=== PATIENT | female | born 1945 | race Caucasian/White ===

== ENCOUNTER 2016-09-19 13:31 | Observation (INO) | payer MEDICARE ==
[2016-09-19] MEDS ORDERED: NS 0.9% 1000 ML* 1,000 ML IV ONE (14:02)
[2016-09-19 14:35] LABS: Hematocrit 43 % (35-47); Hemoglobin 13.6 g/dl (12.0-16.0); Mean Corpuscular HGB Conc 32 g/dl (31-36); Mean Corpuscular Hemoglobin 27 pg (27-31); Mean Corpuscular Volume 84 fL (80-97); Mean Platelet Volume 8 um3 (7.4-10.4); Red Blood Count 5.05 10^6/ul (4.0-5.4); Red Cell Distribution Width 15 % (10.5-15); White Blood Count 14.7 10^3/ul (3.5-10.8)
[2016-09-19 14:48] LABS: BUN/Creatinine Ratio 20.3 (8-20); C Reactive Protein 36.28 mg/L (< 5.00); Calcium 9.3 mg/dL (8.6-10.3); EGFR African American 99.5 (>60); EGFR Non-African American 77.4 (>60); Magnesium 2.2 mg/dL (1.9-2.7); Potassium 3.6 mmol/L (3.5-5.0); Total Bilirubin 0.4 mg/dL (0.2-1.0)
[2016-09-19 14:49] LABS: Troponin I 0.01 ng/mL (<0.04)
--- NOTE | 2016-09-19 14:53 | RAD ---
INDICATION: Near syncope and unsteady COMPARISON: Similar examination dated October 06, 2012 TECHNIQUE: Contiguous axial sections of the brain were obtained from the skull base to the vertex without contrast. FINDINGS: The ventricles, cisterns and sulci exhibit symmetrical and age-appropriate involutional changes similar in appearance to the previous CT of the brain. There are periventricular and subcortical white matter hypoattenuation, including a 4 mm focus at the right frontal lobe (image 11 of 32), most consistent with chronic microvascular disease. Otherwise the lopez-white matter differentiation is adequately maintained and there is no sulcal effacement. No significant focal abnormality or mass effect is present. There is no evidence for intracranial hemorrhage. There is coarse atherosclerotic calcification of the left vertebral artery and the bilateral petrous carotid arteries. No significant focal osseous abnormality is present. The visualized portion of the paranasal sinuses and mastoid air cells appear clear. IMPRESSION: Chronic findings as described above without acute intracranial abnormality.
--- NOTE | 2016-09-19 14:54 | RAD ---
INDICATION: Near syncope COMPARISON: Most recent comparison chest x-ray is dated July 29, 2013 TECHNIQUE: Single AP portable view of the chest was obtained. FINDINGS: Image quality is compromised due to the relative inferiority of a portable chest x-ray. The heart and mediastinum exhibit normal size and contour. The lungs are grossly clear. There is no evidence of a large pleural effusion. Visualized bones are normal for the patient's age. IMPRESSION: No radiographic evidence for acute cardiopulmonary abnormality on this portable chest x-ray.
[2016-09-19 15:31] LABS: TSH (Thyroid Stimulating Horm) 1.14 mcIU/mL (0.34-5.60)
[2016-09-19 16:14] LABS: Urine Bacteria Absent (Absent); Urine Bilirubin Negative (Negative); Urine Glucose 3+(>=500 mg/dL) (Negative); Urine Nitrite Negative (Negative)
--- NOTE | 2016-09-19 17:08 | ED ---
Mary Loredo Edward, scribed for Jean-Pierre Harper MD on 09/19/16 at 1357 . Syncope/Near Syncope - HPI Summary HPI Summary: 71 y/o female presents to ED c/o near-syncopal episode this morning a little after 11:00. Patient was standing outside of [facility] when the feeling that she was about to faint came upon suddenly. Patient still feels lightheaded and slightly dizzy now - characterized as a "fuzzy feeling" in the head. No LOC. Associated sx: tachycardia and unsteady gait. Denies CP, SOTELO, extremity and facial weakness, bloody or black stool, diarrhea and trouble urinating or defecating. Patient states her symptoms are not aggravated or alleviated by anything. PMHx [place] in 1999, IDDM, and Asthma. Patient takes aspirin and plavix. SHx , tonsillectomy. - History Of Current Complaint Chief Complaint: EDDizziness Time Seen by Provider: 09/19/16 13:48 Hx Obtained From: Patient Onset/Duration: Sudden Onset - This morning at [facility], Still Present - "Fuzzy feeling" in head Context: Other - No LOC Activity At Onset: Other - Standing Associated Head Trauma: No Aggravating Factor(s): Nothing Alleviating Factor(s): Nothing Associated Signs And Symptoms: Dizzy - Light dizziness - "fuzzy head feeling", Lightheadedness - Risk Factors Cardiac Risk Factors: Diabetes, Prior [place] - 1999 - Allergies/Home Medications Allergies/Adverse Reactions: Allergies Allergy/AdvReac Type Severity Reaction Status Date / Time Sulfa Antibiotics Allergy Unknown Unknown Verified 09/19/16 13:59 Reaction Details PMH/Surg Hx/FS Hx/Imm Hx Previously Healthy: No Endocrine/Hematology History: Reports: Hx Anticoagulant Therapy, Hx Diabetes Cardiovascular History: Reports: Hx Angina, Hx Coronary Artery Disease, Hx Hypercholesterolemia - HLD, Hx Hypertension, Hx Myocardial Infarction Denies: Hx Congestive Heart Failure, Hx Valvular Heart Disease Respiratory History: Reports: Hx Asthma Denies: Hx Chronic Obstructive Pulmonary Disease (COPD) GI History: Reports: Hx Gastroesophageal Reflux Disease, Hx Hiatal Hernia Comment Only: Other GI Disorders - GERD History: Denies: Hx Renal Disease Sensory History: Reports: Hx Contacts or Glasses, Hx Hearing Problem Opthamlomology History: Reports: Hx Contacts or Glasses - Surgical History Surgery Procedure, Year, and Place: CARDIAC CATH WITH STENTS X3 IN 2001. C- SECTION. TONSILLECTOMY. LEFT BREAST BIOPSY/BENIGN. Hx Anesthesia Reactions: No Infectious Disease History: Denies: Traveled Outside the [place] in Last 30 Days - Family History Known Family History: Positive: Cardiac Disease - Father of [place], Other - Breast cancer (mother) Negative: Diabetes - Social History Occupation: Retired Lives: Alone Alcohol Use: None Substance Use Type: Reports: None Review of Systems Constitutional: Negative Eyes: Negative ENT: Negative Cardiovascular: Negative Negative: Chest Pain Respiratory: Negative Gastrointestinal: Negative Positive: Other - No trouble defecating, no bloody or black stool. Negative: Diarrhea Genitourinary: Negative Negative: dysuria Musculoskeletal: Negative - No extremity weakness, no facial weakness Skin: Negative Neurological: Other - Lightheadedness, light dizziness, near-syncope Negative: Headache Psychological: Normal All Other Systems Reviewed And Are Negative: Yes Physical Exam Triage Information Reviewed: Yes Vital Signs On Initial Exam: Initial Vitals Temp Pulse Resp BP Pulse Ox 98.4 F 103 16 150/65 100 09/19/16 13:40 09/19/16 13:40 09/19/16 13:40 09/19/16 13:40 09/19/16 13:40 Vital Signs Reviewed: Yes Appearance: Positive: Well-Appearing, No Pain Distress Skin: Positive: Warm, Skin Color Reflects Adequate Perfusion, Dry Head/Face: Positive: Normal Head/Face Inspection Eyes: Positive: EOMI, VAN ENT: Positive: Normal ENT inspection Neck: Positive: Supple, Nontender Respiratory/Lung Sounds: Positive: Clear to Auscultation, Breath Sounds Present Cardiovascular: Positive: Tachycardia - Slight Abdomen Description: Positive: Nontender, Soft Bowel Sounds: Positive: Present Musculoskeletal: Positive: Normal, Strength/ROM Intact Neurological: Positive: Normal, Sensory/Motor Intact, Alert, Oriented to Person Place, Time Psychiatric: Positive: Normal, Affect/Mood Appropriate - [place] Coma Scale Best Eye Response: 4 - Spontaneous Best Motor Response: 6 - Obeys Commands Best Verbal Response: 5 - Oriented Diagnostics - Vital Signs Vital Signs Temp Pulse Resp BP Pulse Ox 09/19/16 13:40 98.4 F 103 16 150/65 100 - Laboratory Lab Results: Lab Results 09/19/16 09/19/16 09/19/16 Range/Units 14:15 14:15 14:15 WBC 14.7 H (3.5-10.8) 10^3/ul RBC 5.05 (4.0-5.4) 10^6/ul Hgb 13.6 (12.0-16.0) g/dl Hct 43 (35-47) % MCV 84 (80-97) fL MCH 27 (27-31) pg MCHC 32 (31-36) g/dl RDW 15 (10.5-15) % Plt Count 309 (150-450) 10^3/ul MPV 8 (7.4-10.4) um3 Neut % (Auto) 88.7 H (38-83) % Lymph % (Auto) 5.1 L (25-47) % [place] % (Auto) 5.4 (1-9) % Eos % (Auto) 0.3 (0-6) % Baso % (Auto) 0.5 (0-2) % Absolute Neuts (auto) 13.0 H (1.5-7.7) 10^3/ul Absolute Lymphs (auto) 0.8 L (1.0-4.8) 10^3/ul Absolute Monos (auto) 0.8 (0-0.8) 10^3/ul Absolute Eos (auto) 0 (0-0.6) 10^3/ul Absolute Basos (auto) 0.1 (0-0.2) 10^3/ul Absolute Nucleated RBC 0 10^3/ul Nucleated RBC % 0 INR (Anticoag Therapy) 0.89 (0.89-1.11) APTT 29.4 (26.0-36.3) seconds D-Dimer, Quantitative < 200 (Less Than 230) ng/mL Sodium 135 (133-145) mmol/L Potassium 3.6 (3.5-5.0) mmol/L Chloride 103 (101-111) mmol/L Carbon Dioxide 24 (22-32) mmol/L Anion Gap 8 (2-11) mmol/L BUN 15 (6-24) mg/dL Creatinine 0.74 (0.51-0.95) mg/dL Est GFR ( Amer) 99.5 (>60) Est GFR (Non-Af Amer) 77.4 (>60) BUN/Creatinine Ratio 20.3 H (8-20) Glucose 278 H (70-100) mg/dL Lactic Acid (0.5-2.0) mmol/L Calcium 9.3 (8.6-10.3) mg/dL Magnesium 2.2 (1.9-2.7) mg/dL Total Bilirubin 0.40 (0.2-1.0) mg/dL AST 17 (13-39) U/L ALT 14 (7-52) U/L Alkaline Phosphatase 63 (34-104) U/L Total Creatine Kinase 148 (10-223) U/L CK-MB (CK-2) 4.1 (0.6-6.3) ng/mL Troponin I 0.01 (<0.04) ng/mL C-Reactive Protein 36.28 H (< 5.00) mg/L B-Natriuretic Peptide ( - 100) pg/mL Total Protein 7.0 (6.4-8.9) g/dL Albumin 4.0 (3.2-5.2) g/dL Globulin 3.0 (2-4) g/dL Albumin/Globulin Ratio 1.3 (1-3) Lipase 12 (11.0-82.0) U/L TSH 1.14 (0.34-5.60) mcIU/mL Urine Color Urine Appearance Urine pH (5-9) Ur Specific [place] (1.010-1.030) Urine Protein (Negative) Urine Ketones (Negative) Urine Blood (Negative) Urine Nitrate (Negative) Urine Bilirubin (Negative) Urine Urobilinogen (Negative) Ur Leukocyte Esterase (Negative) Urine WBC (Auto) (Absent) Urine RBC (Auto) (Absent) Ur Squamous Epith Cells (Absent) Urine Bacteria (Absent) Urine Glucose (Negative) 09/19/16 09/19/16 09/19/16 Range/Units 14:15 14:15 16:02 WBC (3.5-10.8) 10^3/ul RBC (4.0-5.4) 10^6/ul Hgb (12.0-16.0) g/dl Hct (35-47) % MCV (80-97) fL MCH (27-31) pg MCHC (31-36) g/dl RDW (10.5-15) % Plt Count (150-450) 10^3/ul MPV (7.4-10.4) um3 Neut % (Auto) (38-83) % Lymph % (Auto) (25-47) % [place] % (Auto) (1-9) % Eos % (Auto) (0-6) % Baso % (Auto) (0-2) % Absolute Neuts (auto) (1.5-7.7) 10^3/ul Absolute Lymphs (auto) (1.0-4.8) 10^3/ul Absolute Monos (auto) (0-0.8) 10^3/ul Absolute Eos (auto) (0-0.6) 10^3/ul Absolute Basos (auto) (0-0.2) 10^3/ul Absolute Nucleated RBC 10^3/ul Nucleated RBC % INR (Anticoag Therapy) (0.89-1.11) APTT (26.0-36.3) seconds D-Dimer, Quantitative (Less Than 230) ng/mL Sodium (133-145) mmol/L Potassium (3.5-5.0) mmol/L Chloride (101-111) mmol/L Carbon Dioxide (22-32) mmol/L Anion Gap (2-11) mmol/L BUN (6-24) mg/dL Creatinine (0.51-0.95) mg/dL Est GFR ( Amer) (>60) Est GFR (Non-Af Amer) (>60) BUN/Creatinine Ratio (8-20) Glucose (70-100) mg/dL Lactic Acid 1.4 (0.5-2.0) mmol/L Calcium (8.6-10.3) mg/dL Magnesium (1.9-2.7) mg/dL Total Bilirubin (0.2-1.0) mg/dL AST (13-39) U/L ALT (7-52) U/L Alkaline Phosphatase (34-104) U/L Total Creatine Kinase (10-223) U/L CK-MB (CK-2) (0.6-6.3) ng/mL Troponin I (<0.04) ng/mL C-Reactive Protein (< 5.00) mg/L B-Natriuretic Peptide 130 H ( - 100) pg/mL Total Protein (6.4-8.9) g/dL Albumin (3.2-5.2) g/dL Globulin (2-4) g/dL Albumin/Globulin Ratio (1-3) Lipase (11.0-82.0) U/L TSH (0.34-5.60) mcIU/mL Urine Color Straw Urine Appearance Clear Urine pH 7.0 (5-9) Ur Specific [place] 1.007 L (1.010-1.030) Urine Protein Negative (Negative) Urine Ketones Trace H (Negative) Urine Blood Negative (Negative) Urine Nitrate Negative (Negative) Urine Bilirubin Negative (Negative) Urine Urobilinogen Negative (Negative) Ur Leukocyte Esterase 2+ H (Negative) Urine WBC (Auto) 1+(6-10/hpf) H (Absent) Urine RBC (Auto) Absent (Absent) Ur Squamous Epith Cells Present H (Absent) Urine Bacteria Absent (Absent) Urine Glucose 3+(>=500 mg/dl) H (Negative) Result Diagrams: 09/19/16 14:15 09/19/16 14:15 Lab Statement: Any lab studies that have been ordered have been reviewed, and results considered in the medical decision making process. - Radiology Chest XRAY Xray Interpretation: No Acute Changes - No radiographic evidence for acute cardiopulmonary abnormality on this portable chest x-ray. Radiology Interpretation Completed By: Radiologist - CT Brain CT CT Interpretation: Positive (See Comments) - Chronic findings as described above without acute intracranial abnormality. CT Interpretation Completed By: Radiologist - EKG 1 EKG Rhythm: Sinus Tachycardia - @ 103 bpm EKG Interpretation: 14:11 - Prolonged QT interval, QTC of 502. Q-waves in III and aVF. EKG Comparison: No Significant Change - From 07/29/23 EKG Course/Dx Course Of Treatment: NO CRITICAL CARE TIME. WHEN PATIENT AMBULATED IN ED SHE STILL FELT UNSTEADY. SHE LIVES ALONE. SHE REPORTS A PRIOR PAIN LESS LA AND HAS CONCERNS THIS EPISODE COULD BE CARDIAC. DISCUSSED WITH HOSPITALIST; ADMIT STABLE. - Diagnoses Provider Diagnoses: Near syncope, Weakness - Physician Notifications Discussed Care of Patient With: Enio Kemp Time Discussed With Above Provider: 16:08 Instructed by Provider To: Admit As Inpatient - Dr. Kemp agreed to admit Discharge - Discharge Plan Condition: Stable Disposition: ADMITTED TO [facility] The documentation as recorded by the Mary santso Edward accurately reflects the service I personally performed and the decisions made by me, Jean-Pierre Harper MD.
[2016-09-19] MEDS ORDERED: hydrALAZINE IV* 20 MG/ML VIAL IV SLOW PU PRN (17:27)
[2016-09-19] MEDS ORDERED: Acetaminophen TAB* 325 MG PO PRN (17:43)
[2016-09-19] MEDS ORDERED: cefTRIAXone VIAL(*) 1,000 MG in NS 0.9% 50 ML* 50 ML IVPB SCH (18:00)
[2016-09-19] MEDS ORDERED: Enoxaparin(*) 40 MG/0.4 ML SYR SUBCUT SCH (18:00)
[2016-09-19] MEDS: Mometasone/Formoter 200/5 MDI INH SCH (20:11)
[2016-09-19] MEDS: Metoprolol Succinate XL TAB* 50 MG PO SCH (21:19)
[2016-09-19] MEDS ORDERED: Aspirin Low Dose CHEW TAB* 81 MG PO SCH (22:18)
[2016-09-19] MEDS ORDERED: Clopidogrel TAB* 75 MG PO SCH ×2 (22:18→23:20)
[2016-09-19] MEDS ORDERED: Montelukast Sodium TAB* 10 MG PO SCH ×2 (22:19→23:20)
--- NOTE | 2016-09-19 23:39 | HP ---
CC: Dr. Kaur; Dr. Jacome; Dr. Perry * MEDICINE HISTORY AND PHYSICAL: DATE OF ADMISSION: 09/19/16 PROVIDER: Debra Carroll NP ATTENDING PHYSICIAN: Dr. Trudi Baxter (as dictated by Debra Carroll NP). PRIMARY CARE PROVIDER: Dr. Kaur. PRIMARY SURGICAL FORCEPS FABRICATOR: Dr. Jacome. PRIMARY FOOD SERVICE ASSOCIATE: Dr. Perry. CHIEF COMPLAINT: Dizziness, near syncope. HISTORY OF PRESENT ILLNESS: Ms. Elder is a 71-year-old female, who presented to the ED this afternoon after experiencing a near syncopal episode this morning , shortly after 11 o'clock. The patient states that she went to [employer] this morning and sat through the service, was able to get through the service without any difficulty. After [employer]ah[employer], she was walking around and was standing outside talking to someone when she suddenly felt like she was getting warm and dizzy. She actually reached out and tried to grab the arm of the person she was talking to and the patient was then guided to a sitting position by other members of the [employer] and given water. She was taken home, but she still reported feeling dizzy and "fuzzy." She also reported that she felt more unsteady than usual. She did arrive in the ER and did receive IV fluids and states that she felt a little bit better after the IV fluids. She denies any actual loss of consciousness and she denies any dizziness at this time. She does report a remote history of a syncopal event for about 40 years ago that was secondary to heat stroke. The patient denies any chest pain, headache, focal weakness, difficulty with speech, nausea, vomiting or diarrhea, bleeding or bloody stools, dysuria or urinary frequency. She only endorses feeling of a racing heart beat and lightheadedness at the time of the event. She has not taken anything else for her symptoms and she does not endorse any aggravating or alleviating factors. The patient lives at home by herself. Her son is accompanying her. He states that her ambulation is at baseline and at baseline she is "a little shaky." In the ED, the patient had orthostatic vital signs done, which were negative. The was concern for her unsteady gait and the patient also has notable hypertension. She states that she usually has a blood pressure of 120 to 130 systolically. Currently, she is in the 180s and 190s. PAST MEDICAL HISTORY: 1. Type 1 diabetes. The patient uses the insulin pump. 2. History of coronary artery disease with known RCA occlusion of 95% with collaterals. 3. Previous [place] in 1999. 4. Diabetic neuropathy. 5. Diabetic retinopathy. 6. Hypertension. 7. COPD. 8. Asthma. 9. History of seizure disorder. The patient states that she had some focal seizures many years ago around 2002 and was on medications for short time and no longer takes medications. 10. GERD. 11. Dyslipidemia. PAST SURGICAL HISTORY: Includes: 1. . 2. Left breast biopsy. 3. Multiple cardiac catheterizations. HOME MEDICATIONS: 1. Cartia XT 180 mg daily. 2. Theophylline ER 300 mg daily. 3. Omeprazole 40 mg daily. 4. Simvastatin 5 mg daily. 5. Humalog insulin via pump. 6. Asmanex inhaler 220 mcg 1 puff inhaled q. day. 7. Advair 500 mg 1 puff b.i.d. 8. Montelukast 10 mg daily. 9. Clopidogrel 75 mg daily. 10. Metoprolol ER 50 mg b.i.d. 11. Furosemide 20 mg p.r.n. 12. Prednisone 4 mg daily. 13. Aspirin 81 mg daily. Note, these medications need to be confirmed with the pharmacy, and by the patient's report. ALLERGIES: Include SULFA and FISH. FAMILY HISTORY: She reports a history of cancer in her mother and history of heart disease in her father. SOCIAL HISTORY: The patient denies any tobacco use or smoking. She denies alcohol and illicit drug use. She is retired. She lives alone. Her son, Real Alvarado, is her surrogate decision maker in the event of an emergency. REVIEW OF SYSTEMS: As per HPI, all those not mentioned are negative. PHYSICAL EXAMINATION GENERAL: Ms. Elder is a well-appearing, well-developed, well-nourished female , lying in the ED stretcher in no acute distress. VITAL SIGNS: Temperature 98.4, heart rate 93, respiratory rate 14, blood pressure 185/____, and O2 saturation of 97% on room air. HEENT: Head is atraumatic, normocephalic. Face is symmetrical. Pupils are equal, round, and reactive to light. Extraocular movements are intact. External ears and nose are normal. Oral mucosa appears moist. There is no oropharyngeal erythema. NECK: Supple. No JVD noted. No lymphadenopathy appreciated. The patient has full range of motion. RESPIRATORY: Lungs are clear to auscultation. There is no accessory muscle use. CARDIAC: S1, S2 heart sounds. Regular rate and rhythm. The patient is slightly tachycardic. ABDOMEN: Soft, nontender, nondistended. Bowel sounds are present times all 4 quadrants. The patient has reducible hernia. MUSCULOSKELETAL: The patient has full range of motion. There is no clubbing or cyanosis. NEURO: The patient is alert and oriented x3. She moves all extremities. Cranial nerves II through XII are grossly intact. There is no pronator drift. Sensation is intact to light touch bilaterally to lower extremities. No focal deficits noted. SKIN: Limited examination, but appears warm, dry, and intact with no rashes or ulcerations visualized. DIAGNOSTIC STUDIES/LAB DATA: CBC: WBC 14.7, hemoglobin 13.6, hematocrit 43, platelet count 309. D-dimer less than 200, INR 0.89, PTT 29.4. CMP: Sodium 135, potassium 3.6, chloride 103, carbon dioxide 24, BUN 15, creatinine 0.74, glucose 278, lactic acid 1.4, calcium 9.3, magnesium 2.2. Total bilirubin 0.4, AST 17, ALT 14, alk phos 63, total CK 148. Troponin 0.01. CRP . BNP 130. Albumin 4.0, lipase 12. TSH 1.14. Urinalysis shows trace ketones, 2+ leukocyte esterase, 1+ urinary wbc's, and 3+ glucose. An EKG showed sinus tachycardia with T-wave inversions in leads II, III, and aVF that are present on previous EKGs. The patient does have a prolonged QTc interval of 502. There are no significant changes from her previous EKGs on record. Chest x-ray, impression: No radiographic evidence for acute cardiopulmonary abnormality on this portable chest x-ray. CT of the brain, impression: Chronic findings without acute intracranial abnormality. Old medical records were reviewed. ASSESSMENT AND PLAN: Ms. Elder is a 71-year-old female, who presented to the ER for concern for near syncope. We will admit her to the medicine floor for further monitoring with plans as follows: 1. Near syncope: Etiology of this is unclear. It appears that the patient may have had some sun exposure that may have contributed to her symptoms. It is also possible the patient was mildly dehydrated as she does report that she does not often drink enough fluids. In any event, it is worthwhile to monitor her on telemetry and see if there are repeat episodes. She did receive a liter of fluid in the ER. She is not orthostatic. The patient's blood pressure is markedly elevated, so I do not want to continue to give her fluid at this time. We will encourage p.o. fluids and reconcile her home medications in order to better control her blood pressure. Additionally, we will check troponins and the patient will be ordered neurological checks. The patient does have elevated white blood cell count, which may be secondary to her acute near syncopal event as a leukemoid reaction, we will recheck it tomorrow. The patient's urine does show some leukocyte esterase due to presence of near syncope and some worsening weakness. I will start the patient on ceftriaxone while we are awaiting urine culture. We will also check vital signs and I's and O's, and have the patient evaluated by PT/OT tomorrow. 2. Weakness: As above, the patient again will have PT/OT evaluation, appears to be secondary to potentially urinary tract infection. 3. Hypertension: The patient reports that she has better controlled blood pressure at home, so I am unsure if she took her medications today. She states that she did. It is unclear as to why she is little hypertensive. I suspect that she is not well controlled at home. She does report that her metoprolol was recently increased. We will continue her home medications once confirmed. Additionally, she is on a p.r.n. hydralazine for any persistent blood pressure. Continue to monitor closely. 4. Type 1 diabetes: Continue fingerstick blood glucose checks a.c., h.s., and the patient may use her home insulin pump for boluses. 5. History of coronary artery disease: Continue home beta tamra, aspirin, and Plavix. 6. History of gastroesophageal reflux disease: Continue PPI. 7. Dyslipidemia: Continue home statin. 8. Chronic obstructive pulmonary disease and asthma: Continue inhalers and prednisone, which the patient is on chronically. Continue home theophylline. 9. FEN: The patient is ordered a consistent carbohydrate diet. 10. DVT prophylaxis: Subcu Lovenox. 11. Code status: She is a full code. TIME SPENT: Time spent on this admission was approximately 60 minutes, more than half that time was spent [id number] with the patient and family obtaining history and physical, performing the physical examination, and reviewing the plan of care. Plan of care was also reviewed with my attending, Dr. Baxter, who is in agreement. DEBRA CARROLL, HISTOLOGY MANAGER [id number]/[id number] #: [id number]
[2016-09-20 05:15] LABS: Hematocrit 44 % (35-47); Hemoglobin 13.9 g/dl (12.0-16.0); Mean Corpuscular HGB Conc 32 g/dl (31-36); Mean Corpuscular Hemoglobin 27 pg (27-31); Mean Corpuscular Volume 86 fL (80-97); Mean Platelet Volume 8 um3 (7.4-10.4); Red Blood Count 5.08 10^6/ul (4.0-5.4); Red Cell Distribution Width 16 % (10.5-15); White Blood Count 10.7 10^3/ul (3.5-10.8)
[2016-09-20 05:25] LABS: BUN/Creatinine Ratio 16.1 (8-20); Calcium 8.9 mg/dL (8.6-10.3); EGFR Non-African American 94.9 (>60); Potassium 3.5 mmol/L (3.5-5.0)
[2016-09-20] MEDS ORDERED: CMC:Pantoprazole TAB (NF) 40 MG TAB PO SCH (06:00)
[2016-09-20 08:09] VITALS: BP 144/63
[2016-09-20] MEDS: Metoprolol Succinate XL TAB* 50 MG PO SCH (08:14)
[2016-09-20] MEDS: Mometasone/Formoter 200/5 MDI INH SCH (08:21)
[2016-09-20] MEDS ORDERED: Montelukast Sodium TAB* 10 MG PO SCH (09:00)
[2016-09-20] MEDS ORDERED: Aspirin Low Dose CHEW TAB* 81 MG PO SCH ×2 (09:00→21:00)
[2016-09-20] MEDS ORDERED: Clopidogrel TAB* 75 MG PO SCH (09:00)
[2016-09-20] MEDS ORDERED: Theophylline TAB* 300 MG PO SCH (09:00)
[2016-09-20] MEDS ORDERED: predniSONE TAB* 1 MG PO SCH (09:00)
[2016-09-20] MEDS ORDERED: Diltiazem CD CAP* 180 MG PO SCH (09:00)
[2016-09-20] MEDS ORDERED: Mometasone 220 MCG MDI INH SCH (09:00)
--- NOTE | 2016-09-20 10:04 | PN ---
Subjective Date of Service: 09/20/16 Interval History: Patient seen and examined at bedside. Reports feeling "so much better" and reports that she walked with PT this morning. Patient given outpatient referral for PT, which she states she will follow-up on. Denies fever/chills, SOTELO, weakness, dizziness, CP, SOB, abd pain, n/v. Patient feels improved and wishes to go home. Telemetry: SR 80s Family History: Unchanged from Admission Social History: Unchanged from Admission Past Medical History: Unchanged from Admission Objective Active Medications: Acetaminophen (Tylenol Tab*) 650 mg PO Q4H PRN PRN Reason: FEVER/PAIN Aspirin (Aspirin Low Dose Tab*) 81 mg PO DAILY@2100 [facility] Atorvastatin Calcium (Lipitor*) 10 mg PO 1700 [facility] Clopidogrel Bisulfate (Plavix Tab*) 75 mg PO DAILY@2100 [facility] Last Admin: 09/19/16 23:24 Dose: 75 mg Diltiazem HCl (Cardizem Cd Cap*) 180 mg PO DAILY [facility] Last Admin: 09/20/16 08:14 Dose: 180 mg Enoxaparin Sodium (Lovenox(*)) 40 mg SUBCUT Q24H [facility] Last Admin: 09/19/16 18:11 Dose: 40 mg Hydralazine HCl (Apresoline Iv*) 5 mg IV SLOW PU Q6H PRN PRN Reason: BLOOD PRESSURE Ceftriaxone Sodium 1,000 mg/ (Sodium Chloride) 50 mls @ 200 mls/hr IVPB Q24H [facility] Last Admin: 09/19/16 18:11 Dose: 200 mls/hr Metoprolol Succinate (Toprol Xl Tab*) 50 mg PO BID [facility] Last Admin: 09/20/16 08:14 Dose: 50 mg Mometasone Furoate/Formoterol Fumar (Dulera 200/5 Mdi*) 2 puff INH BID [facility] Last Admin: 09/20/16 08:21 Dose: 2 puff Montelukast Sodium (Singulair Tab*) 10 mg PO DAILY@2100 [facility] Last Admin: 09/19/16 23:24 Dose: 10 mg Pantoprazole Sodium (Protonix Tab (Nf)) 40 mg PO DAILY@0600 [facility] Last Admin: 09/20/16 05:35 Dose: 40 mg Prednisone (Deltasone Tab*) 4 mg PO DAILY [facility] Last Admin: 09/20/16 08:14 Dose: 4 mg Theophylline (Isma Dur*) 300 mg PO DAILY [facility] Last Admin: 09/20/16 08:14 Dose: 300 mg Vital Signs 09/19/16 09/19/16 09/19/16 17:35 17:40 20:00 Temperature 98.3 F 98.1 F Pulse Rate 93 93 Respiratory 12 18 20 Rate Blood Pressure 185/71 186/87 (mmHg) O2 Sat by Pulse 98 Oximetry 09/19/16 09/20/16 09/20/16 23:51 04:37 07:42 Temperature 98.1 F 97.9 F 97.6 F Pulse Rate 92 89 78 Respiratory 20 20 16 Rate Blood Pressure 157/64 154/67 144/63 (mmHg) O2 Sat by Pulse 98 97 99 Oximetry 09/20/16 08:24 Temperature Pulse Rate 78 Respiratory 16 Rate Blood Pressure (mmHg) O2 Sat by Pulse 98 Oximetry Oxygen Devices in Use Now: None Appearance: Older female, OOB to chair, NAD Eyes: PERRLA Ears/Nose/Mouth/Throat: Mucous Membranes Moist Neck: NL Appearance and Movements; NL JVP Respiratory: Symmetrical Chest Expansion and Respiratory Effort, Clear to Auscultation Cardiovascular: NL Sounds; No Murmurs; No JVD, RRR Abdominal: NL Sounds; No Tenderness; No Distention Extremities: No Edema Skin: No Rash or Ulcers Neurological: Alert and Oriented x 3, NL Gait, NL Muscle Strength and Tone Lines/Tubes/Other Access: Clean, Dry and Intact Peripheral IV Nutrition: Taking PO's Result Diagrams: 09/20/16 04:27 09/20/16 04:27 Additional Lab and Data: Lab Results 09/19/16 09/19/16 09/19/16 Range/Units 14:15 14:15 14:15 WBC 14.7 H (3.5-10.8) 10^3/ul RBC 5.05 (4.0-5.4) 10^6/ul Hgb 13.6 (12.0-16.0) g/dl Hct 43 (35-47) % MCV 84 (80-97) fL MCH 27 (27-31) pg MCHC 32 (31-36) g/dl RDW 15 (10.5-15) % Plt Count 309 (150-450) 10^3/ul MPV 8 (7.4-10.4) um3 Neut % (Auto) 88.7 H (38-83) % Lymph % (Auto) 5.1 L (25-47) % [place] % (Auto) 5.4 (1-9) % Eos % (Auto) 0.3 (0-6) % Baso % (Auto) 0.5 (0-2) % Absolute Neuts (auto) 13.0 H (1.5-7.7) 10^3/ul Absolute Lymphs (auto) 0.8 L (1.0-4.8) 10^3/ul Absolute Monos (auto) 0.8 (0-0.8) 10^3/ul Absolute Eos (auto) 0 (0-0.6) 10^3/ul Absolute Basos (auto) 0.1 (0-0.2) 10^3/ul Absolute Nucleated RBC 0 10^3/ul Nucleated RBC % 0 INR (Anticoag Therapy) 0.89 (0.89-1.11) APTT 29.4 (26.0-36.3) seconds D-Dimer, Quantitative < 200 (Less Than 230) ng/mL Sodium 135 (133-145) mmol/L Potassium 3.6 (3.5-5.0) mmol/L Chloride 103 (101-111) mmol/L Carbon Dioxide 24 (22-32) mmol/L Anion Gap 8 (2-11) mmol/L BUN 15 (6-24) mg/dL Creatinine 0.74 (0.51-0.95) mg/dL Est GFR ( Amer) 99.5 (>60) Est GFR (Non-Af Amer) 77.4 (>60) BUN/Creatinine Ratio 20.3 H (8-20) Glucose 278 H (70-100) mg/dL Lactic Acid (0.5-2.0) mmol/L Calcium 9.3 (8.6-10.3) mg/dL Magnesium 2.2 (1.9-2.7) mg/dL Total Bilirubin 0.40 (0.2-1.0) mg/dL AST 17 (13-39) U/L ALT 14 (7-52) U/L Alkaline Phosphatase 63 (34-104) U/L Total Creatine Kinase 148 (10-223) U/L CK-MB (CK-2) 4.1 (0.6-6.3) ng/mL Troponin I 0.01 (<0.04) ng/mL C-Reactive Protein 36.28 H (< 5.00) mg/L B-Natriuretic Peptide ( - 100) pg/mL Total Protein 7.0 (6.4-8.9) g/dL Albumin 4.0 (3.2-5.2) g/dL Globulin 3.0 (2-4) g/dL Albumin/Globulin Ratio 1.3 (1-3) Lipase 12 (11.0-82.0) U/L TSH 1.14 (0.34-5.60) mcIU/mL Urine Color Urine Appearance Urine pH (5-9) Ur Specific [place] (1.010-1.030) Urine Protein (Negative) Urine Ketones (Negative) Urine Blood (Negative) Urine Nitrate (Negative) Urine Bilirubin (Negative) Urine Urobilinogen (Negative) Ur Leukocyte Esterase (Negative) Urine WBC (Auto) (Absent) Urine RBC (Auto) (Absent) Ur Squamous Epith Cells (Absent) Urine Bacteria (Absent) Urine Glucose (Negative) 09/19/16 09/19/16 09/19/16 Range/Units 14:15 14:15 16:02 WBC (3.5-10.8) 10^3/ul RBC (4.0-5.4) 10^6/ul Hgb (12.0-16.0) g/dl Hct (35-47) % MCV (80-97) fL MCH (27-31) pg MCHC (31-36) g/dl RDW (10.5-15) % Plt Count (150-450) 10^3/ul MPV (7.4-10.4) um3 Neut % (Auto) (38-83) % Lymph % (Auto) (25-47) % [place] % (Auto) (1-9) % Eos % (Auto) (0-6) % Baso % (Auto) (0-2) % Absolute Neuts (auto) (1.5-7.7) 10^3/ul Absolute Lymphs (auto) (1.0-4.8) 10^3/ul Absolute Monos (auto) (0-0.8) 10^3/ul Absolute Eos (auto) (0-0.6) 10^3/ul Absolute Basos (auto) (0-0.2) 10^3/ul Absolute Nucleated RBC 10^3/ul Nucleated RBC % INR (Anticoag Therapy) (0.89-1.11) APTT (26.0-36.3) seconds D-Dimer, Quantitative (Less Than 230) ng/mL Sodium (133-145) mmol/L Potassium (3.5-5.0) mmol/L Chloride (101-111) mmol/L Carbon Dioxide (22-32) mmol/L Anion Gap (2-11) mmol/L BUN (6-24) mg/dL Creatinine (0.51-0.95) mg/dL Est GFR ( Amer) (>60) Est GFR (Non-Af Amer) (>60) BUN/Creatinine Ratio (8-20) Glucose (70-100) mg/dL Lactic Acid 1.4 (0.5-2.0) mmol/L Calcium (8.6-10.3) mg/dL Magnesium (1.9-2.7) mg/dL Total Bilirubin (0.2-1.0) mg/dL AST (13-39) U/L ALT (7-52) U/L Alkaline Phosphatase (34-104) U/L Total Creatine Kinase (10-223) U/L CK-MB (CK-2) (0.6-6.3) ng/mL Troponin I (<0.04) ng/mL C-Reactive Protein (< 5.00) mg/L B-Natriuretic Peptide 130 H ( - 100) pg/mL Total Protein (6.4-8.9) g/dL Albumin (3.2-5.2) g/dL Globulin (2-4) g/dL Albumin/Globulin Ratio (1-3) Lipase (11.0-82.0) U/L TSH (0.34-5.60) mcIU/mL Urine Color Straw Urine Appearance Clear Urine pH 7.0 (5-9) Ur Specific [place] 1.007 L (1.010-1.030) Urine Protein Negative (Negative) Urine Ketones Trace H (Negative) Urine Blood Negative (Negative) Urine Nitrate Negative (Negative) Urine Bilirubin Negative (Negative) Urine Urobilinogen Negative (Negative) Ur Leukocyte Esterase 2+ H (Negative) Urine WBC (Auto) 1+(6-10/hpf) H (Absent) Urine RBC (Auto) Absent (Absent) Ur Squamous Epith Cells Present H (Absent) Urine Bacteria Absent (Absent) Urine Glucose 3+(>=500 mg/dl) H (Negative) Assess/Plan/Problems-Billing Assessment: Ms. Elder is a 71 yo female with a PMH of Type 1 DM, HTN, CAD, COPD/asthma, GERD, hx of seizure disorder, and dyslipidemia who presented to the ED on 09/19 with near syncope and weakness. - Patient Problems (1) Near syncope Comment: Resolved, suspect secondary to dehydration No further episodes here in the hospital No arrhythmias noted on telemetry, trops negative Patient cleared by PT/OT for return to home (2) Weakness Code(s): R53.1 - WEAKNESS Comment: Following near syncopal episode, suspect secondary to dehydration Now resolved PT/OT consults - no acute needs identified (3) HTN (hypertension) Code(s): I10 - ESSENTIAL (PRIMARY) HYPERTENSION Comment: SBP 180s-190s in ED yesterday Improved, once home meds resumed Unclear etiology, as patient states she is normally well controlled. Potentially stress, IVF, white coat syndrome, missed home meds. Patient recommended follow-up with PCP, if continued elevation, will need medication adjustment. (4) Type 1 diabetes mellitus Comment: BG fairly well controlled, patient using home insulin pump Type 1 secondary to measles infection as a child With neuropathy and retinopathy HgbA1c 8.9 [facility] referral for outpatient diabetes education (5) History of coronary artery disease Code(s): Z86.79 - PERSONAL HISTORY OF OTHER DISEASES OF THE CIRCULATORY SYSTEM Comment: Continue home ASA, clopidogrel, metoprolol. Stable, no c/o chest pain or other concerning symptoms Troponins negative, no significant changes to EKG (Q waves and T wave inversions seen consistent with previous EKG) Outpatient follow-up with cardiology as previously scheduled. (6) GERD (gastroesophageal reflux disease) Code(s): K21.9 - GASTRO-ESOPHAGEAL REFLUX DISEASE WITHOUT ESOPHAGITIS Comment : Continue omeprazole. (7) Dyslipidemia Code(s): E78.5 - HYPERLIPIDEMIA, UNSPECIFIED Comment: Continue statin. (8) COPD (chronic obstructive pulmonary disease) Code(s): J44.9 - CHRONIC OBSTRUCTIVE PULMONARY DISEASE, UNSPECIFIED Comment: Continue home prednisone, Advair, Asmanex. (9) DVT prophylaxis Comment: SQ Lovenox Status and Disposition: D/c to home.
[2016-09-20] MEDS ORDERED: Atorvastatin* 10 MG TAB PO SCH (17:00)
--- NOTE | 2016-09-20 22:42 | DS ---
CC: Dr. Kaur; Dr. Jacome; Dr. Perry * DISCHARGE SUMMARY: DATE OF ADMISSION: 09/19/16 DATE OF DISCHARGE: 09/20/16 PROVIDER: Debra Carrlol NP ATTENDING PHYSICIAN: Dr. Leann Rossi * (as dictated by Debra Carroll NP) PRIMARY CARE PROVIDER: Dr. Kaur. PRIMARY DISCHARGE DIAGNOSES: 1. Near syncope. 2. Weakness. 3. Hypertension. SECONDARY DISCHARGE DIAGNOSES: 1. Type 1 diabetes. 2. History of coronary artery disease with known right coronary artery occlusion of 95% with collaterals. 3. Previous myocardial infarction in 1999. 4. Diabetic neuropathy. 5. Diabetic retinopathy. 6. Chronic obstructive pulmonary disease. 7. Asthma. 8. History of seizure disorder, not on antiepileptics. 9. Gastroesophageal reflux disease. 10. Dyslipidemia. MEDICATIONS AT DISCHARGE: 1. Prednisone 4 mg daily. 2. Omeprazole 40 mg daily. 3. Rosuvastatin 5 mg daily. 4. Mometasone 220 mcg one puff inhaled daily. 5. Diltiazem 180 mg q.p.m. 6. Clopidogrel 75 mg at bedtime. 7. Aspirin 81 mg daily. 8. Albuterol inhaler 2 puffs inhaled q.i.d. p.r.n. 9. Theophylline ER 300 mg daily. 10. Furosemide 20 mg daily p.r.n. 11. Advair 1 puff inhaled b.i.d. 12. Nitroglycerin 0.4 mg sublingual q. 5 minutes p.r.n. 13. Singulair 10 mg at bedtime. 14. Metoprolol succinate XL 50 mg daily. 15. Insulin lispro via pump, maximum daily dose 80 units daily. Note, these medications were obtained from [facility] in [place] as the patient did not recall and the office was not open for inquiry. HOSPITAL COURSE OF STAY: For full details, please refer to the H and P provided on 09/19/16. In summary, Ms. Elder is a 71-year-old female who presented to the ER on 09/19/16 after a near-syncopal event that occurred at [facility]. The patient reports making it to the [facility] service and walking around and suddenly feeling dizzy and as if she is going to pass out. The feeling persisted and she was brought in to the ER where she received fluids. The patient states that she got better after receiving fluids, but still felt shaky. She was unable to safely ambulate in the ER and there was concern for discharge to home as she does live by herself. She was admitted overnight for further observation and monitoring. No further episodes were noted and she did feel better the following morning. She did work with physical therapy and occupational therapy, who identified no acute concerns or needs for home. The patient was referred to outpatient physical therapy for further strengthening. She was advised to use her cane to help with balance. No arrhythmias noted on telemetry. Orthostatic vital signs were negative. Troponins were negative for acute coronary syndrome and there were no ischemic EKG changes. The patient denied chest pain or any other concerning symptoms throughout her stay. The only issue of concern was her blood pressure, which was elevated in the ER at 180 to 190 systolically. However, once her home medications were resumed, this improved and her last documented blood pressure prior to discharge was 144/63. Her heart rate was 78. The patient states that her blood pressure was typically well controlled and is usually in the 120s to 130s systolically. She was advised to continue to monitor this and follow up with Dr. Kaur in the event that this blood pressure elevation persists. The patient verbalized understanding. No further complaints or needs identified. The patient's blood sugar was mostly well controlled here in the hospital. Her hemoglobin A1c was noted to be 8.9. She did receive a referral to the [facility] for diabetes education. CONCERNS AT DISCHARGE: Ms. Elder is discharged to home on 09/20/16. She has been advised to follow up with her PCP within the week. The patient is also scheduled to see Dr. Jacome this year and follow up with Dr. Perry as well. The patient was advised to follow up as previously indicated by those offices. Outpatient followup, the patient needs to have blood pressure monitoring at her followup visit to ensure that she does not have persistent hypertension. Again , the patient had reported blood pressures as high as 195/70 here in the hospital, but this did improve prior to discharge. DIET: Consistent carbohydrate, heart healthy diet. ACTIVITY: As tolerated. CONDITION: Improved, stable. DISPOSITION: To home. TIME SPENT: Time spent on this discharge was approximately 40 minutes. Again, this is only a brief summary of the patient's hospital course of stay. For full details, please refer to the full medical record. If you have any further questions or need further assistance, please feel free to contact me at [phone]. DEBRA CARROLL NP [id number]/CPS #: [id number] [facility]
== END 2016-09-20 11:21 | disposition home or self-care (01) ==
LOC: ED 13:31 → MEDTELE 16:28 → OBSVTOIN 17:17 → INTOOBSV 17:17 → UNDODISOB 09-20 11:21
PROVIDERS: ADMIT Internal Medicine; ATTEND Hospitalist
DX: R55 Syncope and collapse (principal); R53.1 Weakness; I10 Essential (primary) hypertension; I25.10 Atherosclerotic heart disease of native coronary artery without angina pectoris; E10.40 Type 1 diabetes mellitus with diabetic neuropathy, unspecified; E10.319 Type 1 diabetes mellitus with unspecified diabetic retinopathy without macular edema; Z79.4 Long term (current) use of insulin; Z96.41 Presence of insulin pump (external) (internal); J44.9 Chronic obstructive pulmonary disease, unspecified; J45.909 Unspecified asthma, uncomplicated; G40.909 Epilepsy, unspecified, not intractable, without status epilepticus; K21.9 Gastro-esophageal reflux disease without esophagitis; E78.5 Hyperlipidemia, unspecified; Z79.899 Other long term (current) drug therapy; Z88.2 Allergy status to sulfonamides; R94.31 Abnormal electrocardiogram [ECG] [EKG]
CPT/HCPCS: 36415; 70450; 71010; 80048; 80053; 81003; 81015; 82550; 82553; 83036; 83605; 83690; 83735; 83880; 84443; 84484; 85025; 85379; 85610; 85730; 86140; 87086; 93005; 94640; 94760; 96361; 96372; 96374; 99284; A9270-GY; G0378; J0696; J1650

== ENCOUNTER 2018-03-18 13:53 | Emergency (ER) | payer MEDICARE ==
--- OUTSIDE RECORDS SUMMARY | 2018-03-18 13:58 | XMS REPORT | Continuity of Care Document ---
:1945 External Reference #:[id number] Author Name Luis Aruna Care Team Providers Name Role Phone Sebastian Euceda MD Primary Care Physician Unavailable Payers Type Date Identification Numbers Payment Provider Subscriber Policy Number: [id number] [employer] Vivi Sabillon Group Number: [id number] [id number] PayID: [id number] [place] [address] Advance Directives Description No Information Available Problems Date Description Provider Status Onset: 09/01/2011 Coronary arteriosclerosis [place] Jacome M.D. Active Onset: 09/01/2011 Difficulty breathing Orlando Jacome M.D. Active Onset: 09/01/2011 Paroxysmal supraventricular Orlando Jacome M.D. Active tachycardia Onset: 09/01/2011 Benign essential hypertension Orlando Jacome M.D. Active Onset: 06/05/2013 Tachycardia Orlando Jacome M.D. Active Onset: 06/05/2013 Chest pain Orlando Jacome M.D. Active Onset: 06/05/2013 Type 1 diabetes mellitus Orlando Jacome M.D. Active uncontrolled Onset: 07/06/2013 Chronic diastolic heart failure [facility] Active Onset: 07/06/2013 Heart murmur [facility] Schedule Active Onset: 01/03/2015 Essential hypertension LYN Bey Active Family History Date Family Member(s) Problem(s) Comments : (age 73 Years) Father due to NC : (age 83 Years) Mother due to Cancer, Breast Mother due to Cancer, Bladder () Social History Type Date Description Comments Sex Unknown Marital Status Lives With Alone with 2 cats and a dog ETOH Use Denies alcohol use Tobacco Use Start: Unknown Patient has never smoked Recreational Drug Use Denies Drug Use Smoking Status Reviewed: 03/01/18 Patient has never smoked Exercise Type/Frequency Exercises regularly every other days - bicycle, TM, walking, some weights Allergies, Adverse Reactions, Alerts Date Description Reaction Status Severity Comments 02/17/2005 Sulfa Active hives Medications Medication Date Status Form Strength Qnty SIG Indications Ordering Provider Nitrolingual 07/13/ Active Solution 0.4mg/Spr 1unit as needed Radha Rosas 2018 ay s chest pain. Foster, if chest N.P. pain persists after 10 minutes, call 911. Crestor 01/25/ Active Tablets 5mg 90tab 1 by mouth [place] 2015 s every other F. day Michelle Jacome Furosemide 01/03/ Active Tablets 20mg 30tab 1 tab by [place] 2014 s mouth as F. needed only lola Jacome M.D. significant le edema Aspirin 06/29/ Active Tablets 81mg 1 PO qd [place] 2007 Carmenza Jacome M.D. Toprol XL 09/01/ Active Tablets ER 25mg 180ta 2 tablet by [place] 2005 24HR bs mouth daily Carmenza Jacome M.D. Prednisone 02/17/ Active Tablets 4mg 1 po qd [place] 2004 Carmenza Jacome M.D. Humalog 02/16/ Active Injection by insulin [place] Insulin 2005 pump Carmenza Jacome M.D. Singulair 02/16/ Active Tablets 10mg 30tab One qd At hs [place] 2004 s Carmenza Jacome M.D. Plavix 02/16/ Active Tablets 75mg 30tab 1 PO qd [place] 2004 roberto Jacome M.D. Alprazolam / Active Tablets 0.25mg 1/2-1 tab by Unknown 0000 mouth as needed Advair Diskus / Active Aerosol 500-50mcg 1 puff twice Unknown 0000 /Dose a day Omeprazole / Active Capsules DR 40mg 1 po qd Unknown 0000 Proair HFA / Active Aerosol 108(90Bas 2 puffs by Unknown 0000 e) mouth every mcg/Act 4 hours as needed Meclizine HCL 00/00/ Active Tablets 25mg 1-2 tablet Unknown 0000 every 8 hours as needed Theophylline 00/00/ Active Tablets ER 300mg take 1 Unknown ER 0000 12HR tablet by mouth daily Crestor 05/06/ Hx Tablets 5mg 30tab 1 by mouth [place] 2014 - three times F. 05/07/ a week Ayaz, 2014, Michelle Tuesday and Tuesday Univasc 04/18/ Hx Tablets 7.5mg 30tab 1/2 PO qpm Orlando 2014 - on odd days F. 04/25/ Macharu, 2014 M.D. Lasix 04/18/ Hx Tablets 20mg 30tab 1 by mouth [place] 2014 - every day as F. 04/25/ needed Ayaz, 2014 M.D. Atorvastatin 06/05/ Hx Tablets 10mg 45tab 1/2 by mouth [place] Calcium 2013 - daily F. 01/25/ (increased use201505/29/15) Jerome.Kylee Pravastatin 07/18/ Hx Tablets 10mg 45tab 1/2 po qd [place] Sodium 2012Arminda Jacome M.D. Pravastatin 02/02/ Hx Tablets 5mg 30tab 1 po qd [place] Sodium 2011 - . 02/02/ Amaliausemelodie, 2011 KimD. Pravastatin 02/02/ Hx Tablets 5mg 30tab 1 po qd [place] Sodium 2011 - . 07/18/ Ayaz, 2012 MArmindaD. Pravachol 10/11/ Hx Tablets 5mg 30tab 1/2 po tiw [place] 2011 - . 02/02/ Mausemelodie, 2011 M.D. Pravachol 10/06/ Hx Tablets 20mg 45tab 1/2 tablet [place] 2011 - po qhs . 10/11/ charu, 2011 KimDArminda Zocor 08/31/ Hx Tablets 10mg 30tab 1 po hs [place] 2011 - F. 10/06/ Amaliauser, 2011 KimDArminda Zocor 12/17/ Hx Tablets 20mg 1 po qhs [place] 2009 - . 08/31/ Mauser, 2011 M.D. Zocor 10/07/ Hx Tablets 20mg 100ta 1 po qhs [place] 2009 - bs F. 10/07/ Mauser, 2009 M.D. Zocor 10/07/ Hx Tablets 10mg 90tab 1 po hs [facility] 2009 - s F. 12/17/ Mauser, 2009 M.D. Lipitor 07/01/ Hx Tablets 10mg 1 po qhs [place] 2008 - F. 10/07/ Mauser, 2009 M.D. Lipitor 11/20/ Hx Tablets 20mg One Tab PO [place] 2007 - QHS F. 07/01/ Mauser, 2008 M.D. Lipitor 06/29/ Hx Tablets unknown 1 po qd [place] 2007 - F. 11/20/ Mauser, 2007 M.D. Simvastatin 06/20/ Hx Tablets 40mg 30tab 1 PO QHS [place] 2007 - s F. 06/29/ Mauser, 2007 M.D. KCL 12/09/ Hx Tablet 20Meq 30tab 1 PO qd [place] 2006 - s F. 07/01/ Mauser, 2008 M.D. Nitro-Dur 12/07/ Hx Patches 0.2mg/HR 90uni 1 patch qd [place] 2006 - 24HR ts F. 12/19/ Mauser, 2006 on in the M.D. am, off in the pm Tiazac 12/02/ Hx Capsules 180mg 90cap 1 po qhs [place] 2005 - s F. 03/10/ Mauser, 2016 M.D. Toprol XL 08/24/ Hx Tablets 12.5mg 1 po qd [place] 2005 - F. 09/01/ Mauser, 2005 M.D. Toprol XL 08/18/ Hx Tablets 50mg 30tab 1/2 po qd [place] 2005 - s F. 08/24/ Mauser, 2006 M.D. Nitrodisc 08/18/ Hx Patches 0.1mg/Lucia 90uni apply in am [place] 2005 - r ts remove at hs . 09/01/ Mauser, 2005 M.D. Zetia 02/17/ Hx Tablets 10mg 90tab 1 po qd [place] 2004 - s F. 06/20/ Mauser, 2008 M.D. Zocor 02/17/ Hx Tablets 20mg 30tab One Q hs [place] 2004 - s F. user, 2007 Jaime. Keppra 02/17/ Hx Tablets 500mg 1 po qd [place] 2004 - F. user, 2005 M.Edilson. Albuterol 02/17/ Hx Aerosol 90mcg/Dos 2 Puffs qid [place] Inhalation 2004 - e prn F. , 2017 M.Edilson. Nitrospray 02/17/ Hx Kinney 0.4mg 25uni as needed [place] 2004 - ts chest pain F. user, 2018 MShaneka Keppra 02/16/ Hx Tablets 500mg bid [place] 2004 - F. user, 2004 Michelle Univasc 15/ Hx Tablets 3.75 30tab 1 PO qpm [place] 2004 - s F. user, 2014 M.Edilson. Nexium 15/ Hx Capsules 40mg 30cap 1 PO qd [place] 2004 - s F. user, 2016 M.Kylee Lasix 15/ Hx Tablets 20mg 30tab 1 PO qd [place] 2004 - s F. user, 2014 MSaida. Advair Diskus 15/ Hx Inhaler 250mcg;50 1 puff bid [place] 2004 - mcg . user, 2014 Michelle Tiazac 15/ Hx Capsules 180mg 90cap 1 po qd [place] 2004 - s F. user, 2005 Michelle Aspirin 15/ Hx Tablets 325mg 1 PO qd [place] Enteric Coated 2004 - F. user, 2007 Michelle Prednisone /15/ Hx Tablets 3mg 1 po qd [place] 2004 - F. user, 2004 M.Edilson. Theophylline /15/ Hx Capsules 400mg 1 poqpm [place] 2004 - F. user, 2017 Michelle Lescol 15/ Hx Capsules 40mg one qhs [place] 2004 - F. 02/16/ Ayaz 2004 M.D. Vytorin 02/16/ Hx Tablets 10mg;20 90tab 1 po qd [place] 2005 - mg s F. 02/17/ Ayaz 2004 M.D. Atorvastatin / Hx Tablets 10mg 90tab 1 po qd Other Calcium 0000 - s Ordering 2013 Furosemide 00/ Hx Tablets 1 4xweek Unknown 0000 - 2014 Co Q10 Maximum / Hx 200mg 1 tablet Unknown Strength 0000 - daily 2017 Cartia XT / Hx Caps ER 180mg 1 po qd Unknown 0000 - 24HR 2017 Montelukast / Hx Tablets 10mg 1 by mouth Unknown Sodium 0000 - every day prn 2017 Medications Administered in Office Medication Date Status Form Strength Qnty SIG Indications Ordering Provider Inj, Administered Injection Bunny Bains Regadenoson, 016 Post, 0.1 MG M.D., FACC, FASNC Inj, Administered Injection Orlando F. Regadenoson, 016 Mauser, 0.1 MG M.D. Technetium TC Administered Injection Bunny Bains 99M 016 Sincere Tetrofosmin, MSaida., FACC, Per Unit Dose FASNC Up To 40 Millicuries Technetium TC Administered Injection Orlando F. 99M 016 Mauser, Tetrofosmin, M.D. Per Unit Dose Up To 40 Millicuries Immunizations Description No Information Available Vital Signs Date Vital Result Comment 03/01/2018 8:56am Height 65 inches 5'5" Weight 170.00 lb Heart Rate 84 /min left radial, regular BP Systolic Sitting 125 mmHg right arm BP Diastolic Sitting 58 mmHg right arm BMI (Body Mass Index) 28.3 kg/m2 Ejection Fraction 60-65% echo 06/27/17 07/13/2017 11:39am Height 65 inches 5'5" Weight 184.00 lb w/shoes Heart Rate 80 /min BP Systolic Sitting 126 mmHg L/A reg cuff BP Diastolic Sitting 78 mmHg L/A reg cuff BMI (Body Mass Index) 30.6 kg/m2 Ejection Fraction 60-65% echo 06/27/2017 06/01/2017 1:40pm Height 65 inches 5'5" Weight 183.25 lb Heart Rate 90 /min BP Systolic Sitting 130 mmHg LA, reg cuff BP Diastolic Sitting 72 mmHg LA, reg cuff BMI (Body Mass Index) 30.5 kg/m2 Ejection Fraction 60%-65% echo 12/05/14 02/16/2017 1:06pm Height 65 inches 5'5" Weight 186.25 lb with shoes Heart Rate 86 /min BP Systolic Sitting 140 mmHg LA reg cuff BP Diastolic Sitting 76 mmHg LA reg cuff BP Systolic Standing 128 mmHg la repeat sit BP Diastolic Standing 128 mmHg la repeat sit BMI (Body Mass Index) 31.0 kg/m2 Ejection Fraction 59% NLM 05/06/15 03/18/2016 1:05pm Height 65 inches 5'5" Weight 189.00 lb Heart Rate 96 /min BP Systolic Sitting 118 mmHg LA large cuff BP Diastolic Sitting 64 mmHg LA large cuff BP Systolic Standing 118 mmHg LA BP Diastolic Standing 64 mmHg LA Respiratory Rate 16 /min BMI (Body Mass Index) 31.4 kg/m2 Ejection Fraction 60-65% 12/05/14 01/26/2016 8:17am Height 65 inches 5'5" Weight 189.25 lb with shoes Heart Rate 88 /min BP Systolic Sitting 128 mmHg LA lrg cuff BP Diastolic Sitting 68 mmHg LA lrg cuff BMI (Body Mass Index) 31.5 kg/m2 Ejection Fraction 59% NLM 05/06/15 01/03/2015 1:14pm Height 65 inches 5'5" Weight 192.00 lb no shoes Heart Rate 90 /min BP Systolic Sitting 140 mmHg LA, reg cuff BP Diastolic Sitting 76 mmHg LA, reg cuff BP Systolic Standing 138 mmHg LA BP Diastolic Standing 78 mmHg LA Respiratory Rate 18 /min BMI (Body Mass Index) 31.9 kg/m2 Ejection Fraction 60-65% 12/05/14 12/04/2014 2:11pm Height 65 inches 5'5" Weight 190.00 lb w/ shoes Heart Rate 92 /min BP Systolic Sitting 142 mmHg Ra, reg BP Diastolic Sitting 76 mmHg Ra, reg BMI (Body Mass Index) 31.6 kg/m2 12/04/2014 2:00pm Height 65 inches 5'5" Ejection Fraction 60-65% as of 07/06/13 echo 06/10/2014 10:54am Height 65 inches 5'5" Weight 185.75 lb Heart Rate 86 /min BP Systolic Sitting 128 mmHg left arm, large cuff BP Diastolic Sitting 74 mmHg left arm, large cuff BP Systolic Standing 120 mmHg left arm, large cuff BP Diastolic Standing 72 mmHg left arm, large cuff Respiratory Rate 14 /min BMI (Body Mass Index) 30.9 kg/m2 04/18/2014 1:58pm Height 65 inches 5'5" Weight 187.75 lb wiithout shoes Heart Rate 90 /min BP Systolic Sitting 156 mmHg LA reg cuff BP Diastolic Sitting 80 mmHg LA reg cuff BP Systolic Recheck 142 mmHg La reg cuff BP Diastolic Recheck 82 mmHg La reg cuff Respiratory Rate 18 /min BMI (Body Mass Index) 31.2 kg/m2 06/05/2013 1:17pm Height 65 inches 5'5" Weight 188.00 lb Heart Rate 96 /min BP Systolic Sitting 122 mmHg BP Diastolic Sitting 58 mmHg BMI (Body Mass Index) 31.3 kg/m2 08/10/2012 9:55am Height 65 inches 5'5" Weight 188.00 lb Heart Rate 80 /min BP Systolic 120 mmHg BP Diastolic 64 mmHg BMI (Body Mass Index) 31.3 kg/m2 02/03/2012 8:37am Height 65 inches 5'5" Weight 187.00 lb Heart Rate 82 /min BP Systolic Sitting 138 mmHg BP Diastolic Sitting 78 mmHg BMI (Body Mass Index) 31.1 kg/m2 09/01/2011 10:54am Height 65 inches 5'5" Weight 186.00 lb Heart Rate 82 /min BP Systolic 118 mmHg BP Diastolic 70 mmHg Respiratory Rate 18 /min BMI (Body Mass Index) 30.9 kg/m2 11/30/2010 2:42pm Height 65 inches 5'5" Weight 188.00 lb Heart Rate 100 /min BP Systolic Sitting 130 mmHg BP Diastolic Sitting 60 mmHg BMI (Body Mass Index) 31.3 kg/m2 06/12/2010 1:47pm Height 65 inches 5'5" Weight 175.00 lb Heart Rate 93 /min BP Systolic Sitting 130 mmHg BP Diastolic Sitting 70 mmHg BMI (Body Mass Index) 29.1 kg/m2 09/22/2009 3:07pm Height 65 inches 5'5" Weight 180.00 lb Heart Rate 82 /min BP Systolic Sitting 138 mmHg BP Diastolic Sitting 68 mmHg BP Systolic Recheck 140 mmHg BP Diastolic Recheck 68 mmHg BMI (Body Mass Index) 30.0 kg/m2 01/01/2009 2:14pm Weight 180.00 lb Heart Rate 88 /min BP Systolic Sitting 130 mmHg BP Diastolic Sitting 60 mmHg Respiratory Rate 14 /min 07/01/2008 1:29pm Height 65 inches 5'5" Weight 181.00 lb Heart Rate 94 /min BP Systolic Sitting 138 mmHg BP Diastolic Sitting 72 mmHg BP Systolic Standing 122 mmHg BP Diastolic Standing 64 mmHg BMI (Body Mass Index) 30.1 kg/m2 72 06/30/2007 9:23am Height 65 inches 5'5" Weight 181.00 lb Heart Rate 80 /min BP Systolic Sitting 120 mmHg L BP Diastolic Sitting 64 mmHg L BP Systolic Standing 112 mmHg L BP Diastolic Standing 60 mmHg L BMI (Body Mass Index) 30.1 kg/m2 12/23/2006 9:58am Height 65 inches 5'5" Heart Rate 80 /min reg BP Systolic Sitting 130 mmHg BP Diastolic Sitting 70 mmHg 12/07/2006 3:31pm Height 65 inches 5'5" Weight 179.75 lb Heart Rate 87 /min BP Systolic Sitting 110 mmHg BP Diastolic Sitting 70 mmHg BP Systolic Standing 114 mmHg BP Diastolic Standing 70 mmHg BMI (Body Mass Index) 29.9 kg/m2 06/02/2006 2:04pm Height 65 inches 5'5" Heart Rate 90 /min BP Systolic Sitting 150 mmHg R BP Diastolic Sitting 70 mmHg R BP Systolic Standing 144 mmHg R BP Diastolic Standing 70 mmHg R 12/02/2005 2:01pm Height 65 inches 5'5" Weight 183.00 lb Heart Rate 85 /min BP Systolic Sitting 100 mmHg BP Diastolic Sitting 70 mmHg BP Systolic Standing 98 mmHg BP Diastolic Standing 74 mmHg BMI (Body Mass Index) 30.4 kg/m2 09/01/2005 9:24am Height 65 inches 5'5" Weight 180.00 lb Heart Rate 86 /min reg BP Systolic Sitting 102 mmHg BP Diastolic Sitting 60 mmHg BP Systolic Standing 110 mmHg BP Diastolic Standing 64 mmHg BMI (Body Mass Index) 30.0 kg/m2 08/18/2005 11:20am Height 65 inches 5'5" Weight 180.00 lb Heart Rate 92 /min BP Systolic Sitting 160 mmHg R BP Diastolic Sitting 60 mmHg R BP Systolic Standing 160 mmHg R BP Diastolic Standing 60 mmHg R BMI (Body Mass Index) 30.0 kg/m2 02/17/2005 9:42am Height 65 inches 5'5" Weight 178.00 lb Heart Rate 99 /min BP Systolic Sitting 114 mmHg left arm, right arm 120/60 BP Diastolic Sitting 60 mmHg left arm, right arm 120/60 BP Systolic Standing 118 mmHg BP Diastolic Standing 60 mmHg O2 % BldC Oximetry 99 % BMI (Body Mass Index) 29.6 kg/m2 Results Test Date Facility Test Result H/L Range Note Comp Metabolic Panel 01/20/2018 [facility] Sodium 142 mmol/L N 135-[address] [place] [address] [phone] Potassium 4.1 mmol/L N 3.5-5.0 Chloride 107 mmol/L N 101-111 Co2 Carbon Dioxide 26 mmol/L N 22-32 Anion Gap 9 mmol/L N 2-11 Glucose 126 mg/dL High 70-100 Blood Urea Nitrogen 11 mg/dL N 6-24 Creatinine 0.62 mg/dL N 0.51-0.95 BUN/Creatinine Ratio 17.7 N 8-20 Calcium 8.9 mg/dL N 8.6-10.3 Total Protein 5.9 g/dL Low 6.4-8.9 Albumin 3.6 g/dL N 3.2-5.2 Globulin 2.3 g/dL N 2-4 Albumin/Globulin Ratio 1.6 N 1-3 Total Bilirubin 0.50 mg/dL N 0.2-1.0 Alkaline Phosphatase 61 U/L N 34-104 Alt 9 U/L N 7-52 Ast 13 U/L N 13-39 Egfr Non- 94.6 >60 Egfr 114.5 >60 1 Lipid Profile 01/20/2018 [facility] Triglycerides 89 mg/dL 2 (Trig/Chol/HDL) [address] [place] [address] [phone] Cholesterol 156 mg/dL 3 HDL Cholesterol 57.1 mg/dL 4 LDL Cholesterol 81 mg/dL 5 Liver Function 01/20/2018 [facility] Direct 0.10 mg/dL N 0.03- 0.18 Panel [address] [place] [address] [phone] Indirect Bilirubin 0.4 mg/dL N 0.3-1.0 Laboratory test 01/20/2018 [facility] Vitamin B12 441 pg/mL N 180-914 [address] [place] [address] [phone] Urine 01/20/2018 [facility] Ur Microalbumin 48.[address] (mg/L) [place] [address] [phone] Urine Creatinine 131.07 mg/dL Urine Microalbumin/Creatinine 36.6 High <31 Laboratory test 06/10/2017 [facility] Point of Care 107 mg/dL High 70-[address] [place] [address] [phone] Lipid Panel - 05/16/2017 [facility] Creatine 37 U/L N 10-[address] Kinase(CK) [place] [address] [phone] Comp Metabolic 05/16/2017 [facility] Sodium 141 mmol/L N 133- [address] [place] [address] [phone] Potassium 3.8 mmol/L N 3.5-5.0 Chloride 108 mmol/L N 101-111 Co2 Carbon Dioxide 28 mmol/L N 22-32 Anion Gap 5 mmol/L N 2-11 Glucose 126 mg/dL High 70-100 Blood Urea Nitrogen 11 mg/dL N 6-24 Creatinine 0.66 mg/dL N 0.51-0.95 BUN/Creatinine Ratio 16.7 N 8-20 Calcium 8.8 mg/dL N 8.6-10.3 Total Protein 5.9 g/dL Low 6.4-8.9 Albumin 3.6 g/dL N 3.2-5.2 Globulin 2.3 g/dL N 2-4 Albumin/Globulin Ratio 1.6 N 1-3 Total Bilirubin 0.50 mg/dL N 0.2-1.0 Alkaline Phosphatase 50 U/L N 34-104 Alt 9 U/L N 7-52 Ast 14 U/L N 13-39 Egfr Non- 88.0 >60 Egfr 113.2 >60 9 Lipid Profile 05/16/2017 [facility] Triglycerides 93 mg/dL 10 (Trig/Chol/HDL) [address] [place] [address] [phone] Cholesterol 152 mg/dL 11 HDL Cholesterol 56.1 mg/dL 12 LDL Cholesterol 77 mg/dL 13 Lipid Panel - 05/16/2017 [facility] Creatine 37 U/L N 10-223 [address] Kinase(CK) [place] [address] [phone] Comp Metabolic 05/16/2017 [facility] Sodium 141 N 133-[address] mmol/[place] [address] [phone] Potassium 3.8 mmol/L N 3.5-5.0 Chloride 108 mmol/L N 101-111 Co2 Carbon Dioxide 28 mmol/L N 22-32 Anion Gap 5 mmol/L N 2-11 Glucose 126 mg/dL High 70-100 Blood Urea Nitrogen 11 mg/dL N 6-24 Creatinine 0.66 mg/dL N 0.51-0.95 BUN/Creatinine Ratio 16.7 N 8-20 Calcium 8.8 mg/dL N 8.6-10.3 Total Protein 5.9 g/dL Low 6.4-8.9 Albumin 3.6 g/dL N 3.2-5.2 Globulin 2.3 g/dL N 2-4 Albumin/Globulin Ratio 1.6 N 1-3 Total Bilirubin 0.50 mg/dL N 0.2-1.0 Alkaline Phosphatase 50 U/L N 34-104 Alt 9 U/L N 7-52 Ast 14 U/L N 13-39 Egfr Non- 88.0 >60 Egfr 113.2 >60 15 Lipid Profile 05/16/2017 [facility] Triglycerides 93 mg/dL 16 (Trig/Chol/HDL) [address] [place] [address] [phone] Cholesterol 152 mg/dL 17 HDL Cholesterol 56.1 mg/dL 18 LDL Cholesterol 77 mg/dL 19 Urine Microalbumin 02/14/2017 [facility] Ur Microalbumin 41.8 mg /L Random [address] (mg/L) [place] [address] [phone] Urine Creatinine 132.42 mg/dL Urine Microalbumin/Creatinine 31.5 ug/mg High <31 Comp Metabolic Panel 02/14/2017 [facility] Sodium 140 mmol/L N 133-[address] [place], [place] [id number] [phone] Potassium 4.2 mmol/L N 3.5-5.0 Chloride 105 mmol/L N 101-111 Co2 Carbon Dioxide 29 mmol/L N 22-32 Anion Gap 6 mmol/L N 2-11 Glucose 122 mg/dL High 70-100 Blood Urea Nitrogen 12 mg/dL N 6-24 Creatinine 0.74 mg/dL N 0.51-0.95 BUN/Creatinine Ratio 16.2 N 8-20 Calcium 9.1 mg/dL N 8.6-10.3 Total Protein 6.1 g/dL Low 6.4-8.9 Albumin 3.7 g/dL N 3.2-5.2 Globulin 2.4 g/dL N 2-4 Albumin/Globulin Ratio 1.5 N 1-3 Total Bilirubin 0.50 mg/dL N 0.2-1.0 Alkaline Phosphatase 51 U/L N 34-104 Alt 13 U/L N 7-52 Ast 11 U/L Low 13-39 Egfr Non- 77.4 >60 Egfr 99.5 >60 20 Lipid Profile 02/14/2017 [facility] Triglycerides 92 mg/dL 21 (Trig/Chol/HDL) [address] [place] [address] [phone] Cholesterol 144 mg/dL 22 HDL Cholesterol 60.8 mg/dL 23 LDL Cholesterol 65 mg/dL 24 Liver Function 02/14/2017 [facility] Direct 0.10 mg/dL N 0.03- 0.[address] [place] [address] [phone] Indirect Bilirubin 0.4 mg/dL N 0.3-1.0 Laboratory test 02/14/2017 [facility] Vitamin B12 412 pg/mL N 180-914 [address] [place] [address] [phone] Lipid Panel - 03/09/2016 [facility] Creatine 46 U/L N 10-[address] Kinase(CK) [place] [address] [phone] CMP Panel 03/09/2016 [facility] Sodium 139 mmol/L N 133-[address] [place] [address] [phone] Potassium 3.9 mmol/L N 3.5-5.0 Chloride 105 mmol/L N 101-111 Co2 Carbon Dioxide 29 mmol/L N 22-32 Anion Gap 5 mmol/L N 2-11 Glucose 122 mg/dL High 70-100 Blood Urea Nitrogen 13 mg/dL N 6-24 Creatinine 0.73 mg/dL N 0.51-0.95 BUN/Creatinine Ratio 17.8 N 8-20 Calcium 8.9 mg/dL N 8.6-10.3 Total Protein 6.0 g/dL Low 6.4-8.9 Albumin 3.6 g/dL N 3.2-5.2 Globulin 2.4 g/dL N 2-4 Albumin/Globulin Ratio 1.5 N 1-3 Total Bilirubin 0.50 mg/dL N 0.2-1.0 Alkaline Phosphatase 61 U/L N 34-104 Alt 13 U/L N 7-52 Ast 12 U/L Low 13-39 Egfr Non- 78.8 N >60 Egfr 101.4 N >60 26 Lipid Panel 03/09/2016 [facility] Triglycerides 59 mg/dL N [address] [place] [address] [phone] Cholesterol 138 mg/dL N 28 HDL Cholesterol 65.8 mg/dL N 29 LDL Cholesterol 60 mg/dL N 30 CBC W/Auto 03/09/2016 [facility] White Blood 9.1 10^3/uL N 3.5 -10.[address] [place] [address] [phone] Red Blood Count 4.79 10^6/uL N 4.0-5.4 Hemoglobin 13.4 g/dL N 12.0-16.0 Hematocrit 41 % N 35-47 Mean Corpuscular Volume 86 fL N 80-97 Mean Corpuscular Hemoglobin 28 pg N 27-31 Mean Corpuscular HGB Conc 33 g/dL N 31-36 Red Cell Distribution Width 15 % N 10.5-15 Platelet Count 301 10^3/uL N 150-450 Mean Platelet Volume 8 um3 N 7.4-10.4 Abs Neutrophils 6.0 10^3/uL N 1.5-7.7 Abs Lymphocytes 1.5 10^3/uL N 1.0-4.8 Abs Monocytes 0.9 10^3/uL High 0-0.8 Abs Eosinophils 0.6 10^3/uL N 0-0.6 Abs Basophils 0.1 10^3/uL N 0-0.2 Abs Nucleated RBC 0 10^3/uL N Granulocyte % 66.0 % N 38-83 Lymphocyte % 16.7 % Low 25-47 Monocyte % 9.8 % High 1-9 Eosinophil % 6.3 % High 0-6 Basophil % 1.2 % N 0-2 Nucleated Red Blood Cells % 0 N Lipid Panel - 07/02/2015 [facility] Creatine 74 U/L N 10-223 [address] Kinase(CK) [place] [address] [phone] Comp Metabolic 07/02/2015 [facility] Sodium 139 N 133-[address] mmol/[place] [address] [phone] Potassium 3.9 mmol/L N 3.5-5.0 Chloride 104 mmol/L N 101-111 Co2 Carbon Dioxide 29 mmol/L N 22-32 Anion Gap 6 mmol/L N 2-11 Glucose 52 mg/dL Low 70-100 Blood Urea Nitrogen 15 mg/dL N 6-24 Creatinine 0.72 mg/dL N 0.51-0.95 BUN/Creatinine Ratio 20.8 High 8-20 Calcium 9.1 mg/dL N 8.6-10.3 Total Protein 6.0 g/dL Low 6.4-8.9 Albumin 3.7 g/dL N 3.2-5.2 Globulin 2.3 g/dL N 2-4 Albumin/Globulin Ratio 1.6 N 1-3 Total Bilirubin 0.40 mg/dL N 0.2-1.0 Alkaline Phosphatase 61 U/L N 34-104 Alt 11 U/L N 7-52 Ast 11 U/L Low 13-39 Egfr Non- 80.1 N >60 Egfr 103.0 N >60 32 Lipid Profile 07/02/2015 [facility] Triglycerides 101 mg/dL N 33 (Trig/Chol/HDL) [address] [place] [address] [phone] Cholesterol 158 mg/dL N 34 HDL Cholesterol 61.9 mg/dL N 35 LDL Cholesterol 76 mg/dL N 36 CBC Auto Diff 12/04/2014 [facility] White Blood 10.7 10^3/uL N 4.8-10.[address] [place] [address] [phone] Red Blood Count 4.90 10^6/uL N 4.0-5.4 Hemoglobin 13.5 g/dL N 12.0-16.0 Hematocrit 42 % N 35-47 Mean Corpuscular Volume 86 fL N 80-97 Mean Corpuscular Hemoglobin 28 pg N 27-31 Mean Corpuscular HGB Conc 32 g/dL N 31-36 Red Cell Distribution Width 15 % N 10.5-15 Platelet Count 291 10^3/uL N 150-450 Mean Platelet Volume 8 um3 N 7.4-10.4 Abs Neutrophils 9.0 10^3/uL High 1.5-7.7 Abs Lymphocytes 0.9 10^3/uL Low 1.0-4.8 Abs Monocytes 0.7 10^3/uL N 0-0.8 Abs Eosinophils 0.1 10^3/uL N 0-0.6 Abs Basophils 0.1 10^3/uL N 0-0.2 Abs Nucleated RBC 0.01 10^3/uL N Granulocyte % 83.7 % High 38-83 Lymphocyte % 8.4 % Low 25-47 Monocyte % 6.4 % N 1-9 Eosinophil % 1.0 % N 0-6 Basophil % 0.5 % N 0-2 Nucleated Red Blood Cells % 0 N Basic Metabolic Panel 12/04/2014 [facility] Sodium 136 mmol/L N 133-145 [address] [place] [address] [phone] Potassium 4.1 mmol/L N 3.5-5.0 Chloride 103 mmol/L N 101-111 Co2 Carbon Dioxide 27 mmol/L N 22-32 Anion Gap 6 mmol/L N 2-11 Glucose 303 mg/dL High 70-100 Blood Urea Nitrogen 15 mg/dL N 6-24 Creatinine 0.79 mg/dL N 0.51-0.95 BUN/Creatinine Ratio 19.0 N 8-20 Calcium 9.1 mg/dL N 8.6-10.3 Egfr Non- 72.2 N >60 Egfr 92.8 N >60 37 Laboratory test 12/04/2014 [facility] Troponin-I (TnI) 0.00 ng/ mL N <0.03 38 finding [address] [place] [address] [phone] Magnesium 2.2 mg/dL N 1.9-2.7 Theophylline 6.1 g/mL Low 10-20.0 Lipid Profile 11/12/2014 [facility] Triglycerides 76 mg/dL N 39 (Trig/Chol/HDL) [address] [place] [address] [phone] Cholesterol 164 mg/dL N 40 HDL Cholesterol 60.2 mg/dL N 41 LDL Cholesterol 89 mg/dL N 42 Laboratory test 11/12/2014 [facility] Creatine 52 U/L N 10- [address] Kinase(CK) [place] [address] [phone] Comp Metabolic 11/12/2014 [facility] Sodium 142 N 133-[address] mmol/[place] [address] [phone] Potassium 3.9 mmol/L N 3.5-5.0 Chloride 106 mmol/L N 101-111 Co2 Carbon Dioxide 29 mmol/L N 22-32 Anion Gap 7 mmol/L N 2-11 Glucose 147 mg/dL High 70-100 Blood Urea Nitrogen 20 mg/dL N 6-24 Creatinine 0.75 mg/dL N 0.51-0.95 BUN/Creatinine Ratio 26.7 High 8-20 Calcium 8.9 mg/dL N 8.6-10.3 Total Protein 6.2 g/dL Low 6.4-8.9 Albumin 3.8 g/dL N 3.2-5.2 Globulin 2.4 g/dL N 2-4 Albumin/Globulin Ratio 1.6 N 1-3 Total Bilirubin 0.40 mg/dL N 0.2-1.0 Alkaline Phosphatase 58 U/L N 34-104 Alt 12 U/L N 7-52 Ast 11 U/L Low 13-39 Egfr Non- 76.6 N >60 Egfr 98.5 N >60 43 CBC Auto Diff 04/18/2014 White Blood Count 10.2 10^3/uL N 4.8-10.8 44 Red Blood Count 4.76 10^6/uL N 4.0-5.4 Hemoglobin 13.3 g/dL N 12.0-16.0 Hematocrit 41 % N 35-47 Mean Corpuscular Volume 86 fL N 80-97 Mean Corpuscular Hemoglobin 28 pg N 27-31 Mean Corpuscular HGB Conc 33 g/dL N 31-36 Red Cell Distribution Width 15 % N 10.5-15 Platelet Count 321 10^3/uL N 150-450 Mean Platelet Volume 8 um3 N 7.4-10.4 Abs Neutrophils 7.6 10^3/uL N 1.5-7.7 Abs Lymphocytes 1.4 10^3/uL N 1.0-4.8 Abs Monocytes 0.6 10^3/uL N 0-0.8 Abs Eosinophils 0.4 10^3/uL N 0-0.6 Abs Basophils 0.1 10^3/uL N 0-0.2 Abs Nucleated RBC 0.01 10^3/uL N Granulocyte % 74.6 % N 38-83 Lymphocyte % 13.9 % Low 25-47 Monocyte % 6.2 % N 1-9 Eosinophil % 4.2 % N 0-6 Basophil % 1.1 % N 0-2 Nucleated Red Blood Cells % 0.1 N Lipid Panel - [facility] 04/18/2014 Creatine Kinase 53 U/L N 10-223 45 Comp Metabolic Panel 04/18/2014 Sodium 139 mmol/L N 133-145 Potassium 3.7 mmol/L N 3.5-5.0 Chloride 104 mmol/L N 101-111 Co2 Carbon Dioxide 28 mmol/L N 22-32 Anion Gap 7 mmol/L N 2-11 Glucose 145 mg/dL High 70-100 Blood Urea Nitrogen 15 mg/dL N 6-24 Creatinine 0.73 mg/dL N 0.51-0.95 BUN/Creatinine Ratio 20.5 High 8-20 Calcium 8.8 mg/dL N 8.6-10.3 Total Protein 6.3 g/dL Low 6.4-8.9 Albumin 4.0 g/dL N 3.2-5.2 Globulin 2.3 g/dL N 2-4 Albumin/Globulin Ratio 1.7 N 1-3 Total Bilirubin 0.50 mg/dL N 0.2-1.0 Alkaline Phosphatase 55 U/L N 34-104 Alt 10 U/L N 7-52 Ast 11 U/L Low 13-39 Egfr Non- 79.3 N >60 Egfr 102.0 N >60 46 Lipid Profile (Trig/Chol/HDL) 04/18/2014 Triglycerides 81 mg/dL N 47 Cholesterol 146 mg/dL N 48 HDL Cholesterol 59.1 mg/dL N 49 LDL Cholesterol 71 mg/dL N 50 Laboratory test 04/18/2014 Theophylline 10.9 g/mL N 10-20.0 51 finding Urinalysis 07/29/2013 [facility] Urine Color Yellow N [address] [place] [address] [phone] Urine Appearance Clear N Urine Specific [place] 1.020 N 1.010-1.030 Urine Esterase Negative N Negative Urine Nitrate Negative N Negative Urine Urobilinogen Negative E.U./dL N Negative Urine Protein Trace mg/dL Abnormal Negative Urine pH 7.5 N 5-9 Urine Blood Negative N Negative Urine Ketones Trace mg/dL Abnormal Negative Urine Bilirubin Negative N Negative Urine Glucose Negative mg/dL N Negative Urine Culture And 07/29/2013 [facility] Urine (SEE NOTE) [address] [place] [address] [phone] Blood Culture 07/28/2013 [facility] Blood (SEE NOTE) [address] [place] [address] [phone] CBC Auto Diff 07/28/2013 [facility] White Blood 11.4 High 4.8- [address] Count 10^3/uL 0.8 [place] [address] [phone] Red Blood Count 5.24 10^6/uL N 4.0-5.4 Hemoglobin 14.7 g/dL N 12.0-16.0 Hematocrit 44 % N 35-47 Mean Corpuscular Volume 83 fL N 80-97 Mean Corpuscular Hemoglobin 28 pg N 27-31 Mean Corpuscular HGB Conc 34 g/dL N 31-36 Red Cell Distribution Width 16 % High 10.5-15 Platelet Count 331 10^3/uL N 150-450 Mean Platelet Volume 8 um3 N 7.4-10.4 Abs Neutrophils 10.2 10^3/uL High 1.5-7.7 Abs Lymphocytes 0.5 10^3/uL Low 1.0-4.8 Abs Monocytes 0.6 10^3/uL N 0-0.8 Abs Eosinophils 0 10^3/uL N 0-0.6 Abs Basophils 0 10^3/uL N 0-0.2 Abs Nucleated RBC 0 10^3/uL N Granulocyte % 89.5 % High 38-83 Lymphocyte % 4.7 % Low 25-47 Monocyte % 5.1 % N 1-9 Eosinophil % 0.3 % N 0-6 Basophil % 0.4 % N 0-2 Nucleated Red Blood Cells % 0 N Inr/Protime 07/28/2013 [facility] Inr 1.14 High 0.85-1.[address] [place] [address] [phone] Laboratory test 07/28/2013 [facility] Activated 31.9 N 24.0- 36.[address] [place] [address] Thrombo Time [phone] Lactic Acid 1.1 mmol/L N 0.5-2.2 Comp Metabolic Panel 07/28/2013 [facility] Sodium 139 mmol/L N 133-[address] [place] [address] [phone] Potassium 4.0 mmol/L N 3.7-5.6 Chloride 106 mmol/L N 101-111 Co2 Carbon Dioxide 24 mmol/L N 22-32 Anion Gap 9 mmol/L N 2-11 Glucose 94 mg/dL N 70-100 Blood Urea Nitrogen 21 mg/dL N 6-24 Creatinine 0.99 mg/dL High 0.51-0.95 BUN/Creatinine Ratio 21.2 High 8-20 Calcium 8.5 mg/dL Low 8.6-10.3 Total Protein 6.2 g/dL Low 6.4-8.9 Albumin 3.6 g/dL N 3.2-5.2 Globulin 2.6 g/dL N 2-4 Albumin/Globulin Ratio 1.4 N 1-3 Total Bilirubin 0.40 mg/dL N 0.2-1.0 Alkaline Phosphatase 54 U/L N 34-104 Alt 7 U/L N 7-52 Ast 11 U/L Low 13-39 Egfr Non- 55.8 N >60 Egfr 71.7 N >60 54 Laboratory test 07/28/2013 [facility] Blood Culture (SEE NOTE) [address] [place] [address] [phone] Lipid Profile 05/31/2013 [facility] Triglycerides 87 mg/dL 56 (Trig/Chol/HDL) [address] [place] [address] [phone] Cholesterol 150 mg/dL 57 HDL Cholesterol 61.0 mg/dL 58 LDL Cholesterol 72 mg/dL 59 Laboratory test 05/31/2013 [facility] Alt 11 U/L 7-[address] [place] [address] [phone] Basic Metabolic Panel 04/09/2013 [facility] Sodium 138 mmol/L 133-145 [address] [place] [address] [phone] Potassium 4.0 mmol/L 3.5-5.0 Chloride 102 mmol/L 101-111 Co2 Carbon Dioxide 28.0 mmol/L 22-32 Anion Gap 8.0 mmol/L 2-11 Glucose 70 mg/dL 70-100 Blood Urea Nitrogen 16 mg/dL 6-24 Creatinine 0.70 mg/dL 0.50-1.40 BUN/Creatinine Ratio 22.9 High 8-20 Calcium 9.1 mg/dL 8.1-9.9 Egfr Non- 83.5 >60 Egfr 107.3 >60 61 Lipid Profile 04/09/2013 [facility] Triglycerides 90 mg/dL 40 -200 (Trig/Chol/HDL) [address] [place] [address] [phone] Cholesterol 180 mg/dL Less than 200 HDL Cholesterol 67 mg/dL High 40-60 62 Cholesterol/HDL Ratio 2.7 Average 1-4.44 LDL Cholesterol 95.0 Less Than 100 63 Laboratory test 04/09/2013 [facility] Alt 11 U/L Low 14-54 64 finding [address] [place] [address] [phone] Basic Metabolic 08/21/2012 [facility] Sodium 138 mmol/L 133- 145 Panel [address] [place] [address] [phone] Potassium 4.1 mmol/L 3.5-5.0 Chloride 103 mmol/L 101-111 Co2 Carbon Dioxide 28.0 mmol/L 22-32 Anion Gap 7.0 mmol/L 2-11 Glucose 169 mg/dL High 70-100 Blood Urea Nitrogen 21 mg/dL 6-24 Creatinine 0.80 mg/dL 0.50-1.40 BUN/Creatinine Ratio 26.3 High 8-20 Calcium 9.5 mg/dL 8.1-9.9 Egfr Non- 71.5 >60 Egfr 92.0 >60 65 Laboratory 08/21/2012 [facility] TSH (Thyroid 1.51 0.34-5.60 test finding 101 [facility] Stimulating miu/mL [place], [place] [id number] Lfqx) [phone] CBC Auto Diff 08/21/2012 [facility] White Blood 12.3 High 4.8- 10.[address] Count 10^3/[place] [address] [phone] Red Blood Count 4.47 10^6/uL 4.0-5.4 Hemoglobin 12.7 g/dL 12.0-16.0 Hematocrit 39 % 35-47 Mean Corpuscular Volume 86 fL 80-97 Mean Corpuscular Hemoglobin 28 pg 27-31 Mean Corpuscular HGB Conc 33 g/dL 31-36 Red Cell Distribution Width 15 % 10.5-15 Platelet Count 307 10^3/uL 150-450 Mean Platelet Volume 8 um3 7.4-10.4 Abs Neutrophils 10.2 10^3/uL High 1.5-7.7 Abs Lymphocytes 1.1 10^3/uL 1.0-4.8 Abs Monocytes 0.8 10^3/uL 0-0.8 Abs Eosinophils 0.1 10^3/uL 0-0.6 Abs Basophils 0.1 10^3/uL 0-0.2 Abs Nucleated RBC 0.01 10^3/uL Granulocyte % 83.2 % High 38-83 Lymphocyte % 8.6 % Low 25-47 Monocyte % 6.5 % 1-9 Eosinophil % 1.1 % 0-6 Basophil % 0.6 % 0-2 Nucleated Red Blood Cells % 0.1 Laboratory 08/21/2012 [facility] Hepatitis C Nonreactive Nonreactive test finding 101 [facility] [address] [phone] Comp Metabolic 04/19/2012 [facility] Sodium 137 mmol/L 133- 145 Panel [address] [place] [address] [phone] Potassium 3.9 mmol/L 3.5-5.0 Chloride 107 mmol/L 101-111 Co2 Carbon Dioxide 25.0 mmol/L 22-32 Anion Gap 5.0 mmol/L 2-11 Glucose 85 mg/dL 70-100 Blood Urea Nitrogen 18 mg/dL 6-24 Creatinine 0.80 mg/dL 0.50-1.40 BUN/Creatinine Ratio 22.5 High 8-20 Calcium 9.0 mg/dL 8.1-9.9 Total Protein 5.6 g/dL Low 6.2-8.1 Albumin 3.5 g/dL 3.2-5.2 Globulin 2.1 g/dL 2-4 Albumin/Globulin Ratio 1.7 1-3 Total Bilirubin 0.5 mg/dL 0.4-1.5 Alkaline Phosphatase 50 U/L 30-110 Alt 16 U/L 14-54 Ast 13 U/L 12-42 Egfr Non- 71.8 >60 Egfr 92.3 >60 66 Lipid Profile 04/19/2012 [facility] Triglycerides 90 mg/dL 40 -200 (Trig/Chol/HDL) [address] [place] [address] [phone] Cholesterol 167 mg/dL Less than 200 HDL Cholesterol 62 mg/dL High 40-60 67 Cholesterol/HDL Ratio 2.7 Average 1-4.44 LDL Cholesterol 87.0 mg/dL Less Than 100 68 Laboratory test 04/19/2012 [facility] Creatine 60 U/L 0-200 [address] [place] [address] [phone] Comp Metabolic 11/01/2011 [facility] Sodium 142 135-[address] mmol/[place] [address] [phone] Potassium 4.3 mmol/L 3.5-5.0 Chloride 109 mmol/L 101-111 Co2 (Carbon Dioxide) 28.0 mmol/L 22-32 Anion Gap 5.0 mmol/L 2-11 70 Glucose 129 mg/dL High 70-100 BUN 13 mg/dL 6-24 Creatinine 0.7 mg/dL 0.50-1.40 One Over Creatinine 1.42 BUN/Creatinine Ratio 18.6 8-20 Calcium 9.0 mg/dL 8.1-9.9 Total Protein 6.1 GM/DL Low 6.2-8.1 Albumin 3.6 GM/DL 3.2-5.2 Globulin 2.5 GM/DL 2-4 Albumin/Globulin Ratio 1.4 1-3 Bilirubin Total 0.5 mg/dL 0.4-1.5 71 Alkaline Phosphatase 60 U/L 30-110 Alt (SGPT) 17 U/L 14-54 Ast (Sgot) 16 U/L 12-42 eGFR Non- 83.7 > 60 eGFR 107.7 > 60 72 Lipid Profile 11/01/2011 [facility] Triglyceride 69 mg/dL 40- 200 (Trig/Chol/HDL) [address] [place] [address] [phone] Cholesterol 199 mg/dL Less Than 200 73 High Density Lipoprotein 69 mg/dL High 40-60 74 Cholesterol/HDL Ratio 2.88 AVERAGE 1-4.44 Low Density Lipoprotein 116 mg/dL High Less Than 100 75 Laboratory test 11/01/2011 [facility] CPK (Creatine 79 U/L 0- [address] Kinase) [place] [address] [phone] TSH 3.15 MIU/ML 0.34-5.60 Basic Metabolic Panel 07/30/2011 [facility] Sodium 141 mmol/L 135-145 [address] [place] [address] [phone] Potassium 4.2 mmol/L 3.5-5.0 Chloride 107 mmol/L 101-111 Co2 (Carbon Dioxide) 29.0 mmol/L 22-32 Anion Gap 5.0 mmol/L 2-11 76 Glucose 100 mg/dL 70-100 BUN 19 mg/dL 6-24 Creatinine 0.7 mg/dL 0.50-1.40 One Over Creatinine 1.42 BUN/Creatinine Ratio 27.1 High 8-20 Calcium 9.0 mg/dL 8.1-9.9 eGFR Non- 83.7 > 60 eGFR 107.7 > 60 77 Lipid Profile 07/30/2011 [facility] Triglyceride 71 mg/dL 40- 200 (Trig/Chol/HDL) [address] [place] [address] [phone] Cholesterol 149 mg/dL Less Than 200 78 High Density Lipoprotein 67 mg/dL High 40-60 79 Cholesterol/HDL Ratio 2.22 AVERAGE 1-4.44 Low Density Lipoprotein 68 mg/dL Less Than 100 80 CBC Auto Diff 07/14/2010 [facility] White Blood 10.9 CUMM High 4.8-10.[address] [place] [address] [phone] Red Cell Count 4.57 CUMM 4.2-5.4 Hemoglobin 13.2 g/dL 12.0-16.0 Hematocrit 40 % 35-47 Mean Corpuscular Volume 87 um3 79-97 Mean Corpuscular Hemoglob 29 pg 27-31 Mean Corpuscular HGB Cone 33 g/dL 32-36 Redcell Distribution WDTH 14 % 10.5-15 Platelet Count 296 CUMM 150-450 Mean Platelet Volume 8.0 um3 7.4-10.4 81 Manual Differential 07/14/2010 [facility] Polysegmented 72 % 38-[address] [place] [address] [phone] Lymphocyte 14 % Low 25-47 Monocyte 11 % 0-13 Eosinophil 2 % 0-6 Basophil 1 % 0-2 Absolute Neutrophil Count 7.8 RBC Morphology NORMAL Laboratory test finding 06/11/2010 [facility] Alt (SGPT) 18 U/L 14-[address] [place] [address] [phone] Theophylline 8.0 g/mL 8-20 82 TSH 2.71 MIU/ML 0.34-5.60 Lipid Profile 06/11/2010 [facility] Triglyceride 71 mg/dL 40- 200 (Trig/Chol/HDL) [address] [place] [address] [phone] Cholesterol 153 mg/dL Less Than 200 83 High Density Lipoprotein 70 mg/dL High 40-60 84 Cholesterol/HDL Ratio 2.19 AVERAGE 1-4.44 Low Density Lipoprotein 69 mg/dL Less Than 100 85 Basic Metabolic Panel 06/11/2010 [facility] Sodium 138 mmol/L 135-[address] [place] [address] [phone] Potassium 4.3 mmol/L 3.5-5.0 Chloride 102 mmol/L 101-111 Co2 (Carbon Dioxide) 28.0 mmol/L 22-32 Anion Gap 8.0 mmol/L 2-11 86 Glucose 322 mg/dL High 70-100 BUN 15 mg/dL 6-24 Creatinine 0.90 mg/dL 0.50-1.40 One Over Creatinine 1.10 BUN/Creatinine Ratio 16.7 8-20 Calcium 9.7 mg/dL 8.1-9.9 eGFR Non- 62.8 > 60 eGFR 80.8 > 60 87 Lipid Panel - 12/16/2009 [facility] CPK (Creatine 73 U/L 0- 170 [address] Kinase) [place] [address] [phone] Comp Metabolic 12/16/2009 [facility] Sodium 140 135-[address] mmol/[place] [address] [phone] Potassium 4.1 mmol/L 3.5-5.0 Chloride 107 mmol/L 101-111 Co2 (Carbon Dioxide) 28.0 mmol/L 22-32 Anion Gap 5.0 mmol/L 2-11 89 Glucose 170 mg/dL High 70-100 90 BUN 11 mg/dL 6-24 Creatinine 0.80 mg/dL 0.50-1.40 One Over Creatinine 1.20 BUN/Creatinine Ratio 13.8 8-20 Calcium 9.2 mg/dL 8.1-9.9 Total Protein 6.2 GM/DL 6.2-8.1 Albumin 3.8 GM/DL 3.2-5.2 Globulin 2.4 GM/DL 2-4 Albumin/Globulin Ratio 1.6 1-3 Bilirubin Total 0.5 mg/dL 0.4-1.5 91 Alkaline Phosphatase 61 U/L 30-110 Alt (SGPT) 19 U/L 14-54 Ast (Sgot) 18 U/L 12-42 eGFR Non- 76.8 > 60 eGFR 92.9 > 60 92 Lipid Profile 12/16/2009 [facility] Triglyceride 99 mg/dL 40- 200 (Trig/Chol/HDL) [address] [place] [address] [phone] Cholesterol 191 mg/dL Less Than 200 93 High Density Lipoprotein 70 mg/dL High 40-60 94 Cholesterol/HDL Ratio 2.73 AVERAGE 1-4.44 Low Density Lipoprotein 101 mg/dL High Less Than 100 95 Comp Metabolic Panel 02/25/2009 [facility] Sodium 139 mmol/L 135-[address] [place] [address] [phone] Potassium 4.0 mmol/L 3.5-5.0 Chloride 104 mmol/L 101-111 Co2 (Carbon Dioxide) 28.0 mmol/L 22-32 Anion Gap 7.0 mmol/L 2-11 96 Glucose 142 mg/dL High 70-100 97 BUN 11 mg/dL 6-24 Creatinine 0.70 mg/dL 0.50-1.40 One Over Creatinine 1.40 BUN/Creatinine Ratio 15.7 8-20 Calcium 8.9 mg/dL 8.1-9.9 98 Total Protein 5.6 GM/DL Low 6.2-8.1 Albumin 3.5 GM/DL 3.2-5.2 Globulin 2.1 GM/DL 2-4 Albumin/Globulin Ratio 1.7 1-3 Bilirubin Total 0.7 mg/dL 0.4-1.5 99 Alkaline Phosphatase 49 U/L 30-110 Alt (SGPT) 19 U/L 14-54 Ast (Sgot) 14 U/L 12-42 eGFR Non- 89.8 > 60 eGFR 108.7 > 60 100 Lipid Profile 02/25/2009 [facility] Triglyceride 82 mg/dL 40- 200 (Trig/Chol/HDL) [address] [place] [address] [phone] Cholesterol 176 mg/dL Less Than 200 101 High Density Lipoprotein 68 mg/dL High 40-60 102 Cholesterol/HDL Ratio 2.59 AVERAGE 1-4.44 Low Density Lipoprotein 92 mg/dL Less Than 100 103 Laboratory test 02/25/2009 [facility] CPK (Creatine 31 U/L 0- 170 finding [address] [facility] Kinase) [place] [address] [phone] Liver Function 02/25/2009 [facility] Bilirubin 0.1 mg/dL 0.1- 0.5 Panel 101 [facility] [place] [address] [phone] Indirect Bilirubin 0.6 mg/dL 0.1-0.75 Laboratory test 02/25/2009 [facility] TSH 2.22 MIU/ML 0.34- 5.60 finding [address] [place] [address] [phone] Vitamin D, 25 02/25/2009 [facility] 25-Hydroxy <4.0 ng/mL () Hydroxy [address] [facility] Vitamin D2 [place] [address] [phone] 25-Hydroxy Vitamin D3 28 ng/mL () 25-Hydroxy Vitamin D Total 28 ng/mL () 104 Basic Metabolic Panel 07/03/2008 [facility] Sodium 137 mmol/L 135-[address] [place] [address] [phone] Potassium 3.9 mmol/L 3.5-5.0 Chloride 103 mmol/L 101-111 Co2 (Carbon Dioxide) 27.0 mmol/L 22-32 Anion Gap 7.0 mmol/L 2-11 105 Glucose 294 mg/dL High 70-100 106 BUN 16 mg/dL 6-24 Creatinine 0.90 mg/dL 0.50-1.40 One Over Creatinine 1.10 BUN/Creatinine Ratio 17.8 8-20 Calcium 9.2 mg/dL 8.1-9.9 107 Laboratory test 07/03/2008 [facility] Theophylline 8.6 g/mL 8-20 108 finding [address] [place] [address] [phone] TSH 1.87 MIU/ML 0.34-5.60 Basic Metabolic Panel 06/13/2008 [facility] Sodium 140 mmol/L 135-145 [address] [place] [address] [phone] Potassium 4.0 mmol/L 3.5-5.0 Chloride 104 mmol/L 101-111 Co2 (Carbon Dioxide) 28.0 mmol/L 22-32 Anion Gap 8.0 mmol/L 2-11 109 Glucose 190 mg/dL High 70-100 110 BUN 15 mg/dL 6-24 Creatinine 0.90 mg/dL 0.50-1.40 One Over Creatinine 1.10 BUN/Creatinine Ratio 16.7 8-20 Calcium 9.4 mg/dL 8.1-9.9 111 Lipid Profile 06/13/2008 [facility] Triglyceride 72 mg/dL 40- 200 (Trig/Chol/HDL) [address] [place] [address] [phone] Cholesterol 159 mg/dL Less Than 200 112 High Density Lipoprotein 65 mg/dL High 40-60 113 Cholesterol/HDL Ratio 2.45 AVERAGE 1-4.44 Low Density Lipoprotein 80 mg/dL Less Than 100 114 Laboratory test 06/13/2008 [facility] Alt (SGPT) 16 U/L 14- 54 finding [address] [place] [address] [phone] Lipid Panel - J[facility] 11/14/2007 [facility] CPK (Creatine 84 U/L 0-170 101 [facility] Kinase) [place] [address] [phone] Comp Metabolic 11/14/2007 [facility] Sodium 141 mmol/L 135- 145 Panel [address] [place] [address] [phone] Potassium 4.0 mmol/L 3.5-5.0 Chloride 107 mmol/L 101-111 Co2 (Carbon Dioxide) 28.0 mmol/L 22-32 Anion Gap 6.0 mmol/L 2-11 115 Glucose 113 mg/dL High 70-105 BUN 14 mg/dL 6-24 Creatinine 0.9 mg/dL 0.5-1.4 One Over Creatinine 1.11 BUN/Creatinine Ratio 15.6 8-20 Calcium 9.1 mg/dL 8.1-9.9 116 Total Protein 5.9 GM/DL Low 6.2-8.1 Albumin 3.5 GM/DL 3.2-5.2 Globulin 2.4 GM/DL 2-4 Albumin/Globulin Ratio 1.5 1-3 Bilirubin Total 0.7 mg/dL 0.4-1.5 Alkaline Phosphatase 65 U/L 30-110 Alt (SGPT) 22 U/L 14-54 Ast (Sgot) 20 U/L 12-42 Lipid Profile 11/14/2007 [facility] Triglyceride 95 mg/dL 40- 200 (Trig/Chol/HDL) [address] [place] [address] [phone] Cholesterol 167 mg/dL Less Than 200 117 High Density Lipoprotein 58 mg/dL 40-60 118 Cholesterol/HDL Ratio 2.88 AVERAGE 1-4.44 Low Density Lipoprotein 90 mg/dL Less Than 100 119 Lipid Panel - 08/23/2007 [facility] CPK (Creatine 82 U/L 0- [address] Kinase) [place] [address] [phone] Comp Metabolic 08/23/2007 [facility] Sodium 141 135-[address] mmol/[place] [address] [phone] Potassium 4.4 mmol/L 3.5-5.0 Chloride 107 mmol/L 101-111 Co2 (Carbon Dioxide) 30.0 mmol/L 22-32 Anion Gap 4.0 mmol/L 2-11 120 Glucose 218 mg/dL High 70-105 BUN 20 mg/dL 6-24 Creatinine 0.9 mg/dL 0.5-1.4 One Over Creatinine 1.11 BUN/Creatinine Ratio 22.2 High 8-20 Calcium 8.7 mg/dL 8.7-10.2 Total Protein 6.3 GM/DL 6.2-8.1 Albumin 3.6 GM/DL 3.2-5.2 Globulin 2.7 GM/DL 2-4 Albumin/Globulin Ratio 1.3 1-3 Bilirubin Total 0.6 mg/dL 0.4-1.5 Alkaline Phosphatase 59 U/L 30-110 Alt (SGPT) 18 U/L 14-54 Ast (Sgot) 19 U/L 12-42 Lipid Profile 08/23/2007 [facility] Triglyceride 73 mg/dL 40- 200 (Trig/Chol/HDL) [address] [place] [address] [phone] Cholesterol 149 mg/dL Less Than 200 121 High Density Lipoprotein 59 mg/dL 40-60 122 Cholesterol/HDL Ratio 2.53 AVERAGE 1-4.44 Low Density Lipoprotein 75 mg/dL Less Than 100 123 Laboratory test 06/13/2007 [facility] Alt (SGPT) 21 U/L 14- [address] [place] [address] [phone] Lipid Profile 06/13/2007 [facility] Cholesterol/ 3.10 AVERAGE 1-4.44 (Trig/Chol/HDL) [address] [place] [address] [phone] Cholesterol 180 mg/dL Less Than 200 124 Triglyceride 108 mg/dL 40-200 High Density Lipoprotein 58 mg/dL 40-60 Low Density Lipoprotein 100 mg/dL Less Than 100 125 1 Because ethnic data is not always readily available, this report includes an eGFR for both -Americans and non- Americans. The National Kidney Disease Education Program (NKDEP) does not endorse the use of the MDRD equation for patients that are not between the ages of 18 and 70, are , have extremes of body size, muscle mass, or nutritional status, or are non- or non-. According to the National Kidney Foundation, irrespective of diagnosis, the stage of the disease is based on the level of kidney function: Stage Description GFR(mL/min/1.73 m(2)) 1 Kidney damage with normal or decreased GFR 90 2 Kidney damage with mild decrease in GFR 60-89 3 Moderate decrease in GFR 30-59 4 Severe decrease in GFR 15-29 5 Kidney failure <15 (or dialysis) 2 Desirable: <150 Borderline High: 150-199 High: 200-499 Very High: >500 3 Desirable: <200 Borderline High: 200-239 High: >239 4 Low: <40 Desirable: 40-60 High: >60 5 Desirable: <100 Near Optimal: 100-129 Borderline High: 130-159 High: 160-189 Very High: >189 6 Normal Range 180 to 914 Indeterminate Range 145 to 180 Deficient Range <145 7 [employer]: [id number] FASTING in 6 weeks Copy Result to: SEBASTIAN EUCEDA ([id number]) 9 Because ethnic data is not always readily available, this report includes an eGFR for both -Americans and non- Americans. The National Kidney Disease Education Program (NKDEP) does not endorse the use of the MDRD equation for patients that are not between the ages of 18 and 70, are , have extremes of body size, muscle mass, or nutritional status, or are non- or non-. According to the National Kidney Foundation, irrespective of diagnosis, the stage of the disease is based on the level of kidney function: Stage Description GFR(mL/min/1.73 m(2)) 1 Kidney damage with normal or decreased GFR 90 2 Kidney damage with mild decrease in GFR 60-89 3 Moderate decrease in GFR 30-59 4 Severe decrease in GFR 15-29 5 Kidney failure <15 (or dialysis) 10 Desirable: <150 Borderline High: 150-199 High: 200-499 Very High: >500 11 Desirable: <200 Borderline High: 200-239 High: >239 12 Low: <40 Desirable: 40-60 High: >60 13 Desirable: <100 Near Optimal: 100-129 Borderline High: 130-159 High: 160-189 Very High: >189 14 FASTING in 6 weeks Copy Result to: SEBASTIAN EUCEDA ([id number]) 15 Because ethnic data is not always readily available, this report includes an eGFR for both -Americans and non- Americans. The National Kidney Disease Education Program (NKDEP) does not endorse the use of the MDRD equation for patients that are not between the ages of 18 and 70, are , have extremes of body size, muscle mass, or nutritional status, or are non- or non-. According to the [employer], irrespective of diagnosis, the stage of the disease is based on the level of kidney function: Stage Description GFR(mL/min/1.73 m(2)) 1 Kidney damage with normal or decreased GFR 90 2 Kidney damage with mild decrease in GFR 60-89 3 Moderate decrease in GFR 30-59 4 Severe decrease in GFR 15-29 5 Kidney failure <15 (or dialysis) 16 Desirable: <150 Borderline High: 150-199 High: 200-499 Very High: >500 17 Desirable: <200 Borderline High: 200-239 High: >239 18 Low: <40 Desirable: 40-60 High: >60 19 Desirable: <100 Near Optimal: 100-129 Borderline High: 130-159 High: 160-189 Very High: >189 20 Because ethnic data is not always readily available, this report includes an eGFR for both -Americans and non- Americans. The National Kidney Disease Education Program (NKDEP) does not endorse the use of the MDRD equation for patients that are not between the ages of 18 and 70, are , have extremes of body size, muscle mass, or nutritional status, or are non- or non-. According to the National Kid[employer], irrespective of diagnosis, the stage of the disease is based on the level of kidney function: Stage Description GFR(mL/min/1.73 m(2)) 1 Kidney damage with normal or decreased GFR 90 2 Kidney damage with mild decrease in GFR 60-89 3 Moderate decrease in GFR 30-59 4 Severe decrease in GFR 15-29 5 Kidney failure <15 (or dialysis) 21 Desirable: <150 Borderline High: 150-199 High: 200-499 Very High: >500 22 Desirable: <200 Borderline High: 200-239 High: >239 23 Low: <40 Desirable: 40-60 High: >60 24 Desirable: <100 Near Optimal: 100-129 Borderline High: 130-159 High: 160-189 Very High: >189 25 Normal Range 180 to 914 Indeterminate Range 145 to 180 Deficient Range <145 26 Because ethnic data is not always readily available, this report includes an eGFR for both -Americans and non- Americans. The National Kidney Disease Education Program (NKDEP) does not endorse the use of the MDRD equation for patients that are not between the ages of 18 and 70, are , have extremes of body size, muscle mass, or nutritional status, or are non- or non-. According to the National Kidney Foundation, irrespective of diagnosis, the stage of the disease is based on the level of kidney function: Stage Description GFR(mL/min/1.73 m(2)) 1 Kidney damage with normal or decreased GFR 90 2 Kidney damage with mild decrease in GFR 60-89 3 Moderate decrease in GFR 30-59 4 Severe decrease in GFR 15-29 5 Kidney failure <15 (or dialysis) 27 Desirable <150 Borderline high 150-199 High 200-499 Very High >500 28 Desirable <200 Borderline high 200-239 High >239 29 Low <40 Desirable: 40-60 High: >60 30 Desirable: <100 mg/dL Near Optimal: 100-129 mg/dL Borderline High: 130-159 mg/dL High: 160-189 mg/dL Very High: >189 mg/dL 31 FASTING 10 HOUR fsting ccpmn 32 Because ethnic data is not always readily available, this report includes an eGFR for both -Americans and non- Americans. The National Kidney Disease Education Program (NKDEP) does not endorse the use of the MDRD equation for patients that are not between the ages of 18 and 70, are , have extremes of body size, muscle mass, or nutritional status, or are non- or non-. According to the National Kidney Foundation, irrespective of diagnosis, the stage of the disease is based on the level of kidney function: Stage Description GFR(mL/min/1.73 m(2)) 1 Kidney damage with normal or decreased GFR 90 2 Kidney damage with mild decrease in GFR 60-89 3 Moderate decrease in GFR 30-59 4 Severe decrease in GFR 15-29 5 Kidney failure <15 (or dialysis) 33 Desirable <150 Borderline high 150-199 High 200-499 Very High >500 34 Desirable <200 Borderline high 200-239 High >239 35 Low <40 Desirable: 40-60 High: >60 36 Desirable: <100 mg/dL Near Optimal: 100-129 mg/dL Borderline High: 130-159 mg/dL High: 160-189 mg/dL Very High: >189 mg/dL 37 Because ethnic data is not always readily available, this report includes an eGFR for both -Americans and non- Americans. The National Kidney Disease Education Program (NKDEP) does not endorse the use of the MDRD equation for patients that are not between the ages of 18 and 70, are , have extremes of body size, muscle mass, or nutritional status, or are non- or non-. According to the National Kidney Foundation, irrespective of diagnosis, the stage of the disease is based on the level of kidney function: Stage Description GFR(mL/min/1.73 m(2)) 1 Kidney damage with normal or decreased GFR 90 2 Kidney damage with mild decrease in GFR 60-89 3 Moderate decrease in GFR 30-59 4 Severe decrease in GFR 15-29 5 Kidney failure <15 (or dialysis) 38 Reference Range and Interpretation: TnI (ng/mL) Interpretation Less Than 0.03 ng/mL Not supportive of diagnosis of NC 0.03 - 0.50 ng/mL Indeterminate: suggest serial studies if clinically indicated. Greater than 0.5 ng/mL Consistent with diagnosis of NC 39 Desirable <150 Borderline high 150-199 High 200-499 Very High >500 40 Desirable <200 Borderline high 200-239 High >239 41 Low <40 Desirable: 40-60 High: >60 42 Desirable: <100 mg/dL Near Optimal: 100-129 mg/dL Borderline High: 130-159 mg/dL High: 160-189 mg/dL Very High: >189 mg/dL 43 Because ethnic data is not always readily available, this report includes an eGFR for both -Americans and non- Americans. The National Kidney Disease Education Program (NKDEP) does not endorse the use of the MDRD equation for patients that are not between the ages of 18 and 70, are , have extremes of body size, muscle mass, or nutritional status, or are non- or non-. According to the National Kidney Foundation, irrespective of diagnosis, the stage of the disease is based on the level of kidney function: Stage Description GFR(mL/min/1.73 m(2)) 1 Kidney damage with normal or decreased GFR 90 2 Kidney damage with mild decrease in GFR 60-89 3 Moderate decrease in GFR 30-59 4 Severe decrease in GFR 15-29 5 Kidney failure <15 (or dialysis) 44 fsting cc pmd 45 fsting cc pmd 46 Because ethnic data is not always readily available, this report includes an eGFR for both -Americans and non- Americans. The National Kidney Disease Education Program (NKDEP) does not endorse the use of the MDRD equation for patients that are not between the ages of 18 and 70, are , have extremes of body size, muscle mass, or nutritional status, or are non- or non-. According to the National Kidney Foundation, irrespective of diagnosis, the stage of the disease is based on the level of kidney function: Stage Description GFR(mL/min/1.73 m(2)) 1 Kidney damage with normal or decreased GFR 90 2 Kidney damage with mild decrease in GFR 60-89 3 Moderate decrease in GFR 30-59 4 Severe decrease in GFR 15-29 5 Kidney failure <15 (or dialysis) 47 Desirable <150 Borderline high 150-199 High 200-499 Very High >500 48 Desirable <200 Borderline high 200-239 High >239 49 Low <40 Desirable: 40-60 High: >60 50 Desirable <100 Near Optimal 100-129 Borderline high 130-159 High 160-189 Very High >189 51 fsting cc pmd 52 RUN DATE: 07/31/13 [facility] LAB LIVE PAGE 1 RUN TIME: [address] [place] [address] Specimen Inquiry Name: VIVI SABILLON : [address]: Yan Waggoner Acct: [id number] Unit: [id number] AGE: 68 Location: ED Re07/28/13 SEX: F Status: DEP ER SPEC: [id number] ZAHRA: 07/29/[address]: Yan Ni DO REQ: [id number] RECD: 07/29/13 STATUS: STACEY GOLDMAN DR: [facility] Sebastian Jacome MD _ SOURCE: URINE SPDESC: ORDERED: Urine Culture QUERIES: Medent Number [id number] Procedure Result Verified Site Urine Culture Final 07/31/13- 921 ML No Growth Day 2 (<1,000 CFU/mL) END OF REPORT * ML=Testing performed at Main Lab DEPARTMENT OF PATHOLOGY, [address] [place] [address] Danielito Angelo M.D. Director [facility] Permit #[id number] RUN DATE: 08/02/13 [facility] LAB LIVE PAGE 1 RUN TIME: [address] [place] [address] Specimen Inquiry Name: VIVI SABILLON : [address]: Yan Waggoner Acct: [id number] Unit: [id number] AGE: 68 Location: ED Re07/28/13 SEX: F Status: DEP ER SPEC: [id number] ZAHRA: 07/28/13 [facility] DR: Yan Ni DO REQ: [id number] RECD: 07/28/13 STATUS: STACEY GOLDMAN DR: [facility] Sebastian Jacome MD _ SOURCE: BLOOD,VENO SPDESC: ORDERED: Blood Cult Procedure Result Verified Site Aerobic Culture Bottle Final 08/02/13- 2245 ML No Growth Day 5 Anaerobic Culture Bottle Final 08/02/13- 2245 ML No Growth Day 5 END OF REPORT * ML=Testing performed at Main Lab DEPARTMENT OF PATHOLOGY, [facility] [address], [place] [address] Danielito Angelo M.D. Director [facility] Permit #[id number] 54 Because ethnic data is not always readily available, this report includes an eGFR for both -Americans and non- Americans. The National Kidney Disease Education Program (NKDEP) does not endorse the use of the MDRD equation for patients that are not between the ages of 18 and 70, are , have extremes of body size, muscle mass, or nutritional status, or are non- or non-. According to the National Kidney Foundation, irrespective of diagnosis, the stage of the disease is based on the level of kidney function: Stage Description GFR(mL/min/1.73 m(2)) 1 Kidney damage with normal or decreased GFR 90 2 Kidney damage with mild decrease in GFR 60-89 3 Moderate decrease in GFR 30-59 4 Severe decrease in GFR 15-29 5 Kidney failure <15 (or dialysis) 55 RUN DATE: 08/02/13 [facility] LAB LIVE PAGE 1 RUN TIME: 2244 [facility] [employer] [place], [place] [address] Specimen Inquiry Name: VIVI SABILLON : [address]: Yan Waggoner Acct: [id number] Unit: [id number] AGE: 68 Location: ED Re07/28/13 SEX: F Status: DEP ER SPEC: [id number] ZAHRA: 07/28/[address]: Yan Ni DO REQ: [id number] RECD: 07/28/13 STATUS: STACEY GOLDMAN DR: [facility] Sebastian Jacome MD _ SOURCE: BLOOD,VENO SPDESC: ORDERED: Blood Cult Procedure Result Verified Site Aerobic Culture Bottle Final 08/02/13- 2245 ML No Growth Day 5 Anaerobic Culture Bottle Final 08/02/13- 2245 ML No Growth Day 5 END OF REPORT * ML=Testing performed at Main Lab DEPARTMENT OF PATHOLOGY, [address] [place] [address] Danielito Angelo M.D. Director [facility] Permit #[id number] Desirable <150 Borderline high 150-199 High 200-499 Very High >500 57 Desirable <200 Borderline high 200-239 High >239 58 Low <40 Desirable: 40-60 High: >60 59 Desirable <100 Near Optimal 100-129 Borderline high 130-159 High 160-189 Very High >189 60 FASTING 61 Because ethnic data is not always readily available, this report includes an eGFR for both -Americans and non- Americans. The National Kidney Disease Education Program (NKDEP) does not endorse the use of the MDRD equation for patients that are not between the ages of 18 and 70, are , have extremes of body size, muscle mass, or nutritional status, or are non- or non-. According to the National Kidney Foundation, irrespective of diagnosis, the stage of the disease is based on the level of kidney function: Stage Description GFR(mL/min/1.73 m(2)) 1 Kidney damage with normal or decreased GFR 90 2 Kidney damage with mild decrease in GFR 60-89 3 Moderate decrease in GFR 30-59 4 Severe decrease in GFR 15-29 5 Kidney failure <15 (or dialysis) 62 HDL Interpretation: Undesirable: High Risk: Less than 40 mg/dL Desirable: Low Risk: Greater than 60 mg/dL 63 LDL Interpretation: Low Risk Optimal Level: LDL Less than 100 mg/dL Near or Above Optimal: LDL 100-129 mg/dL Borderline High Risk: LDL 130-159 mg/dL High Risk: LDL 160-189 mg/dL Very High Risk: LDL Greater than 189 mg/dL 64 FASTING 12 HOUR Please also fax a copy to Dr Correa (at [facility]) 65 Because ethnic data is not always readily available, this report includes an eGFR for both -Americans and non- Americans. The National Kidney Disease Education Program (NKDEP) does not endorse the use of the MDRD equation for patients that are not between the ages of 18 and 70, are , have extremes of body size, muscle mass, or nutritional status, or are non- or non-. According to the National Kidney Foundation, irrespective of diagnosis, the stage of the disease is based on the level of kidney function: Stage Description GFR(mL/min/1.73 m(2)) 1 Kidney damage with normal or decreased GFR 90 2 Kidney damage with mild decrease in GFR 60-89 3 Moderate decrease in GFR 30-59 4 Severe decrease in GFR 15-29 5 Kidney failure <15 (or dialysis) 66 Because ethnic data is not always readily available, this report includes an eGFR for both -Americans and non- Americans. The National Kidney Disease Education Program (NKDEP) does not endorse the use of the MDRD equation for patients that are not between the ages of 18 and 70, are , have extremes of body size, muscle mass, or nutritional status, or are non- or non-. According to the National Kidney Foundation, irrespective of diagnosis, the stage of the disease is based on the level of kidney function: Stage Description GFR(mL/min/1.73 m(2)) 1 Kidney damage with normal or decreased GFR 90 2 Kidney damage with mild decrease in GFR 60-89 3 Moderate decrease in GFR 30-59 4 Severe decrease in GFR 15-29 5 Kidney failure <15 (or dialysis) 67 HDL Interpretation: Undesirable: High Risk: Less than 40 MG/DL Desirable: Low Risk: Greater than 60 MG/DL 68 LDL Interpretation: Low Risk Optimal Level: LDL Less than 100 MG/DL Near or Above Optimal: LDL 100-129 MG/DL Borderline High Risk: LDL 130-159 MG/DL High Risk: LDL 160-189 MG/DL Very High Risk: LDL Greater than 189 MG/DL 69 FASTING 70 Anion gap measurement may be of limited value in the presence of any alkalosis, especially in a combined acid base disorder. . 71 A metabolite of Naproxen, O-desmethylnaproxen, has been shown to interfere with the Jendrassik-Clancy method for measuring total bilirubin. Samples from patients who have taken Naproxen have shown spurious elevation in total bilirubin levels. 72 Because ethnic data is not always readily available, this report includes an eGFR for both -Americans and non- Americans. The National Kidney Disease Education Program (NKDEP) does not endorse the use of the MDRD equation for patients that are not between the ages of 18 and 70, are , have extremes of body size, muscle mass, or nutritional status, or are non- or non-. According to the National Kidney Foundation, irrespective of diagnosis, the stage of the disease is based on the level of kidney function: Stage Description GFR(mL/min/1.73 m(2)) 1 Kidney damage with normal or decreased GFR 90 2 Kidney damage with mild decrease in GFR 60-89 3 Moderate decrease in GFR 30-59 4 Severe decrease in GFR 15-29 5 Kidney failure <15 (or dialysis) 73 CHOLESTEROL INTERPRETATION: Desirable: Less than 200 MG/DL Borderline-High Risk: 200-239 MG/DL High-Risk: 240 MG/DL and over 74 HDL INTERPRETATION: Undesirable: High Risk: Less than 40 MG/DL Desirable: Low Risk: Greater than 60 MG/DL 75 LDL INTERPRETATION: Low Risk Optimal Level: LDL Less than 100 MG/DL Near or Above Optimal: LDL 100-129 MG/DL Borderline High Risk: LDL 130-159 MG/DL High Risk: LDL 160-189 MG/DL Very High Risk: LDL Greater than 189 MG/DL 76 Anion gap measurement may be of limited value in the presence of any alkalosis, especially in a combined acid base disorder. . 77 Because ethnic data is not always readily available, this report includes an eGFR for both -Americans and non- Americans. The National Kidney Disease Education Program (NKDEP) does not endorse the use of the MDRD equation for patients that are not between the ages of 18 and 70, are , have extremes of body size, muscle mass, or nutritional status, or are non- or non-. According to the National Kidney Foundation, irrespective of diagnosis, the stage of the disease is based on the level of kidney function: Stage Description GFR(mL/min/1.73 m(2)) 1 Kidney damage with normal or decreased GFR 90 2 Kidney damage with mild decrease in GFR 60-89 3 Moderate decrease in GFR 30-59 4 Severe decrease in GFR 15-29 5 Kidney failure <15 (or dialysis) 78 CHOLESTEROL INTERPRETATION: Desirable: Less than 200 MG/DL Borderline-High Risk: 200-239 MG/DL High-Risk: 240 MG/DL and over 79 HDL INTERPRETATION: Undesirable: High Risk: Less than 40 MG/DL Desirable: Low Risk: Greater than 60 MG/DL 80 LDL INTERPRETATION: Low Risk Optimal Level: LDL Less than 100 MG/DL Near or Above Optimal: LDL 100-129 MG/DL Borderline High Risk: LDL 130-159 MG/DL High Risk: LDL 160-189 MG/DL Very High Risk: LDL Greater than 189 MG/DL 81 Lymphopenia % 82 The detection limit for THEOPHYLLINE is 0.2 mcg/ml . Values less than 0.2 mcg/ml cannot be accurately measured. . 83 CHOLESTEROL INTERPRETATION: Desirable: Less than 200 MG/DL Borderline-High Risk: 200-239 MG/DL High-Risk: 240 MG/DL and over 84 HDL INTERPRETATION: Undesirable: High Risk: Less than 40 MG/DL Desirable: Low Risk: Greater than 60 MG/DL 85 LDL INTERPRETATION: Low Risk Optimal Level: LDL Less than 100 MG/DL Near or Above Optimal: LDL 100-129 MG/DL Borderline High Risk: LDL 130-159 MG/DL High Risk: LDL 160-189 MG/DL Very High Risk: LDL Greater than 189 MG/DL 86 Anion gap measurement may be of limited value in the presence of any alkalosis, especially in a combined acid base disorder. . 87 Because ethnic data is not always readily available, this report includes an eGFR for both -Americans and non- Americans. The National Kidney Disease Education Program (NKDEP) does not endorse the use of the MDRD equation for patients that are not between the ages of 18 and 70, are , have extremes of body size, muscle mass, or nutritional status, or are non- or non-. According to the National Kidney Foundation, irrespective of diagnosis, the stage of the disease is based on the level of kidney function: Stage Description GFR(mL/min/1.73 m(2)) 1 Kidney damage with normal or decreased GFR 90 2 Kidney damage with mild decrease in GFR 60-89 3 Moderate decrease in GFR 30-59 4 Severe decrease in GFR 15-29 5 Kidney failure <15 (or dialysis) [address] RESULTS TO DR. CORREA AT [phone]. 89 Anion gap measurement may be of limited value in the presence of any alkalosis, especially in a combined acid base disorder. . 90 Note change in reference range as of 11/23/07. The change was based on recommendations from the [place] [employer]. 91 A metabolite of Naproxen, O-desmethylnaproxen, has been shown to interfere with the Jendrassik-Clancy method for measuring total bilirubin. Samples from patients who have taken Naproxen have shown spurious elevation in total bilirubin levels. 92 Because ethnic data is not always readily available, this report includes an eGFR for both -Americans and non- Americans. The National Kidney Disease Education Program (NKDEP) does not endorse the use of the MDRD equation for patients that are not between the ages of 18 and 70, are , have extremes of body size, muscle mass, or nutritional status, or are non- or non-. According to the National Kidney Foundation, irrespective of diagnosis, the stage of the disease is based on the level of kidney function: Stage Description GFR(mL/min/1.73 m(2)) 1 Kidney damage with normal or decreased GFR 90 2 Kidney damage with mild decrease in GFR 60-89 3 Moderate decrease in GFR 30-59 4 Severe decrease in GFR 15-29 5 Kidney failure <15 (or dialysis) 93 CHOLESTEROL INTERPRETATION: Desirable: Less than 200 MG/DL Borderline-High Risk: 200-239 MG/DL High-Risk: 240 MG/DL and over 94 HDL INTERPRETATION: Undesirable: High Risk: Less than 40 MG/DL Desirable: Low Risk: Greater than 60 MG/DL 95 LDL INTERPRETATION: Low Risk Optimal Level: LDL Less than 100 MG/DL Near or Above Optimal: LDL 100-129 MG/DL Borderline High Risk: LDL 130-159 MG/DL High Risk: LDL 160-189 MG/DL Very High Risk: LDL Greater than 189 MG/DL 96 Anion gap measurement may be of limited value in the presence of any alkalosis, especially in a combined acid base disorder. . 97 Note change in reference range as of 11/23/07. The change was based on recommendations from the [place] [employer]. 98 Please note change in reference range effective 07 . 99 A metabolite of Naproxen, O-desmethylnaproxen, has been shown to interfere with the Jendrassik-Liliana method for measuring total bilirubin. Samples from patients who have taken Naproxen have shown spurious elevation in total bilirubin levels. 100 Because ethnic data is not always readily available, this report includes an eGFR for both -Americans and non- Americans. The National Kidney Disease Education Program (NKDEP) does not endorse the use of the MDRD equation for patients that are not between the ages of 18 and 70, are , have extremes of body size, muscle mass, or nutritional status, or are non- or non-. According to the National Kidney Foundation, irrespective of diagnosis, the stage of the disease is based on the level of kidney function: Stage Description GFR(mL/min/1.73 m(2)) 1 Kidney damage with normal or decreased GFR 90 2 Kidney damage with mild decrease in GFR 60-89 3 Moderate decrease in GFR 30-59 4 Severe decrease in GFR 15-29 5 Kidney failure <15 (or dialysis) 101 CHOLESTEROL INTERPRETATION: Desirable: Less than 200 MG/DL Borderline-High Risk: 200-239 MG/DL High-Risk: 240 MG/DL and over 102 HDL INTERPRETATION: Undesirable: High Risk: Less than 40 MG/DL Desirable: Low Risk: Greater than 60 MG/DL 103 LDL INTERPRETATION: Low Risk Optimal Level: LDL Less than 100 MG/DL Near or Above Optimal: LDL 100-129 MG/DL Borderline High Risk: LDL 130-159 MG/DL High Risk: LDL 160-189 MG/DL Very High Risk: LDL Greater than 189 MG/DL 104 -- REFERENCE VALUE -- 25-HYDROXY D TOTAL (D2+D3) Optimum levels in the normal population are 25-80 Test Performed by: [facility] Dpt of Lab Med and Pathology [address] [place] [id number] Thinner Sprayer: Humza Franks III, M.D. 105 Anion gap measurement may be of limited value in the presence of any alkalosis, especially in a combined acid base disorder. . 106 Note change in reference range as of 11/23/07. The change was based on recommendations from the [place] [employer]. 107 Please note change in reference range effective 07 . 108 The detection limit for THEOPHYLLINE is 0.2 mcg/ml . Values less than 0.2 mcg/ml cannot be accurately measured. . 109 Anion gap measurement may be of limited value in the presence of any alkalosis, especially in a combined acid base disorder. . 110 Note change in reference range as of 11/23/07. The change was based on recommendations from the [place] [employer]. 111 Please note change in reference range effective 07 . 112 CHOLESTEROL INTERPRETATION: Desirable: Less than 200 MG/DL Borderline-High Risk: 200-239 MG/DL High-Risk: 240 MG/DL and over 113 HDL INTERPRETATION: Undesirable: High Risk: Less than 40 MG/DL Desirable: Low Risk: Greater than 60 MG/DL 114 LDL INTERPRETATION: Low Risk Optimal Level: LDL Less than 100 MG/DL Near or Above Optimal: LDL 100-129 MG/DL Borderline High Risk: LDL 130-159 MG/DL High Risk: LDL 160-189 MG/DL Very High Risk: LDL Greater than 189 MG/DL 115 Anion gap measurement may be of limited value in the presence of any alkalosis, especially in a combined acid base disorder. . 116 Please note change in reference range effective 07 . 117 CHOLESTEROL INTERPRETATION: Desirable: Less than 200 MG/DL Borderline-High Risk: 200-239 MG/DL High-Risk: 240 MG/DL and over 118 HDL INTERPRETATION: Undesirable: High Risk: Less than 40 MG/DL Desirable: Low Risk: Greater than 60 MG/DL 119 LDL INTERPRETATION: Low Risk Optimal Level: LDL Less than 100 MG/DL Near or Above Optimal: LDL 100-129 MG/DL Borderline High Risk: LDL 130-159 MG/DL High Risk: LDL 160-189 MG/DL Very High Risk: LDL Greater than 189 MG/DL 120 Anion gap measurement may be of limited value in the presence of any alkalosis, especially in a combined acid base disorder. . 121 CHOLESTEROL INTERPRETATION: Desirable: Less than 200 MG/DL Borderline-High Risk: 200-239 MG/DL High-Risk: 240 MG/DL and over 122 HDL INTERPRETATION: Undesirable: High Risk: Less than 40 MG/DL Desirable: Low Risk: Greater than 60 MG/DL 123 LDL INTERPRETATION: Low Risk Optimal Level: LDL Less than 100 MG/DL Near or Above Optimal: LDL 100-129 MG/DL Borderline High Risk: LDL 130-159 MG/DL High Risk: LDL 160-189 MG/DL Very High Risk: LDL Greater than 189 MG/DL 124 Classification: Desirable . 125 CALCULATED LDL APPROXIMATES THE VALUE OF A DIRECT LDL MEASUREMENT. Classification: Near or above optimal . Procedures Date Code Description Status 03/01/2018 45112 EKG Tracing & Interpretation Completed 06/27/2017 74450 ECHO Transthoracic, Real-Time 2D With Doppler And Color Completed Flow 06/27/2017 13371 ECHO Transthoracic, Real-Time 2D With Doppler And Color Completed Flow 06/24/2017 89302 Holter Monitor Review (24 hr)dr review & interp only Completed 06/22/2017 41176 ECG Monitor/Recording W/Visual Superimposition Scanning Completed 06/10/2017 82485 Treadmill Interp/Report Only Completed 06/10/2017 73710 Stress Test Supervsn W/Out I/R Completed 06/01/2017 77242 EKG Tracing & Interpretation Completed 02/16/2017 52079 Stress Test Supervsn W/Out I/R Completed 02/16/2017 93527 EKG Tracing & Interpretation Completed 01/26/2016 82089 EKG Tracing & Interpretation Completed 05/06/2015 35554 Stress Test Completed 05/06/2015 45515 Myocardial Perfusion Imaging Tomographic (Spect) Multiple Completed Studies 05/06/2015 28129 Myocardial Perfusion Imaging Tomographic (Spect) Multiple Completed Studies 01/24/2015 48561 Stress Test Supervsn W/Out I/R Completed 01/24/2015 42692 Treadmill Interp/Report Only Completed 12/05/2014 22872 ECHO Transthoracic, Real-Time 2D With Doppler And Color Completed Flow 12/04/2014 23387 EKG Tracing & Interpretation Completed 04/18/2014 78308 EKG Tracing & Interpretation Completed 07/06/2013 20203 ECHO Transthoracic, Real-Time 2D With Doppler And Color Completed Flow 06/20/2013 87457 Holter Monitor Review (24 hr)dr review & interp only Completed 06/05/2013 26241 EKG Tracing & Interpretation Completed 04/19/2013 85717 Treadmill Interp/Report Only Completed 04/19/2013 78828 Stress Test Supervsn W/Out I/R Completed 04/19/2013 17427 EKG, Interpretation Only Completed 08/10/2012 91816 EKG Tracing & Interpretation Completed 02/03/2012 04551 EKG Tracing & Interpretation Completed 09/01/2011 35978 EKG Tracing & Interpretation Completed 11/30/2010 50172 EKG Tracing & Interpretation Completed 07/16/2010 00395 ECHO Transthoracic, Real-Time 2D With Doppler And Color Completed Flow 07/14/2010 32325 Stress ECHO Interpretation/Report Hospital Completed 07/14/2010 07140 Treadmill Interp/Report Only Completed 07/14/2010 33126 Stress Test Supervsn W/Out I/R Completed 06/12/2010 26928 EKG Tracing & Interpretation Completed 09/22/2009 04834 EKG Tracing & Interpretation Completed 01/01/2009 71391 EKG, Interpretation Only Completed 01/01/2009 19562 EKG Tracing & Interpretation Completed 08/21/2008 33201 Mobile Cardiovascular Telemetry Over 24 HR Up To 30 Days Completed 08/13/2008 04812 Stress ECHO Interpretation/Report Hospital Completed 08/13/2008 04678 Treadmill Interp/Report Only Completed 08/13/2008 25071 Stress Test Supervsn W/Out I/R Completed 07/16/2008 33614 Mobile Cardiovascular Telemetry Over 24 HR Up To 30 Days Completed 07/01/2008 52664 EKG Tracing & Interpretation Completed 06/30/2007 32555 EKG Tracing & Interpretation Completed 06/30/2007 20604 EKG Tracing & Interpretation Completed 12/07/2006 12097 EKG Tracing & Interpretation Completed 06/02/2006 99493 EKG Tracing & Interpretation Completed 06/02/2006 22883 EKG Tracing & Interpretation Completed 12/02/2005 81781 EKG Tracing & Interpretation Completed 12/02/2005 69452 EKG Tracing & Interpretation Completed 03/09/2005 40679 Color Doppler Completed 03/09/2005 06255 Pulse Doppler & Continuous Wave Completed 03/09/2005 44951 Echocardiogram Completed 03/02/2005 11383 ECHO/Stress Completed 03/02/2005 57442 Treadmill Interp/Report Only Completed 03/02/2005 59500 Stress Test Supervsn W/Out I/R Completed 02/17/2005 94749 EKG Tracing & Interpretation Completed Encounters Type Date Location Provider Dx Diagnosis Office Visit 07/13/2017 [facility] Radha Valerio, R55 Syncope and 11:30a N.P. collapse I10 Essential (primary) hypertension I34.2 Nonrheumatic mitral (valve) stenosis I49.3 Ventricular premature depolarization I49.1 Atrial premature depolarization Office Visit 06/01/2017 1:30p [facility] Orlando Herr E10.69 Type 1 diabetes Cardiology Michelle Jacome mellitus with other specified complication I10 Essential (primary) hypertension I25.10 Athscl heart disease of [place] coronary artery w/o ang pctrs E78.00 Pure hypercholesterolemia, unspecified R55 Syncope and collapse Office Visit 02/16/2017 1:10p [place] Orlando Herr E10.69 Type 1 diabetes Cardiology Michelle Jacome mellitus with other specified complication I10 Essential (primary) hypertension I25.10 Athscl heart disease of [place] coronary artery w/o ang pctrs E10.65 Type 1 diabetes mellitus with hyperglycemia E78.00 Pure hypercholesterolemia, unspecified M79.1 Myalgia Office Visit 09/20/2016 3:47p [facility], R55 Syncope and Assoc,pc 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 disease of [place] coronary artery w/o ang pctrs E78.2 Mixed hyperlipidemia Office Visit 01/26/2016 8:20a [facility] Orlando Herr R06.00 Dyspnea, Michelle Jacome unspecified I10 Essential (primary) hypertension I25.10 Athscl heart disease of [place] coronary artery w/o ang pctrs E78.2 Mixed hyperlipidemia E10.65 Type 1 diabetes mellitus with hyperglycemia Office Visit 01/03/2015 1:30p [facility] Marisol Robertson, I10 Essential (primary) Of [facility] hypertension R60.9 Edema, unspecified E78.2 Mixed hyperlipidemia E10.65 Type 1 diabetes mellitus with hyperglycemia R06.02 Shortness of breath I25.10 Athscl heart disease of [place] coronary artery w/o ang pctrs R60.0 Localized edema Office Visit 12/04/2014 [place] Orlando Herr 414.01 Coronary 2:00p Cardiology Tala Jacome M.D. Atherosclerosis [facility] [place] 272.2 Hyperlipidemia Mixed 250.00 Diabetes Mellitus W/O Compl Type II Or Unspec Controlled 401.1 Hypertension Benign 428.32 Diastolic Heart Failure Chronic 782.3 Edema 786.09 Dyspnea & Respiratory Abnormalities Other Office Visit 06/10/2014 [place] Marisol Robertson 414.01 Coronary 11:00a Cardiology [facility] Atherosclerosis [facility] [place] 272.2 Hyperlipidemia Mixed 493.10 Asthma Intrinsic Unspecified 250.00 Diabetes Mellitus W/O Compl Type II Or Unspec Controlled 401.1 Hypertension Benign Office Visit 04/18/2014 [place] Orlando Herr 414.01 Coronary 1:40p Cardiology Michelle Jacome Atherosclerosis [place] 428.32 Diastolic Heart Failure Chronic 786.50 Pain Chest Unspec 272.2 Hyperlipidemia Mixed 780.4 Dizziness & Giddiness Office Visit 06/05/2013 1:20p [facility] Orlando Herr 785.0 Tachycardia Michelle Jacome Unspec 786.50 Pain Chest Unspec 414.01 Coronary Atherosclerosis [place] 250.03 Diabetes Mellitus W/O Compl Type I Juvenile Uncontrolled 493.10 Asthma Intrinsic Unspecified Office Visit 04/19/2013 4:02p [facility] Leann 786.50 Pain Chest Assoc,constance Rossi D.O. Unspec Hospitalists 414.01 Coronary Atherosclerosis [place] 250.03 Diabetes Mellitus W/O Compl Type I Juvenile Uncontrolled 272.2 Hyperlipidemia Mixed Office Visit 04/18/2013 4:01p [facility], 786.50 Pain Chest Assoc,pc N.P. Unspec Hospitalists 414.01 Coronary Atherosclerosis [place] 250.03 Diabetes Mellitus W/O Compl Type I Juvenile Uncontrolled 272.2 Hyperlipidemia Mixed Office Visit 08/10/2012 10:00a [facility] Orlando Herr 412 Myocardial Michelle Jacome Infarction Old 427.0 PSVT Paroxysmal Supraventricular Tachycardia 414.01 Coronary Atherosclerosis [place] 785.1 Palpitations Office Visit 02/03/2012 [place] Orlando Herr 414.01 Coronary 8:40a Cardiology Michelle Jacome Atherosclerosis [place] 427.0 PSVT Paroxysmal Supraventricular Tachycardia 786.09 Dyspnea & Respiratory Abnormalities Other 412 Myocardial Infarction Old Office Visit 09/01/2011 Vickie Herr 414.01 Coronary 10:40a Cardiology WAYNE Jacome M.D. Atherosclerosis [facility] [place] 786.09 Dyspnea & Respiratory Abnormalities Other 427.0 PSVT Paroxysmal Supraventricular Tachycardia 401.1 Hypertension Benign Office Visit 11/30/2010 Vickie Herr 414.01 Coronary 2:40p Cardiology Michelle Jacome Atherosclerosis [place] 786.09 Dyspnea & Respiratory Abnormalities Other 427.0 PSVT Paroxysmal Supraventricular Tachycardia 401.1 Hypertension Benign Office Visit 06/12/2010 Vickie Herr 414.01 Coronary 1:40p Karen Jacome M.D. Atherosclerosis [place] 427.0 PSVT Paroxysmal Supraventricular Tachycardia 401.1 Hypertension Benign 250.00 Diabetes Mellitus W/O Compl Type II Or Unspec Controlled 412 Myocardial Infarction Old Office Visit 09/22/2009 Vickie Herr 414.01 Coronary 3:00p Cardiology Michelle Jacome Atherosclerosis [place] 427.0 PSVT Paroxysmal Supraventricular Tachycardia 401.1 Hypertension Benign 250.00 Diabetes Mellitus W/O Compl Type II Or Unspec Controlled Office Visit 01/01/2009 Vickie Herr 414.01 Coronary 2:00p Cardiology Michelle Jacome Atherosclerosis [place] 427.0 PSVT Paroxysmal Supraventricular Tachycardia 401.1 Hypertension Benign 250.00 Diabetes Mellitus W/O Compl Type II Or Unspec Controlled Office Visit 07/01/2008 Vickie Herr 414.01 Coronary 1:40p Cardiology Michelle Jacome Atherosclerosis [place] 401.1 Hypertension Benign 250.00 Diabetes Mellitus W/O Compl Type II Or Unspec Controlled 412 Myocardial Infarction Old 785.1 Palpitations Office Visit 06/30/2007 Vickie Herr 414.01 Coronary 9:20a Cardiology Michelle Jacome Atherosclerosis [place] 401.1 Hypertension Benign 250.00 Diabetes Mellitus W/O Compl Type II Or Unspec Controlled 412 Myocardial Infarction Old 428.32 Diastolic Heart Failure Chronic Office Visit 12/23/2006 Vickie Herr 414.01 Coronary 10:00a Cardiology Michelle Jacome Atherosclerosis [place] 401.1 Hypertension Benign 786.50 Pain Chest Unspec 250.00 Diabetes Mellitus W/O Compl Type II Or Unspec Controlled Office Visit 12/07/2006 Vickie Herr 414.01 Coronary 3:20p Cardiology Michelle Jacome Atherosclerosis [place] 401.1 Hypertension Benign 250.00 Diabetes Mellitus W/O Compl Type II Or Unspec Controlled 412 Myocardial Infarction Old 786.50 Pain Chest Unspec 272.0 Hypercholesterolemia Pure Office Visit 06/02/2006 Vickie Herr 414.01 Coronary 1:40p Karen Jacome M.D. Atherosclerosis [place] 401.1 Hypertension Benign 250.00 Diabetes Mellitus W/O Compl Type II Or Unspec Controlled 412 Myocardial Infarction Old Office Visit 12/02/2005 Vickie Herr 414.01 Coronary 1:40p Karen Jacome M.D. Atherosclerosis [place] 786.50 Pain Chest Unspec 272.0 Hypercholesterolemia Pure 250.00 Diabetes Mellitus W/O Compl Type II Or Unspec Controlled Office Visit 09/01/2005 9:20a Vickie Herr 786.50 Pain Chest Michelle Jacome Unspec 414.01 Coronary Atherosclerosis [place] 272.0 Hypercholesterolemia Pure 250.00 Diabetes Mellitus W/O Compl Type II Or Unspec Controlled Office Visit 08/18/2005 Vickie Herr 414.01 Coronary 11:00a Karen Jacome M.D. Atherosclerosis [place] Office Visit 02/17/2005 Vickie Herr 412 Myocardial 9:40a Karen Jacome M.D. Infarction Old 414.01 Coronary Atherosclerosis [place] 250.00 Diabetes Mellitus W/O Compl Type II Or Unspec Controlled 272.0 Hypercholesterolemia Pure Plan of Treatment Future Appointment(s):04/25/2018 1:30 pm - Radha Valerio N.P. at [facility]03/01/2018 - [place] Jacome M.D.I34.2 Nonrheumatic mitral (valve) [id number] Essential (primary) [id number] Dizziness and ahvlzelsdB43.10 Atherosclerotic heart disease of [place] coronary artery withE10.69 Type 1 diabetes mellitus with other specified [id number] Pure hypercholesterolemia, unspecifiedFollow up:Radha nava 2 m ov [facility] 9 m
[2018-03-18 14:07] VITALS: BP 130/64
--- NOTE | 2018-03-18 14:22 | UC ---
Respiratory Complaint HPI - HPI Summary HPI Summary: 72 y/o female presents to the urgent care c/o productive cough w/ yellowish phlegm since Tuesday03/13/2018. Pt w/ Hx of asthma. She started with mild wheezing and low grade fever last night. She has been using albuterol inhaler. Pt usually takes Prednisone PO daily. Symptoms started w/ a common cold and now have worsen w/ body aches and PND. Her PCP couldn't see her until Tuesday. Pain is 4/10. Pt denies fever, but has had chill, she also denies SOB, chest pain, SOTELO , abdominal pain, N/V/D. - History of Current Complaint Chief Complaint: UCRespiratory Stated Complaint: FEVER,COUGH Time Seen by Provider: 03/18/18 14:11 Hx Obtained From: Patient Onset/Duration: Gradual Onset, Lasting Days - 5 days, Still Present, Worse Since - yesterday Timing: Constant Severity Initially: Mild Severity Currently: Moderate Pain Intensity: 1 Pain Scale Used: 0-10 Numeric Character: Cough: Productive, Sputum Description: - yellowish Aggravating Factors: Recumbent Position Alleviating Factors: OTC Meds Associated Signs And Symptoms: Positive: Chills, Wheezing - mild since yesterday , URI, Nasal Congestion, Hoarseness, Sinus Discomfort - Risk Factors Pulmonary Embolism Risk Factors: Negative Cardiac Risk Factors: Diabetes Pseudomonas Risk Factors: Negative Tuberculosis Risk Factors: Negative - Allergies/Home Medications Allergies/Adverse Reactions: Allergies Allergy/AdvReac Type Severity Reaction Status Date / Time Sulfa (Sulfonamide Allergy Unknown Verified 03/18/18 14:07 Antibiotics) Reaction Details Home Medications: Home Medications Insulin Aspart [Novolog] 100 unit SC 03/18/18 [History] PMH/Surg Hx/FS Hx/Imm Hx Previously Healthy: Yes Endocrine History: Diabetes, Dyslipidemia Cardiovascular History: Hypertension Respiratory History: Asthma GI/ History: Gastroesophageal Reflux Other History Of: Anticoagulant Therapy - Surgical History Surgical History: Yes Surgery Procedure, Year, and Place: CARDIAC CATH WITH STENTS X3 IN 2001. C- SECTION. TONSILLECTOMY. LEFT BREAST BIOPSY/BENIGN. - Family History Known Family History: Positive: Cardiac Disease - Father of [place], Diabetes, Other - Breast cancer (mother) - Social History Occupation: Retired Lives: With Family Alcohol Use: None Substance Use Type: None Smoking Status (MU): Never Smoked Tobacco - Immunization History Most Recent Influenza Vaccination: 12/2012 Most Recent Tetanus Shot: 2012 Most Recent Pneumonia Vaccination: 2004 Review of Systems All Other Systems Reviewed And Are Negative: Yes Constitutional: Positive: Chills, Other - body aches Skin: Positive: Negative Eyes: Positive: Negative ENT: Positive: Nasal Discharge, Sinus Congestion, Sinus Pain/Tenderness Respiratory: Positive: Cough - productive, Other - mild wheezing Cardiovascular: Positive: Negative Gastrointestinal: Positive: Negative Genitourinary: Positive: Negative Motor: Positive: Negative Neurovascular: Positive: Negative Musculoskeletal: Positive: Negative Neurological: Positive: Negative Psychological: Positive: Negative Is Patient Immunocompromised?: No Physical Exam - Summary Physical Exam Summary: Vital Signs Reviewed: Yes General: well developed, well nourished old female sitting in the examining table w/o any apparent distress Eyes: Positive: Conjunctiva Clear - PERRLA, EOMI, fundi grossly normal ENT: Positive: Normal ENT inspection, Hearing grossly normal, Pharynx normal, Nasal congestion - edematous and erythematous nasal mucosa, Nasal drainage - yellowish drainage, TMs normal. Negative: Tonsillar swelling, Tonsillar exudate Neck: Positive: Supple, Nontender, No Lymphadenopathy Respiratory: no orthopnea or dyspnea. Able to speak in full sentences, no retractions or accessory muscle use, no tripod position, stridor, or head bobbing. Positive breath sounds bilaterally. mild wheezing and scattered rhonchi on b/L lungs, no crackles or rales. Cardiovascular: Positive: RRR, No Murmur, Pulses Normal, Brisk Capillary Refill Abdomen Description: Positive: Nontender, No Organomegaly, Soft. Negative: CVA Tenderness (R), CVA Tenderness (L) Bowel Sounds: Positive: Present Musculoskeletal Exam: Normal Musculoskeletal: Positive: Strength Intact, ROM Intact, No Edema Neurological Exam: Normal Psychological Exam: Normal Skin Exam: Normal Triage Information Reviewed: Yes Vital Signs: Initial Vital Signs Temp 99.9 F 03/18/18 14:02 Pulse 92 03/18/18 14:02 Resp 18 03/18/18 14:02 BP 130/64 03/18/18 14:02 Pulse Ox 97 03/18/18 14:02 UC Diagnostic Evaluation - Laboratory O2 Sat by Pulse Oximetry: 97 Respiratory Course/Dx - Course Course Of Treatment: 72 y/o female presents to the urgent care c/o productive cough w/ yellowish phlegm since Tuesday03/13/2018. Pt w/ Hx of asthma. She started with mild wheezing and low grade fever last night. She has been using albuterol inhaler. Pt usually takes Prednisone PO daily. Symptoms started w/ a common cold and now have worsen w/ body aches and PND. Her PCP couldn't see her until Tuesday. Pain is 4/10. Pt denies fever, but has had chill, she also denies SOB, chest pain, SOTELO, abdominal pain, N/V/D. Hx obtained. Pt w/ mild wheezing and scattered rhonchi on b/L lungs, no crackles or rales. O2SAt:97%. Pt take Prednisone daily. Pt given Albuterol neb treatment to alleviate symptoms, no Duoneb today at the clinic. Pt tolerated well treatment and lungs improved,and wheezing resolved. Chest X-rqay ordered, Impression: Hyperinflation consistent w/ COPD, no acute cardiopulmonary disease observed as per radiology. Pt w/ Bronchitis probably beginning os asthma exacerbation. Pt is DM. Pt prescribed doxyxycline PO, Tessalon PO and given and Aerochamber to use her albuterol inhaler to alleviate cough and wheezing. The patient was recommended to increase fluid intake. Take medications as recommended. Pt advised to returned to the clinic or f/u w/ her PCP in 2-3 days to make sure her symptoms are improving, she may be developing COPD. D/C instructions explained. Patient understood and agree w/ plan of care. Pt left clinic hemodynamically stable , A& OX3 and feeling better. - Differential Dx/Diagnosis Differential Diagnosis/HQI/PQRI: Asthma, Bronchitis, Influenza, Laryngitis, Sinusitis, Other - pneumonia Provider Diagnosis: Bronchitis, Wheezing, COPD exacerbation Discharge - Sign-Out/Discharge Documenting (check all that apply): Patient Departure - D/C home All imaging exams completed and their final reports reviewed: Yes - Discharge Plan Condition: Stable Disposition: HOME Prescriptions: Benzonatate CAP* [Tessalon 100 MG CAP*] 100 mg PO TID PRN #21 cap PRN Reason: Cough DOXYcycline CAP(*) [DOXYcycline 100MG CAP(*)] 100 mg PO BID #20 cap Patient Education Materials: Acute Bronchitis (ED), COPD (Chronic Obstructive Pulmonary Disease) (ED) Referrals: Sebastian Kaur MD [Primary Care Provider] - 3 Days Additional Instructions: 1-Please take full course of antibiotic to avoid resistance. 2-Take Tessalon tabs PO as directed and Use the albuterol inhaler w/ the Aerochamber to alleviate cough and wheezing. Increase fluid intake, rest and eat well. 3- If symptoms do not improve or worsen or your develop SOB with fever and severe wheezing please go immediately to the ER further evaluation and treatment. 4- F/u with your PCP in 2-3 days for further management on your Asthma, you may be developing COPD 5- Take Tylenol PO q6hrs if you develop fever - Billing Disposition and Condition Condition: STABLE Disposition: Home
[2018-03-18] MEDS ORDERED: Albuterol/Ipratropium NEB.SOL* Albuterol 2.5 MG/Ipratropium 0.5 MG 3 ML INH ONE (14:23)
[2018-03-18] MEDS ORDERED: predniSONE TAB* 20 MG PO ONE (14:23)
[2018-03-18] MEDS ORDERED: Albuterol 2.5 MG/3 ML NEB.SOL* (0.083%) INH ONE (14:46)
== END 2018-03-18 15:26 | disposition home or self-care (01) ==
LOC: UCEAST 13:53
DX: J44.1 Chronic obstructive pulmonary disease with (acute) exacerbation (principal); J40 Bronchitis, not specified as acute or chronic; R06.2 Wheezing; E11.9 Type 2 diabetes mellitus without complications; I10 Essential (primary) hypertension; J45.909 Unspecified asthma, uncomplicated; Z88.2 Allergy status to sulfonamides; Z79.4 Long term (current) use of insulin
CPT/HCPCS: 71046; 99212; G0463

== ENCOUNTER 2018-06-25 08:39 | Emergency (ER) | payer MEDICARE ==
--- NOTE | 2018-06-25 09:07 | ED ---
GI/ HPI - HPI Summary HPI Summary: Pt is a 73 y/o F presenting to the ED brought in by EMS for n/v/d onset the night of 06/23/18. The pt reports nausea, vomiting, and loose diarrhea. Patient has a hx of GRED and reports burning sensation this morning that lasted for 5 minutes and felt similar to her regular heart burn. The pt denies abd pain, any hx of major surgeries, smoking, or alcohol use. - History of Current Complaint Chief Complaint: EDGIBleed Time Seen by Provider: 06/25/18 08:47 Stated Complaint: POSSS GI BLEED PER EMS Hx Obtained From: Patient Onset/Duration: Started Days Ago, Still Present Timing: Lasting Days Severity: Moderate Current Severity: None Pain Intensity: 0 Location of Pain: None Associated Signs and Symptoms: Positive: Nausea, Vomiting, Diarrhea, Chest Pain. Negative: Abdominal Pain Aggravating Factor(s): Nothing Alleviating Factor(s): Nothing - Additional Pertinent History Primary Care Physician: KIN - Allergy/Home Medications Allergies/Adverse Reactions: Allergies Allergy/AdvReac Type Severity Reaction Status Date / Time Sulfa (Sulfonamide Allergy Unknown Verified 03/18/18 14:07 Antibiotics) Reaction Details PMH/Surg Hx/FS Hx/Imm Hx Previously Healthy: No Endocrine/Hematology History: Reports: Hx Anticoagulant Therapy, Hx Diabetes - type 1 on pump Cardiovascular History: Reports: Hx Angina, Hx Coronary Artery Disease, Hx Hypercholesterolemia, Hx Hypertension, Hx Myocardial Infarction - 3 stents Denies: Hx Congestive Heart Failure, Hx Valvular Heart Disease Respiratory History: Reports: Hx Asthma, Hx Chronic Obstructive Pulmonary Disease (COPD) GI History: Reports: Hx Gastroesophageal Reflux Disease, Hx Hiatal Hernia Comment Only: Other GI Disorders - GERD History: Denies: Hx Renal Disease Sensory History: Reports: Hx Contacts or Glasses, Hx Hearing Aid, Hx Hearing Problem - hard of hearing, Other Sensory Impairments - left eye blindness Opthamlomology History: Reports: Hx Contacts or Glasses, Other Sensory Impairments - left eye blindness - Surgical History Surgery Procedure, Year, and Place: CARDIAC CATH WITH STENTS X3 IN 2001. C- SECTION. TONSILLECTOMY. LEFT BREAST BIOPSY/BENIGN. Hx Anesthesia Reactions: No Infectious Disease History: No Infectious Disease History: Denies: Traveled Outside the [place] in Last 30 Days - Family History Known Family History: Positive: Cardiac Disease - Father of [place], Diabetes, Other - Breast cancer (mother) - Social History Alcohol Use: None Hx Substance Use: No Substance Use Type: Reports: None Hx Tobacco Use: No Smoking Status (MU): Never Smoked Tobacco Review of Systems Positive: Chest Pain Positive: Vomiting, Diarrhea, Nausea. Negative: Abdominal Pain All Other Systems Reviewed And Are Negative: Yes Physical Exam - Summary Physical Exam Summary: GENERAL: Patient is a well-developed and nourished female who is lying comfortable in the stretcher. Patient is not in any acute respiratory distress. HEAD AND FACE: Normocephalic EYES: PERRLA, EOMI x 2. EARS: Hearing grossly intact. MOUTH: Oropharynx within normal limits. NECK: Supple, trachea is midline, no adenopathy, no JVD, no carotid bruit. CHEST: Symmetric, no tenderness at palpation LUNGS: Clear to auscultation bilaterally. No wheezing or crackles. CVS: Regular rate and rhythm, S1 and S2 present, no murmurs or gallops appreciated. ABDOMEN: Soft, non-tender. Bowel sounds are normal. No abdominal abnormal pulsations. EXTREMITIES: Full ROM in all major joints, no edema, no cyanosis or clubbing. NEURO: Alert and oriented x 3. No acute neurological deficits. Speech is normal and follows commands. SKIN: Dry and warm Triage Information Reviewed: Yes Vital Signs On Initial Exam: Initial Vitals Temp Pulse Resp BP Pulse Ox 99.6 F 51 16 148/95 97 06/25/18 08:40 06/25/18 08:40 06/25/18 08:40 06/25/18 08:40 06/25/18 08:40 Vital Signs Reviewed: Yes Diagnostics - Vital Signs Vital Signs Temp Pulse Resp BP Pulse Ox 06/25/18 08:52 48 97 06/25/18 08:51 49 148/95 96 06/25/18 08:40 99.6 F 51 16 148/95 97 - Laboratory Result Diagrams: 06/25/18 09:52 06/25/18 09:52 Lab Statement: Any lab studies that have been ordered have been reviewed, and results considered in the medical decision making process. - Radiology CXR Radiology Interpretation Completed By: Radiologist Summary of Radiographic Findings: No active cardiopulmonary disease is noted. ED physician has reviewed this report. - EKG 0940 Cardiac Rate: Bradycardia - 45bpm EKG Rhythm: Sinus Bradycardia ST Segment: Normal Ectopy: None EKG Comparison: No Significant Change - from 09/19/16 Re-Evaluation - Re-Evaluation 1st re-eval Re-Evaluation Time: 11:46 Change: Improved Comment: The patient reports feeling much better. GIGU Course/Dx - Course Course Of Treatment: Pt is a 73 y/o F presenting to the ED brought in by EMS for n/v/d onset the night of 06/23/18. The pt denies abd pain. Upon examination , the pt is normal and her abd is soft and non-tender, stool guaic negative for brown stool. In the ED, she was given ondansetron and pantoprazole to help with her nausea. Work-up remarkable for UTI. Upon re-evaluation, the pt reports feeling much better. I discussed the results with patient and she reports feeling better. She is hemodynamically stable and safe for discharge. Strict return precautions given and she will otherwise follow up with her PCP - Diagnoses Provider Diagnoses: Viral gastroenteritis, UTI (urinary tract infection) Discharge - Sign-Out/Discharge Documenting (check all that apply): Patient Departure Patient Received Moderate/Deep Sedation with Procedure: No - Discharge Plan Condition: Stable Disposition: HOME Prescriptions: Cefdinir [Cefdinir 300 MG CAP] 300 mg PO BID #14 capsule Referrals: Sebastian Kaur MD [Primary Care Provider] - Additional Instructions: Please follow up with your primary care provider in the next 1-3 days. Return to the emergency department with any new or worsening symptoms. - Billing Disposition and Condition Condition: STABLE Disposition: Home - Attestation Statements Document Initiated by Lizz: Yes Documenting Scribe: Stephanie Davis Provider For Whom Lizz is Documenting (Include Credential): Fermin Redding MD. Scribe Attestation: Stephanie Loredo, scribed for Fermin Redding MD. on 06/25/18 at 1313. Scribe Documentation Reviewed: Yes Provider Attestation: The documentation as recorded by the scribe, Stephanie Davis accurately reflects the service I personally performed and the decisions made by me, Amandeep Redding MD. Status of Scribe Document: Viewed
[2018-06-25] MEDS ORDERED: NS 0.9% 1000 ML** 1,000 ML IV ONE (09:27)
[2018-06-25] MEDS ORDERED: Ondansetron INJ* 2 MG/ML VIAL IV ONE (09:29)
[2018-06-25] MEDS ORDERED: Pantoprazole IV* 40 MG IV ONE (09:29)
[2018-06-25 10:03] LABS: ABS Basophils 0.1 10^3/ul (0-0.2); ABS Eosinophils 0.4 10^3/ul (0-0.6); ABS Lymphocytes 0.6 10^3/ul (1.0-4.8); ABS Monocytes 1.1 10^3/ul (0-0.8); ABS Neutrophils 6.9 10^3/ul (1.5-7.7); ABS Nucleated RBC 0 10^3/ul; Hematocrit 44 % (33-41); Hemoglobin 14.5 g/dL (12.0-16.0); Lymphocyte % 6.9 %; Mean Corpuscular HGB Conc 33 g/dL (31-36); Mean Corpuscular Hemoglobin 29 pg (27-31); Mean Corpuscular Volume 88 fL (80-97); Mean Platelet Volume 7.8 fL (7.4-10.4); Nucleated Red Blood Cells % 0; Platelet Count 272 10^3/uL (150-450); Red Blood Count 5.05 10^6 /uL (3.70-4.87); Red Cell Distribution Width 15 % (10.5-15)
[2018-06-25 10:20] LABS: ALT 12 U/L (7-52); AST 19 U/L (13-39); Albumin 3.6 g/dL (3.2-5.2); Albumin/Globulin Ratio 1.4 (1-3); Alkaline Phosphatase 41 U/L (34-104); Anion Gap 4 mmol/L (2-11); BUN/Creatinine Ratio 25.6 (8-20); Blood Urea Nitrogen 21 mg/dL (6-24); C Reactive Protein 63.73 mg/L (<8.01); CO2 Carbon Dioxide 28 mmol/L (22-32); Calcium 8.8 mg/dL (8.6-10.3); Chloride 106 mmol/L (101-111); EGFR African American 82.7 (>60); EGFR Non-African American 68.3 (>60); Globulin 2.6 g/dL (2-4); Glucose 83 mg/dL (70-100); Magnesium 2.4 mg/dL (1.9-2.7); Potassium 4.3 mmol/L (3.5-5.0); Sodium 138 mmol/L (135-145); Total Protein 6.2 g/dL (6.4-8.9)
[2018-06-25 10:21] LABS: Troponin I 0.03 ng/mL (<0.04)
[2018-06-25 12:52] LABS: Urine Appearance Cloudy; Urine Bacteria Absent (Absent); Urine Bilirubin Negative (Negative); Urine Blood 1+ (Negative); Urine Color Yellow; Urine Glucose Negative (Negative); Urine Ketones 1+ (Negative); Urine Nitrite Negative (Negative); Urine Protein 1+(30 mg/dL) (Negative); Urine Red Blood Cell Absent (Absent); Urine Specific Gravity 1.023 (1.010-1.030); Urine Squamous Epithelial Cell Present (Absent); Urine Urobilinogen Positive (Negative); Urine White Blood Cell 3+(>20/hpf) (Absent)
[2018-06-25] MEDS ORDERED: Cefdinir cap* 300 MG CAP PO ONE (12:59)
[2018-06-25 13:05] LABS: Influenza A Molecular NEGATIVE (Negative); Influenza B Molecular NEGATIVE (Negative)
[2018-06-25 13:29] VITALS: BP 147/61
== END 2018-06-25 13:28 | disposition home or self-care (01) ==
LOC: ED 08:39
DX: A08.4 Viral intestinal infection, unspecified (principal); N39.0 Urinary tract infection, site not specified; R00.1 Bradycardia, unspecified; E10.9 Type 1 diabetes mellitus without complications; Z96.41 Presence of insulin pump (external) (internal); Z88.2 Allergy status to sulfonamides; I25.119 Atherosclerotic heart disease of native coronary artery with unspecified angina pectoris; I25.2 Old myocardial infarction; I10 Essential (primary) hypertension; Z95.5 Presence of coronary angioplasty implant and graft; Z79.01 Long term (current) use of anticoagulants
CPT/HCPCS: 36415; 71045; 80053; 81003; 81015; 82272; 83605; 83690; 83735; 83880; 84484; 85025; 85730; 86140; 86850; 86900; 86901; 87086; 93005; 96361; 96374; 96375; 99283; A9270-GY; J2405

== ENCOUNTER 2018-10-04 02:22 | Emergency (ER) | payer MEDICARE ==
--- NOTE | 2018-10-04 02:38 | ED ---
Adult Trauma - HPI Summary HPI Summary: This patient is a 73 year old female brought in by EMS presenting to [facility] with a chief complaint of injuries after a fall 30 minutes ago. The patient complains of facial abrasions and lacerations. The patient was in a chair watching TV when she fell when she got out of the chair to go to the kitchen. The patient is on Plavix. The patient called EMS after she fell since she lives alone. She denies hip pain and was able to stand up and ambulate after the fall. The patient lost consciousness. - History of Current Complaint Stated Complaint: FALL PER EMS Hx Obtained From: Patient Mechanism of Injury: Fall Ambulatory at the Scene: Yes Loss of Consciousness: brief (seconds) - Additional Pertinent History Primary Care Physician: KIN - Allergy/Home Medications Allergies/Adverse Reactions: Allergies Allergy/AdvReac Type Severity Reaction Status Date / Time Sulfa (Sulfonamide Allergy Unknown Verified 03/18/18 14:07 Antibiotics) Reaction Details PMH/Surg Hx/FS Hx/Imm Hx Endocrine/Hematology History: Reports: Hx Anticoagulant Therapy, Hx Diabetes - type 1 on pump Cardiovascular History: Reports: Hx Angina, Hx Coronary Artery Disease, Hx Hypercholesterolemia, Hx Hypertension, Hx Myocardial Infarction - 3 stents Denies: Hx Congestive Heart Failure, Hx Valvular Heart Disease Respiratory History: Reports: Hx Asthma, Hx Chronic Obstructive Pulmonary Disease (COPD) GI History: Reports: Hx Gastroesophageal Reflux Disease, Hx Hiatal Hernia Comment Only: Other GI Disorders - GERD History: Denies: Hx Renal Disease Sensory History: Reports: Hx Contacts or Glasses, Hx Hearing Aid, Hx Hearing Problem - hard of hearing, Other Sensory Impairments - left eye blindness Opthamlomology History: Reports: Hx Contacts or Glasses, Other Sensory Impairments - left eye blindness - Surgical History Surgery Procedure, Year, and Place: CARDIAC CATH WITH STENTS X3 IN 2001. C- SECTION. TONSILLECTOMY. LEFT BREAST BIOPSY/BENIGN. Hx Anesthesia Reactions: No - Family History Known Family History: Positive: Cardiac Disease - Father of [place], Diabetes, Other - Breast cancer (mother) - Social History Alcohol Use: None Hx Substance Use: No Substance Use Type: Reports: None Hx Tobacco Use: No Smoking Status (MU): Never Smoked Tobacco Review of Systems Positive: Other - Denies hip pain. Positive: Other - Facial abrasians and lacerations Positive: Syncope All Other Systems Reviewed And Are Negative: Yes Physical Exam - Summary Physical Exam Summary: VITAL SIGNS: Reviewed. GENERAL: Patient is a well-developed and nourished FEMALE who is lying comfortable in the stretcher. Patient is not in any acute respiratory distress. HEAD AND FACE: No signs of trauma. No ecchymosis, hematomas or skull depressions. No sinus tenderness. EYES: PERRLA, EOMI x 2, No injected conjunctiva, no nystagmus. EARS: Hearing grossly intact. Ear canals and tympanic membranes are within normal limits. MOUTH: Oropharynx within normal limits. NECK: Supple, trachea is midline, no adenopathy, no JVD, no carotid bruit, no c- spine tenderness, neck with full ROM CHEST: Symmetric, no tenderness at palpation LUNGS: Clear to auscultation bilaterally. No wheezing or crackles. CVS: Regular rate and rhythm, S1 and S2 present, no murmurs or gallops appreciated. ABDOMEN: Soft, non-tender. No signs of distention. No rebound no guarding, and no masses palpated. Bowel sounds are normal. EXTREMITIES: FROM in all major joints, no edema, no cyanosis or clubbing. NEURO: Alert and oriented x 3. No acute neurological deficits. Speech is normal and follows commands. SKIN: Dry and warm. Laceration multi-branched on right forehead. Triage Information Reviewed: Yes Vital Signs On Initial Exam: Temp Pulse Resp BP Pulse Ox 95.6 F 89 14 150/92 97 10/04/18 03:24 10/04/18 03:24 10/04/18 03:24 10/04/18 03:24 10/04/18 03:24 Vital Signs Reviewed: Yes Procedures - Laceration/Wound Repair 1 Location: face Length, Depth and Shape: Right forehead, multibranched. Suture Type: Nylon Number of Sutures: 7 Diagnostics - Laboratory Result Diagrams: 10/04/18 03:16 10/04/18 03:16 Lab Statement: Any lab studies that have been ordered have been reviewed, and results considered in the medical decision making process. - CT Cervical Spine CT Interpretation Completed By: Radiologist Summary of CT Findings: No acute findings. ED Provider has reviewed this report. Brain CT Interpretation Completed By: Radiologist Summary of CT Findings: 1. No acute intracranial abnormalities. 2. Mild right frontal scalp swelling. ED Provider has reviewed this report. - EKG 0318 Cardiac Rate: NL EKG Rhythm: Sinus Rhythm - [address] Segment: Non-Specific EKG Comparison: No Significant Change - 06/25/18 Summary of EKG Findings: Q-waves in the inferior leads. Re-Evaluation - Re-Evaluation First Eval Re-Evaluation Time: 04:48 Change: Improved Comment: Ambulated around ED with a walker. Adult Trauma Course/Dx - Course Course Of Treatment: This patient is a 73 year old female brought in by EMS presenting to [facility] with a chief complaint of injuries after a fall 30 minutes ago. Physical exam revealed a multi-branched laceration on the right forehead. This was closed with 7 nylon stitches. Imaging was unremarkable for neurological and muscloskeletal problems. Upon reevaluation to determine ambulation, the patient states she has had trouble balancing while ambulating for no clear reason. In the ED she would walk with an unsteady gait. She was able to ambulate around the ED with the assitance of a walker much better. A plan for discharge was discussed with the patient and she was agreeable with this plan. - Diagnoses Provider Diagnoses: Forehead laceration, Fall Discharge - Sign-Out/Discharge Documenting (check all that apply): Patient Departure - Discharge Patient Received Moderate/Deep Sedation with Procedure: No - Discharge Plan Condition: Stable Disposition: HOME Patient Education Materials: Laceration (ED), Fall Prevention for Older Adults (ED) Referrals: Sebastian Kaur MD [Primary Care Provider] - Additional Instructions: Get stitches removed in 10 days. Return to ED with any new or worsening symptoms. - Attestation Statements Document Initiated by Scribe: Yes Documenting Scribe: Sloan Hobson Provider For Whom Scribe is Documenting (Include Credential): Shy Heard MD Scribe Attestation: Sloan Loredo, scribed for Shy Heard MD on 10/04/18 at 0559. Status of Scribe Document: Ready
[2018-10-04] MEDS ORDERED: Tetan/Diph/Pertus SYR(Tdap)* 0.5 ML SYR(BOOSTRIX) use SYR IM ONE (02:39)
[2018-10-04] MEDS ORDERED: oxyCODONE/Acetamin 5/325 MG* TAB PO ONE (02:40)
[2018-10-04] MEDS ORDERED: Morphine 4 MG/ML VIAL (1 ml) 4 MG/ML VIAL IV ONE (02:44)
[2018-10-04] MEDS ORDERED: Ondansetron INJ* 2 MG/ML VIAL IV ONE (02:45)
[2018-10-04 03:23] LABS: ABS Basophils 0.1 10^3/ul (0-0.2); ABS Eosinophils 0.4 10^3/ul (0-0.6); ABS Lymphocytes 1.3 10^3/ul (1.0-4.8); ABS Monocytes 1.3 10^3/ul (0-0.8); ABS Neutrophils 10.2 10^3/ul (1.5-7.7); Hematocrit 41 % (35-47); Hemoglobin 13.5 g/dL (12.0-16.0); Lymphocyte % 9.6 %; Mean Corpuscular HGB Conc 33 g/dL (31-36); Mean Corpuscular Hemoglobin 29 pg (27-31); Mean Corpuscular Volume 87 fL (80-97); Mean Platelet Volume 8.1 fL (7.4-10.4); Platelet Count 275 10^3/uL (150-450); Red Blood Count 4.72 10^6 /uL (3.70-4.87); Red Cell Distribution Width 15 % (10-15); White Blood Count 13.3 10^3/uL (3.5-10.8)
[2018-10-04 03:40] LABS: Albumin 3.9 g/dL (3.2-5.2); Albumin/Globulin Ratio 1.4 (1-3); BUN/Creatinine Ratio 20.3 (8-20); Calcium 9.6 mg/dL (8.6-10.3); EGFR African American 100.9 (>60); EGFR Non-African American 83.4 (>60); Globulin 2.8 g/dL (2-4); Magnesium 2.3 mg/dL (1.9-2.7); Potassium 3.9 mmol/L (3.5-5.0); Total Bilirubin 0.4 mg/dL (0.2-1.0); Total Protein 6.7 g/dL (6.4-8.9)
[2018-10-04] MEDS ORDERED: Lidocaine 2% w/ EPI 1:200,000* 20 ML VIAL ONE (03:55)
[2018-10-04 04:01] LABS: TSH (Thyroid Stimulating Horm) 4.82 mcIU/mL (0.34-5.60)
[2018-10-04 04:09] LABS: Activated Partial Thrombo Time 34.2 seconds (26.0-38.0); INR 0.98 (0.82-1.09)
[2018-10-04] MEDS ORDERED: NS 0.9% 1000 ML** 1,000 ML IV ONE (05:07)
[2018-10-04 06:45] VITALS: BP 144/71
== END 2018-10-04 06:10 | disposition home or self-care (01) ==
LOC: ED 02:22
DX: S01.81XA Laceration without foreign body of other part of head, initial encounter (principal); Z23 Encounter for immunization; W07.XXXA Fall from chair, initial encounter; Y92.009 Unspecified place in unspecified non-institutional (private) residence as the place of occurrence of the external cause; E10.9 Type 1 diabetes mellitus without complications; I10 Essential (primary) hypertension; I25.10 Atherosclerotic heart disease of native coronary artery without angina pectoris; J44.9 Chronic obstructive pulmonary disease, unspecified; K21.9 Gastro-esophageal reflux disease without esophagitis; Z79.01 Long term (current) use of anticoagulants; Z88.2 Allergy status to sulfonamides; Z96.41 Presence of insulin pump (external) (internal); Z95.818 Presence of other cardiac implants and grafts
CPT/HCPCS: 12001; 36415; 70450; 72125; 80053; 82550; 83735; 84443; 84484; 85025; 85610; 85730; 90471; 90715; 93005; 96372; 96374; 96375; 99283; J2405

== ENCOUNTER 2018-12-23 17:41 | Inpatient (IN) | payer MEDICARE ==
--- OUTSIDE RECORDS SUMMARY | 2018-12-23 18:07 | XMS REPORT | Continuity of Care Document ---
:1945 External Reference #:[id number] Author Name Sebastian Kaur M.D. Address [address] [facility] [address] [place] [address] Care Team Providers Name Role Phone Orlando Jacome MD - Cardiovascular Care Team Information Fuel Pilot Engineer [phone] Disease Estelle/Paul Coalfield - Physical Care Team Information Fuel Pilot Engineer Therapist HCP/LW on file Care Team Information Fuel Pilot Engineer Unavailable [facility] - Surgery Care Team Information Fuel Pilot Engineer [phone] Rohith Perry MD - Endocrinology, Care Team Information Fuel Pilot Engineer Diabetes & Metabolism Problems Active Problems Provider Date Gastroesophageal reflux disease Sebastian Kaur M.D. 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 Onset: 05/10 diabetes mellitus Pure hypercholesterolemia Sebastian Kaur M.D. Onset: 05/10/2006 Coronary arteriosclerosis Sebastian Kaur M.D. Onset: 05/10/2006 Seizure Sebastian Kaur M.D. 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 Onset: 09/2006 Anxiety state Sebastian Kaur M.D. Onset: 12/11/2010 Uncomplicated moderate persistent asthma Sebastian Kaur M.D. Onset: 2014 Uncomplicated moderate persistent asthma Sebastian Kaur M.D. Onset: 2016 Essential hypertension Sebastian Kaur M.D. Onset: 01/23/2018 Retinopathy with type 1 diabetes mellitus Tri Brown PA Onset: 06/29/2018 Social History Type Date Description Comments Sex Unknown Tobacco Use Reviewed: 06/29/18 Never Smoked Cigarettes Smoking Status Reviewed: 06/29/18 Never Smoked Cigarettes ETOH Use Denies alcohol use Tobacco Use Start: Unknown Patient has never smoked Allergies, Adverse Reactions, Alerts Active Allergies Reaction Severity Comments Date Sulfa Caused hives (as an ) 05/10/2006 Medications Active Medications SIG Qnty Indications Ordering Date Provider Ventolin HFA Inhale Two Puffs By 54units J45.40 Silcoff, 10/08/2018 Mouth Every 4 Hours Michelle Cortes 108(90Base) mcg/Act as Needed For Aerosol Asthma Symptoms Fluticasone Inhale One puff By 180units J45.40 Silcoff, 10/03/2018 Propionate/Salmetero Mouth Twice A Day Michelle Cortes l Diskus And Gargle After Use 500-50mcg/Dose Aerosol Glucagon Emergency use as directed, 1units E10.319 Silcoff, 08/16/2018 for severe Michelle Cortes 1mg Kit hypoglycemia Polyethylene Glycol use 1/2 cap full in K59.00 Silcoff, 07/14/2018 3350 4 oz of any fluid Michelle Cortes Powder every day; adjust dose as directed w/ goal of 1-2 soft bms/day Ondansetron HCL 1 tab by mouth up 30tabs A09 Silcoff, 06/29/2018 4mg to three times a Michelle Cortes Tablets day as needed for nausea Rosuvastatin Calcium take one tablet by E78.00 Silcoff, 04/25/2018 mouth every 2nd Michelle Cortes 5mg Tablets day, to lower choloesterol and reduce risk of progressive heart disease Acetaminophen Extra prn Unknown 04/24/2018 Strength 500mg Tablets Benzonatate Take One Capsule By Unknown 03/18/2018 100mg Mouth Three Times A Capsules Day as Needed For Cough Metoprolol Succinate 1 tab po in am and Mauser, 06/29/2017 ER 1 tab po pm MD Orlando 25mg Tablets ER 24HR Theophylline ER Take 1 By Mouth 90tabs J45.40 Silcoff, 01/02/2017 300mg Every Day For Michelle Cortes Tablets ER 12HR Asthma Alprazolam take 1/2-1 tablet 60tabs F41.9 Silcoff, 12/03/2016 0.25mg up to 2x/day as Michelle Cortes Tablets needed for anxiety and sleep Omeprazole Take One Capsule By 90caps K21.9 Natasha, 12/10/2015 40mg Mouth Every Day For Michelle Cortes Capsules DR Acid Reflux Meclizine HCL 1 - 2 tab po tid, 30tabs H81.10 Natasha, 07/08/2015 25mg prn Michelle Cortes Tablets Furosemide Take 1 Tablet By 30tabs I25.10 Natasha, 01/13/2015 20mg Mouth In The Michelle Cortes Tablets Morning If Needed For Edema R60.0 Nitrolingual use as directed, 4.900gm I25.10 Sebastian Kaur, 03/15/2014 0.4mg/Alvarado for angina M.DArminda Solution Clopidogrel Bisulfate Take One Tablet By 90tabs I25.10 Sebastian Kaur, Mouth Every Day M.D. 75mg Tablets Montelukast Sodium Take One Tablet By 90tabs J45.40 Sebastian Kaur, 03/24 10mg Mouth AT Bedtime M.DArminda Tablets For Asthma Prednisone Take 4 Tablets By 360tabs J45.40 Sebastian Kaur, 03/26/2009 1mg Tablets Mouth Once Daily M.D. Novolog used with insulin E10.319 Unknown 100Unit/ML pump Solution Aspirin Low Strength Chew One Tablet By 90units Adis Lopez, 81mg Mouth Every Day For D.O. Chewtabs Heart History Medications Cefdinir Take One Capsule By 14caps Unknown 06/25/2018 - 07/02/2018 300mg Capsules Mouth Two Times A Day x 7 days Medications Administered in Office Medication SIG Qnty Indications Ordering Provider Date H1N1 Swine Flu Vaccine Nurse's Schedule 03/20/2009 Injection Immunizations CPT Code Status Date Vaccine Lot # 12089 Given 12/09/2017 Influenza Vaccine Split Virus Preservative Free Im Use 67965 Given 11/17/2016 Influenza Vaccine Split Virus Preservative Free Im Use 78919 Given 11/28/2015 Influenza Vaccine Split Virus Preservative Free Im Use 08065 Given 12/27/2014 Influenza Vaccine Split Virus Preservative Free Im Use 51046 Given 10/14/2014 Prevnar 13 [id number] 35144 Given 12/19/2013 Influenza Virus Vaccine, Quadrivalent, Split, Preservative Free 11475 Given 12/06/2012 Flu, Split Virus 3Yrs 28325 Given 10/11/2012 Adacel or Boostrix, TDaP [id number] 97602 Given 11/12/2011 Flu, Split Virus 3Yrs 90356 Given 12/08/2010 Flu, Split Virus 3Yrs 85003 Given 06/16/2010 Pneumococcal Immunization [id number] 96683 Given 12/17/2009 Flu, Split Virus 3Yrs [id number] 40765 Given 12/16/2008 Flu, Split Virus 3Yrs [id number] 94981 Given 01/20/2008 Flu, Split Virus 3Yrs [id number] 88986 Given 01/09/2007 Flu, Split Virus 3Yrs [id number] 05368 Given 12/12/2006 Zostavax [id number] 45870 Given 04/04/2005 Td Immunization 12247 Given 04/04/2004 Pneumococcal Immunization 54485 Refused 08/23/2017 Shingrix Zoster (Shingles) Vaccine (HZV) Recomb,Subnit,Adjuvanted Vital Signs Date Vital Result Comment 11/21/2018 8:38am BP Systolic 138 mmHg BP Diastolic 68 mmHg Heart Rate 80 /min reg Respiratory Rate 16 /min not laboured Weight 171.00 lb 10/13/2018 1:20pm BP Systolic 118 mmHg BP Diastolic 58 mmHg Heart Rate 80 /min reg Weight 169.00 lb w/sandals Results Test Date Facility Test Result H/L Range Note Laboratory test 10/04/2018 [facility] Point of Care 110 mg/dL High 70 -100 1 finding [phone] Glucose CBC Auto Diff 10/04/2018 [facility] White Blood 13.3 10^3/uL High 3.5 -10.8 [phone] Count Red Blood Count 4.72 10^6/uL Normal 3.70-4.87 Hemoglobin 13.5 g/dL Normal 12.0-16.0 Hematocrit 41 % Normal 35-47 Mean Corpuscular Volume 87 fL Normal 80-97 Mean Corpuscular Hemoglobin 29 pg Normal 27-31 Mean Corpuscular HGB Conc 33 g/dL Normal 31-36 Red Cell Distribution Width 15 % Normal 10-15 Platelet Count 275 10^3/uL Normal 150-450 Mean Platelet Volume 8.1 fL Normal 7.4-10.4 Abs Neutrophils 10.2 10^3/uL High 1.5-7.7 Abs Lymphocytes 1.3 10^3/uL Normal 1.0-4.8 Abs Monocytes 1.3 10^3/uL High 0-0.8 Abs Eosinophils 0.4 10^3/uL Normal 0-0.6 Abs Basophils 0.1 10^3/uL Normal 0-0.2 Abs Nucleated RBC 0.0 10^3/uL Granulocyte % 76.9 % Lymphocyte % 9.6 % Monocyte % 9.6 % Eosinophil % 3.0 % Basophil % 0.9 % Nucleated Red Blood Cells % 0.0 Comp Metabolic Panel 10/04/2018 [facility] Sodium 141 mmol/L Normal 135-145 [phone] Potassium 3.9 mmol/L Normal 3.5-5.0 Chloride 108 mmol/L Normal 101-111 Co2 Carbon Dioxide 27 mmol/L Normal 22-32 Anion Gap 6 mmol/L Normal 2-11 Glucose 78 mg/dL Normal 70-100 Blood Urea Nitrogen 14 mg/dL Normal 6-24 Creatinine 0.69 mg/dL Normal 0.51-0.95 BUN/Creatinine Ratio 20.3 High 8-20 Calcium 9.6 mg/dL Normal 8.6-10.3 Total Protein 6.7 g/dL Normal 6.4-8.9 Albumin 3.9 g/dL Normal 3.2-5.2 Globulin 2.8 g/dL Normal 2-4 Albumin/Globulin Ratio 1.4 Normal 1-3 Total Bilirubin 0.40 mg/dL Normal 0.2-1.0 Alkaline Phosphatase 51 U/L Normal 34-104 Alt 10 U/L Normal 7-52 Ast 12 U/L Low 13-39 Egfr Non- 83.4 >60 Egfr 100.9 >60 2 Laboratory test 10/04/2018 [facility] Magnesium 2.3 mg/dL Normal 1.9- 2.7 finding [phone] Creatine Kinase(CK) 51 U/L Normal 10-223 Troponin-I (TnI) 0.00 ng/mL <0.04 3 TSH (Thyroid Stim Horm) 4.82 mcIU/mL Normal 0.34-5.60 Inr/Protime 10/04/2018 [facility] Inr 0.98 Normal 0.82-1.09 4 [phone] Laboratory test 10/04/2018 [facility] Partial 34.2 Normal 26.0-38.0 finding [phone] Thrombo seconds Time PTT Urine Culture And 06/29/2018 [facility] Urine SEE RESULT 5 Sensitivities [phone] Culture BELOW Ua Inhouse 06/29/2018 In House Ua Glucose - 6 Ua Bilirubin - Ua Ketones - Ua Specific [place] 1.005 Ua Blood trace Ua PH 5.0 Ua Protein - Ua Urobilinogen - Ua Nitrite - Ua Leukocytes trace Rapid Influenza A 06/25/2018 [facility] Influenza A NEGATIVE Negative 7 & B Molecular [phone] Molecular Influenza B Molecular NEGATIVE Negative Laboratory test 06/25/2018 [facility] Rapid Influenza SEE RESULT 8 finding [phone] A B Antigen BELOW CBC Auto Diff 06/25/2018 [facility] White Blood 9.0 10^3/uL Normal 3.5-10 [phone] Count .8 Red Blood Count 5.05 10^6/uL High 3.70-4.87 Hemoglobin 14.5 g/dL Normal 12.0-16.0 Hematocrit 44 % High 33-41 Mean Corpuscular Volume 88 fL Normal 80-97 Mean Corpuscular Hemoglobin 29 pg Normal 27-31 Mean Corpuscular HGB Conc 33 g/dL Normal 31-36 Red Cell Distribution Width 15 % Normal 10.5-15 Platelet Count 272 10^3/uL Normal 150-450 Mean Platelet Volume 7.8 fL Normal 7.4-10.4 Abs Neutrophils 6.9 10^3/uL Normal 1.5-7.7 Abs Lymphocytes 0.6 10^3/uL Low 1.0-4.8 Abs Monocytes 1.1 10^3/uL High 0-0.8 Abs Eosinophils 0.4 10^3/uL Normal 0-0.6 Abs Basophils 0.1 10^3/uL Normal 0-0.2 Abs Nucleated RBC 0 10^3/uL Granulocyte % 76.2 % Lymphocyte % 6.9 % Monocyte % 12.2 % Eosinophil % 4.0 % Basophil % 0.7 % Nucleated Red Blood Cells % 0 Laboratory test 06/25/2018 [facility] Lactic Acid 0.8 mmol/L Normal 0.5-2.0 9 finding [phone] Comp Metabolic 06/25/2018 [facility] Sodium 138 mmol/L Normal 135- 145 Panel [phone] Potassium 4.3 mmol/L Normal 3.5-5.0 Chloride 106 mmol/L Normal 101-111 Co2 Carbon Dioxide 28 mmol/L Normal 22-32 Anion Gap 4 mmol/L Normal 2-11 Glucose 83 mg/dL Normal 70-100 Blood Urea Nitrogen 21 mg/dL Normal 6-24 Creatinine 0.82 mg/dL Normal 0.51-0.95 BUN/Creatinine Ratio 25.6 High 8-20 Calcium 8.8 mg/dL Normal 8.6-10.3 Total Protein 6.2 g/dL Low 6.4-8.9 Albumin 3.6 g/dL Normal 3.2-5.2 Globulin 2.6 g/dL Normal 2-4 Albumin/Globulin Ratio 1.4 Normal 1-3 Total Bilirubin 0.50 mg/dL Normal 0.2-1.0 Alkaline Phosphatase 41 U/L Normal 34-104 Alt 12 U/L Normal 7-52 Ast 19 U/L Normal 13-39 Egfr Non- 68.3 >60 Egfr 82.7 >60 10 Laboratory test 06/25/2018 [facility] Magnesium 2.4 mg/dL Normal 1.9- 2.7 finding [phone] Lipase < 10 U/L Low 11.0-82.0 C Reactive Protein 63.73 mg/L High <8.01 Troponin-I (TnI) 0.03 ng/mL <0.04 11 Type & Screen 06/25/2018 [facility] Patient Blood Type A Positive [phone] Antibody Screen NEGATIVE Urinalysis Profile 06/25/2018 [facility] Urine Color Yellow [phone] Urine Appearance Cloudy Urine Specific [place] 1.023 Normal 1.010-1.030 Urine pH 7.0 Normal 5-9 Urine Urobilinogen Positive Abnormal Negative Urine Ketones 1+ Abnormal Negative Urine Protein 1+(30 mg/dL) Abnormal Negative Urine Leukocytes 3+ Abnormal Negative Urine Blood 1+ Abnormal Negative Urine Nitrite Negative Negative Urine Bilirubin Negative Negative Urine Glucose Negative Negative Urine White Blood Cell 3+(>20/hpf) Abnormal Absent Urine Red Blood Cell Absent Absent Urine Bacteria Absent Absent Urine Squamous Epithelial Cell Present Abnormal Absent Urine Culture And 06/25/2018 [facility] Urine Culture SEE RESULT 12 Sensitivities [phone] BELOW Stool Occult Blood 06/25/2018 [facility] Stool Occult SEE RESULT 13 Diag [phone] Blood, Diag BELOW Laboratory test 06/25/2018 [facility] Partial 32.7 seconds Normal 26.0- finding [phone] Thrombo Time 36.3 PTT B-Type Natriuretic Peptide BNP 104 pg/mL High <=100 1 Geospatial Information Scientist: [id number] 2 Because ethnic data is not always readily [...] 15-29 5 Kidney failure <15 (or dialysis) 3 Troponin-I testing on Plasma Separator Tubes (PST) has a known false positive rate of 0.20-0.40%. All positive troponins reflex immediately to secondary confirmatory testing. Using the [employer] DxI 800 Access Immunoassay systems, the 99th percentile upper reference limit was demonstrated to be < 0.03 ng/mL. 4 Standard intensity warfarin therapeutic range: 2.0-3.0 High intensity warfarin therapeutic range: 2.5-3.5 5 SEE RESULT BELOW Name: VIVI ELDER : [address]: Tri COREA Acct: [id number] Unit: [id number] AGE: 73 Location: [facility] Re06/29/18 SEX: F Status: REG REF SPEC: [id number] ZAHRA: 06/29/18-[address] [facility] [address]: Tri COREA REQ: [id number] RECD: 06/29/18 STATUS: STACEY GOLDMAN DR: Adis Lopez DO _ SOURCE: URINE SPDESC: ORDERED: Urine Culture COMMENTS: [id number] Procedure Result Reported Site Urine Culture Final 06/30/18- 1227 ML No Growth (<1,000 CFU/mL) * ML - Main Lab . END OF REPORT DEPARTMENT OF PATHOLOGY, [address] [address] Danielito Angelo M.D. Director [facility] # [id number] 6 void, clear, yellow 7 Geospatial Information Scientist: [id number] SEE RESULT BELOW Name: VIVI ELDER : [address]: Amandeep Redding MD Acct: [id number] Unit: [id number] AGE: 73 Location: ED Re06/25/18 SEX: F Status: REG ER SPEC: [id number] ZAHRA: 06/25/[address]: Fermin Redding MD REQ: [id number] RECD: 06/25/18 STATUS: STACEY GOLDMAN DR: Sebastian Kaur MD _ SOURCE: NASAL SPDESC: ORDERED: Flu A B Request Procedure Result Reported Site Rapid Influenza A B Request Final 06/25/18- 1248 ML Specimen received for Influenza A/B Molecular testing * ML - Main Lab . END OF REPORT DEPARTMENT OF PATHOLOGY, [address] [address] Danielito Angelo M.D. Director [facility] # [id number] 9 [facility] Severe Sepsis and Septic Shock Management Bundle Measure requires all lactic acids initially measuring >2.0 mmol/L be repeated. 10 Because ethnic data is not always readily [...] 15-29 5 Kidney failure <15 (or dialysis) 11 Troponin-I testing on Plasma Separator Tubes (PST) has a known false positive rate of 0.20-0.40%. All positive troponins reflex immediate secondary confirmatory testing. 12 SEE RESULT BELOW Name: VIVI ELDER : [address]: Amandeep Redding MD Acct: [id number] Unit: [id number] AGE: 73 Location: ED Re06/25/18 SEX: F Status: DEP ER SPEC: [id number] ZAHRA: 06/25/18-[address] [facility] [address]: Fermin Redding MD REQ: [id number] RECD: 06/25/181211 STATUS: STACEY GOLDMAN DR: Sebastian Kaur MD _ SOURCE: URINE [facility]: ORDERED: Urine Culture Procedure Result Reported Site Urine Culture Final 06/26/18- 1251 ML No growth of clinically significant organisms * ML - Main Lab . END OF REPORT DEPARTMENT OF PATHOLOGY, [address] [address] Danielito Angelo M.D. Director [facility] # [id number] 13 SEE RESULT BELOW Name: VIVI ELDER : [address]: Amandeep Redding MD Acct: [id number] Unit: [id number] AGE: 73 Location: ED Re06/25/18 SEX: F Status: REG ER SPEC: [id number] ZAHRA: 06/25/[address] [facility] [address]: Fermin Redding MD REQ: [id number] RECD: 06/25/18 STATUS: COMP ALEXXHR DR: Sebastian Kaur MD _ SOURCE: STOOL SPDESC: ORDERED: Occult Bl, Diag Procedure Result Reported Site Stool Occult Blood (1) Final 06/25/18943 ML Stool Occult Blood Negative * ML - Main Lab . END OF REPORT DEPARTMENT OF PATHOLOGY, [address] [place] [address] Danielito Angelo M.D. Director [facility] # [id number] Procedures Date Code Description Status 12/15/2017 822805429 Diabetic Retinal Eye Exam Completed 07/03/2017 [id number] Mammogram Completed 12/21/2007 [id number] Colonoscopy Completed Medical Devices Description No Information Available Encounters Type Date Location Provider Dx Diagnosis Office Visit 10/13/2018 Main Office Sebastian Kaur, S01.81xD Laceration w /o 1:15p M.D. foreign body of oth part of head, subs encntr Z48.02 Encounter for removal of sutures I10 Essential (primary) hypertension Office Visit 08/16/2018 2:30p Main Office Sebastain Kaur, E10.319 Type 1 diabetes w M.D. unsp diabetic rtnop w/o macular edema I10 Essential (primary) hypertension J45.40 Moderate persistent asthma, uncomplicated I25.10 Athscl heart disease of [place] coronary artery w/o ang pctrs E78.00 Pure hypercholesterolemia, unspecified F41.9 Anxiety disorder, unspecified K21.9 Gastro-esophageal reflux disease without esophagitis Z96.41 Presence of insulin pump (external) (internal) Office Visit 07/14/2018 2:15p Main Office Natasha K59.00 ConstipationSebastian M.D. unspecified R82.71 Bacteriuria Office Visit 06/29/2018 9:25a Main Office Tri Brown PA N39.0 Urinary tract infection, site not specified A09 Infectious gastroenteritis and colitis, unspecified E10.319 Type 1 diabetes w unsp diabetic rtnop w/o macular edema I10 Essential (primary) hypertension E11.9 Type 2 diabetes mellitus without complications Assessments Date Code Description Provider 11/21/2018 E10.319 Type 1 diabetes mellitus with unspecified Sebastian Kaur M.D. diabetic retinopat 11/21/2018 I10 Essential (primary) hypertension Sebastian Kaur M.D. 11/21/2018 J45.40 Moderate persistent asthma, uncomplicated Sebastian Kaur M.D. 11/21/2018 I25.10 Atherosclerotic heart disease of [place] Sebastian Kaur M.D. coronary artery with 11/21/2018 K21.9 Gastro-esophageal reflux disease without Sebastian Kaur M.D. esophagitis 11/21/2018 Z12.11 Encounter for screening for malignant Sebastian Kaur M.D. neoplasm of colon 11/21/2018 F41.9 Anxiety disorder, unspecified Sebastian Kaur M.D. 11/21/2018 E78.00 Pure hypercholesterolemia, unspecified Sebastian Kaur M.D. 10/13/2018 S01.81xD Laceration without foreign body of other Sebastian Kaur M.D. part of head, subse 10/13/2018 Z48.02 Encounter for removal of sutures Sebastian Kaur M.D. 10/13/2018 I10 Essential (primary) hypertension Sebastian Kaur M.D. 08/16/2018 E10.319 Type 1 diabetes mellitus with unspecified Sebastian Kaur M.D. diabetic retinopat 08/16/2018 I10 Essential (primary) hypertension Sebastian Kaur M.D. 08/16/2018 J45.40 Moderate persistent asthma, uncomplicated Sebastian Kaur M.D. 08/16/2018 I25.10 Atherosclerotic heart disease of [place] Sebastian Kaur M.D. coronary artery with 08/16/2018 E78.00 Pure hypercholesterolemia, unspecified Sebastian Kaur M.D. 08/16/2018 F41.9 Anxiety disorder, unspecified Sebastian Kaur M.D. 08/16/2018 K21.9 Gastro-esophageal reflux disease without Sebastian Kaur M.D. esophagitis 08/16/2018 Z96.41 Presence of insulin pump (external) Sebastian Kaur M.D. (internal) 07/14/2018 K59.00 Constipation, unspecified Sebastian Kaur M.D. 07/14/2018 R82.71 Bacteriuria Sebastian Kaur M.D. 06/29/2018 N39.0 Urinary tract infection, site not specified Tri Brown PA 06/29/2018 A09 Infectious gastroenteritis and colitis, Tri Brown PA unspecified 06/29/2018 E10.319 Type 1 diabetes mellitus with unspecified Tri Brown PA diabetic retinopat 06/29/2018 I10 Essential (primary) hypertension Tri Brown PA 06/29/2018 E11.9 Type 2 diabetes mellitus without Tri Brown PA complications Plan of Treatment 06/29/2018 - Tri Brown PAN39.0 Urinary tract infection, site not specifiedComments:Asymptomatic UTI, on cefdinir. UA still showing trace blood and leukocytes. Will send for culture. Pt to continue cefdinir and push fluids.A09 Infectious gastroenteritis and colitis, unspecifiedNew Medication: Ondansetron HCL 4 mg - 1 tab by mouth up to three times a day as needed for nauseaComments:Viral gastroenteritis, resolving. Rx for prn zofran. Recommended slowly advancing diet and pushing fluids. Recheck if sx not improving.E10.319 Type 1 diabetes mellitus with unspecified diabetic retinopatComments:Pt on insulin pump. Discussed proper eating. She has routine diabetic f/u appt next month.I10 Essential (primary) hypertensionComments:Good control on current meds , continue same.E11.9 Type 2 diabetes mellitus without complications Functional Status Description No Information Available Mental Status Description No Information Available Referrals Description No Information Available
--- OUTSIDE RECORDS SUMMARY | 2018-12-23 18:07 | XMS REPORT | Continuity of Care Document ---
:1945 External Reference #:[id number] Author Name Radha Valerio N.P. (transmitted by agent of provider Samira Samuel) Address [address] [place] [address] Care Team Providers Name Role Phone Sebastian Kaur MD - Internal Care Team Information Flare Worker [phone] Medicine Problems Active Problems Provider Date Coronary arteriosclerosis Orlando Jacome M.D. Onset: 09/01/2011 Difficulty breathing Orlando Jacome M.D. Onset: 09/01/2011 Paroxysmal supraventricular tachycardia Orlando Jacome M.D. Onset: 08/31 Benign essential hypertension Orlando Jacome M.D. Onset: 09/01/2011 Tachycardia Orlando Jacome M.D. Onset: 06/05/2013 Chest pain Orlando Jacome M.D. Onset: 06/05/2013 Type 1 diabetes mellitus uncontrolled Orlando Jacome M.D. Onset: 2013 Chronic diastolic heart failure [place] E[facility] Schedule Onset: 07/06/2013 Heart murmur [place] [facility] Schedule Onset: 07/06/2013 Essential hypertension LYN Bey Onset: 01/03/2015 Social History Type Date Description Comments Sex Unknown ETOH Use Denies alcohol use Tobacco Use Start: Unknown Patient has never smoked Recreational Drug Use Denies Drug Use Smoking Status Reviewed: 12/01/18 Patient has never smoked Exercise Type/Frequency Exercises regularly every other days - bicycle, TM, walking, some weights Allergies, Adverse Reactions, Alerts Active Allergies Reaction Severity Comments Date Sulfa hives 02/17/2005 Medications Active Medications SIG Qnty Indications Ordering Date Provider Nitrolingual as needed chest 1units Radha RajaniArminda Valerio, 07/13/2017 pain. if chest pain N.P. 0.4mg/[place] Solution persists after 10 minutes, call 911. Crestor 1 by mouth every 90tabs Orlando Herr 01/26/2016 5mg Tablets other day Michelle Jacome Furosemide 1 tab by mouth as 30tabs Orlando Herr 01/03/2015 20mg needed only for Michelle Jacome Tablets significant le edema Aspirin 1 PO qd Orlando Herr 06/30/2007 81mg Tablets Michelle Jacoem Toprol XL 1 tab by mouth 180tabs Orlando Herr 09/01/2005 25mg twice daily Michelle Jacome Tablets ER 24HR Prednisone 1 po qd Orlando Herr 02/17/2005 4mg Michelle Jacome Tablets Humalog Insulin by insulin pump Orlando Herr 02/16/2005 Michelle Jacome Injection Singulair One qd At hs 30tabs Orlando Herr 02/16/2005 10mg Michelle Jacome Tablets Plavix 1 PO qd 30tabs Orlando Herr 02/16/2005 75mg Tablets Michelle Jacome Alprazolam 1/2-1 tab by mouth Unknown 0.25mg as needed Tablets Advair Diskus 1 puff twice a day Unknown 500-50mcg/Dose Aerosol Omeprazole 1 po qd Unknown 40mg Capsules DR Bradford MOON 2 puffs by mouth Unknown every 4 hours as 108(90Base) mcg/Act needed Aerosol Meclizine HCL 1-2 tablet every 8 Unknown 25mg hours as needed Tablets Theophylline ER take 1 tablet by Unknown 300mg mouth daily Tablets ER 12HR Medications Administered in Office Medication SIG Qnty Indications Ordering Provider Date Inj, Regadenoson, 0.1 MG Bunny Post M.D., 05/06/2015 Injection FACC, FASNC Inj, Regadenoson, 0.1 MG Orlando Jacome M.D. 05/06/2015 Injection Technetium TC 99M Bunny Post M.D., 05/06/2015 Tetrofosmin, Per Unit Dose FACALENA De La [place] Up To 40 Millicuries Injection Technetium TC 99M Orlando Jacome M.D. 05/06/2015 Tetrofosmin, Per Unit Dose Up To 40 Millicuries Injection Immunizations Description No Information Available Vital Signs Date Vital Result Comment 12/01/2018 1:49pm Height 65 inches 5'5" Weight 173.00 lb with shoes Heart Rate 78 /min BP Systolic Sitting 140 mmHg lue reg cuff BP Diastolic Sitting 60 mmHg lue reg cuff BP Systolic Standing 134 mmHg lue reg cuff BP Diastolic Standing 60 mmHg lue reg cuff Respiratory Rate 18 /min BMI (Body Mass Index) 28.8 kg/m2 Ejection Fraction 60-65% echo. 06/27/17 03/01/2018 8:56am Height 65 inches 5'5" Weight 170.00 lb Heart Rate 84 /min left radial, regular BP Systolic Sitting 125 mmHg right arm BP Diastolic Sitting 58 mmHg right arm BMI (Body Mass Index) 28.3 kg/m2 Ejection Fraction 60-65% echo 06/27/17 Results Description No Information Available Procedures Date Code Description Status 12/01/2018 45008 EKG Tracing & Interpretation Completed Medical Devices Description No Information Available Encounters Description No Information Available Assessments Date Code Description Provider 12/01/2018 I34.2 Nonrheumatic mitral (valve) stenosis Radha Valerio N.P. 12/01/2018 I10 Essential (primary) hypertension Radha Valerio N.P. 12/01/2018 R42 Dizziness and giddiness Radha Valerio N.P. 12/01/2018 I25.10 Atherosclerotic heart disease of [place] Radha Valerio N.P. coronary artery with 12/01/2018 E78.00 Pure hypercholesterolemia, unspecified Radha Valerio N.P. Plan of Treatment 12/01/2018 - Radha Valerio N.P.I34.2 Nonrheumatic mitral (valve) qpfittsxV87 Essential (primary) yjjzfhvaujioD62 Dizziness and giddinessNew Orders:[facility], Ordered: 12/01/18Follow up:6mo OV JFMI25.10 Atherosclerotic heart disease of [place] coronary artery withE78.00 Pure hypercholesterolemia, unspecified Functional Status Description No Information Available Mental Status Description No Information Available Referrals Description No Information Available
--- OUTSIDE RECORDS SUMMARY | 2018-12-23 18:07 | XMS REPORT | Continuity of Care Document ---
:1945 External Reference #:[id number] Author Name Valerie Herbert Care Team Providers Name Role Phone Sebastian Kaur MD - Internal Care Team Information Finance Effectiveness Manager Medicine Problems Active Problems Provider Date Coronary arteriosclerosis Orlando Jacome M.D. Onset: 09/01/2011 Difficulty breathing Orlando Jacome M.D. Onset: 09/01/2011 Paroxysmal supraventricular tachycardia Orlando Jacome M.D. Onset: 08/31 Benign essential hypertension Orlando Jacome M.D. Onset: 09/01/2011 Tachycardia Orlando Jacome M.D. Onset: 06/05/2013 Chest pain Orlando Jacome M.D. Onset: 06/05/2013 Type 1 diabetes mellitus uncontrolled Orlando Jacome M.D. Onset: 2013 Chronic diastolic heart failure [place] ECHO Schedule Onset: 07/06/2013 Heart murmur [place] [facility] Schedule Onset: 07/06/2013 Essential hypertension LYN [...] Medications SIG Qnty Indications Ordering Date Provider Chava Marinelli 1 milliliters sub 6ml E78.00 Orlando Herr 03/01/2018 cutaneous every 2 Michelle Jacome 140mg/ml Solution weeks Auto-Inject Nitrolingual as needed chest 1units Radha GerardArminda Valerio, 07/13/2017 pain. if chest pain N.P. 0.4mg/[place] Solution persists after 10 minutes, call 911. Crestor 1 by mouth every 90tabs Orlando Herr 01/26/2016 5mg Tablets other day Michelle Jacome Furosemide 1 tab by mouth as 30tabs Orlando Herr 01/03/2015 20mg needed only for Michelle Jacome Tablets significant le edema Aspirin 1 PO qd Orlando Herr 06/30/2007 81mg Tablets Michelle Jacome Toprol XL 2 tablet by mouth 180tabs Orlando Herr 09/01/2005 25mg daily Michelle Jacome Tablets ER 24HR Prednisone [...] 1 po qd Unknown 40mg Capsules DR Felder HFAbdoul 2 puffs by mouth Unknown every 4 [...] Post M.D., 05/06/2015 Tetrofosmin, Per Unit Dose ALENA LLANES Up To 40 Millicuries Injection Technetium TC [...] 30.6 kg/m2 Ejection Fraction 60-65% echo 06/27/2017 Results Description No Information Available Procedures Description No Information Available Medical Devices Description No Information Available Encounters Description No Information Available Assessments Description No Information Available Plan of Treatment 03/01/2018 - Orlando Jacome M.D.I34.2 Nonrheumatic mitral (valve) lgbrxsyiL02 Essential (primary) ejtxlruhzilsO16 Dizziness and ccaclqkhyN01.10 Atherosclerotic heart disease of [place] coronary artery withE10.69 Type 1 diabetes mellitus with other specified ybaejeqdcfkpN94.00 Pure hypercholesterolemia, unspecifiedNew Medication:Repatha Sureclick 140 mg/ml - 1 milliliters sub cutaneous every 2 weeksFollow up:Radha in 2 m ov JFM 9 m Functional Status Description No Information Available Mental Status Description No Information Available Referrals Description No Information Available
--- OUTSIDE RECORDS SUMMARY | 2018-12-23 18:07 | XMS REPORT | Continuity of Care Document ---
:1945 External Reference #:[id number] Author Name Tri Brown PA (transmitted by agent of provider Adis Lopez) Address [address] [facility], [facility] [address] [place] [address] Care Team Providers Name Role Phone Orlando Jacome MD - Cardiovascular Care Team Information Polymerization Supervisor Disease Estelle/Paul Stanley - Physical Care Team Information Polymerization Supervisor [phone] Therapist HCP/LW on file Care Team Information Polymerization Supervisor Unavailable [facility] - Surgery Care Team Information Polymerization Supervisor Rohith Perry MD - Endocrinology, Care Team Information Polymerization Supervisor Diabetes & Metabolism Problems Active Problems Provider [...] Rosuvastatin Calcium take one tablet by E78.00 Natasha, 04/25/2018 mouth every 2nd Michelle Cortes 5mg [...] Asthma Alprazolam take 1/2-1 tablet 60tabs F41.9 Natasha, 12/03/2016 0.25mg up to 2x/day as Michelle [...] as directed, 4.900gm I25.10 Sebastian Kaur, 03/15/2014 0.4mg/Hazlet for angina M.DArminda Solution Clopidogrel Bisulfate Take [...] CPT Code Status Date Vaccine Lot # [id number] Given 12/09/2017 Influenza Vaccine Split Virus Preservative Free Im Use 11957 Given 11/17/2016 Influenza Vaccine Split Virus Preservative Free Im Use 38710 Given 11/28/2015 Influenza Vaccine Split Virus Preservative Free Im Use 09511 Given 12/27/2014 Influenza Vaccine Split Virus Preservative Free Im Use 55494 Given 10/14/2014 Prevnar 13 [id number] 00815 Given 12/19/2013 Influenza Virus Vaccine, Quadrivalent, Split, Preservative Free 59816 Given 12/06/2012 Flu, Split Virus 3Yrs 62207 Given 10/11/2012 Adacel or Boostrix, TDaP [id number] 21223 Given 11/12/2011 Flu, Split Virus 3Yrs 44443 Given 12/08/2010 Flu, Split Virus 3Yrs 09374 Given 06/16/2010 Pneumococcal Immunization [id number] 74376 Given 12/17/2009 Flu, Split Virus 3Yrs [id number] 81320 Given 12/16/2008 Flu, Split Virus 3Yrs [id number] 83522 Given 01/20/2008 Flu, Split Virus 3Yrs [id number] 65103 Given 01/09/2007 Flu, Split Virus 3Yrs [id number] 72519 Given 12/12/2006 Zostavax [id number] 37601 Given 04/04/2005 Td Immunization 43754 Given 04/04/2004 Pneumococcal Immunization [id number] Refused 08/23/2017 Shingrix Zoster (Shingles) Vaccine (HZV) [...] Date Facility Test Result H/L Range Note Urine Microalbumin 11/21/2018 [facility] Ur Microalbumin 41.0 mg/L Random [phone] (mg/L) Urine Creatinine 121.23 mg/dL Urine Microalbumin/Creatinine 33.8 High <31 Laboratory test 10/04/2018 [facility] Point of Care 110 mg/dL High 70 -100 1 finding [phone] Glucose CBC Auto Diff 10/04/2018 [facility] White Blood 13.3 10^3/uL High 3.5 -10.8 [phone] Count Red Blood Count 4.72 10^6/uL Normal [...] Cells % 0.0 Comp Metabolic Panel 10/04/2018 [facility] Sodium 141 mmol/L Normal 135-145 [phone] Potassium 3.9 mmol/L Normal 3.5-5.0 Chloride 108 [...] Egfr 100.9 >60 2 Laboratory test 10/04/2018 [facility] Magnesium 2.3 mg/dL Normal 1.9- 2.7 finding [phone] Creatine Kinase(CK) 51 U/L Normal 10-223 Troponin-I (TnI) 0.00 ng/mL <0.04 3 TSH (Thyroid Stim Horm) 4.82 mcIU/mL Normal 0.34-5.60 Inr/Protime 10/04/2018 [facility] Inr 0.98 Normal 0.82-1.09 4 [phone] Laboratory test 10/04/2018 [facility] Partial 34.2 Normal 26.0-38.0 finding [phone] Thrombo seconds Time PTT Urine Culture And 06/29/2018 [facility] Urine SEE RESULT 5 Sensitivities [phone] Culture BELOW Ua Inhouse 06/29/2018 In House Ua Glucose - 6 Ua Bilirubin - Ua Ketones - Ua Specific [place] 1.005 Ua Blood trace Ua PH 5.0 Ua Protein - Ua Urobilinogen - Ua Nitrite - Ua Leukocytes trace Rapid Influenza A 06/25/2018 [facility] Influenza A NEGATIVE Negative 7 & B Molecular [phone] Molecular Influenza B Molecular NEGATIVE Negative Laboratory test 06/25/2018 [facility] Rapid Influenza SEE RESULT 8 finding [phone] A B Antigen BELOW CBC Auto Diff 06/25/2018 [facility] White Blood 9.0 10^3/uL Normal 3.5-10 [phone] Count .8 Red Blood Count 5.05 10^6/uL [...] Blood Cells % 0 Laboratory test 06/25/2018 [facility] Lactic Acid 0.8 mmol/L Normal 0.5-2.0 9 finding [phone] Comp Metabolic 06/25/2018 [facility] Sodium 138 mmol/L Normal 135- 145 Panel [phone] Potassium 4.3 mmol/L Normal 3.5-5.0 Chloride 106 [...] Egfr 82.7 >60 10 Laboratory test 06/25/2018 [facility] Magnesium 2.4 mg/dL Normal 1.9- 2.7 finding [phone] Lipase < 10 U/L Low 11.0-82.0 C Reactive Protein 63.73 mg/L High <8.01 Troponin-I (TnI) 0.03 ng/mL <0.04 11 Type & Screen 06/25/2018 [facility] Patient Blood Type A Positive [phone] Antibody Screen NEGATIVE Urinalysis Profile 06/25/2018 [facility] Urine Color Yellow [phone] Urine Appearance Cloudy Urine Specific [place] 1.023 Normal 1.010-1.030 Urine pH 7.0 Normal [...] Present Abnormal Absent Urine Culture And 06/25/2018 [facility] Urine Culture SEE RESULT 12 Sensitivities [phone] BELOW Stool Occult Blood 06/25/2018 [facility] Stool Occult SEE RESULT 13 Diag [phone] Blood, Diag BELOW Laboratory test 06/25/2018 [facility] Partial 32.7 seconds Normal 26.0- finding [phone] Thrombo Time 36.3 PTT B-Type Natriuretic Peptide BNP 104 pg/mL High <=100 1 Motor Operator: [id number] 2 Because ethnic data is not always [...] immediately to secondary confirmatory testing. Using the [employer] DxI 800 Access Immunoassay systems, the 99th percentile upper reference limit was demonstrated to be < 0.03 ng/mL. 4 Standard intensity warfarin therapeutic range: 2.0-3.0 High intensity warfarin therapeutic range: 2.5-3.5 5 SEE RESULT BELOW Name: VIVI ELDER Rajani : [address]: Tri COREA Acct: [id number] Unit: [id number] AGE: 73 Location: [facility] Re06/29/18 SEX: F Status: REG REF SPEC: [id number] ZAHRA: 06/29/18-1026 [facility] DR: Tri COREA REQ: [id number] RECD: 06/29/18 STATUS: STACEY GOLDMAN DR: Adis Lopez DO _ SOURCE: URINE SPDESC: ORDERED: Urine Culture COMMENTS: [id number] Procedure Result Reported Site Urine Culture Final 06/30/18- 1227 ML No Growth (<1,000 CFU/mL) * ML - Main Lab . END OF REPORT DEPARTMENT OF PATHOLOGY, [address] [place] [address] Danielito Angelo M.D. Director [facility] # [id number] 6 void, clear, yellow 7 Motor Operator: [id number] 8 SEE RESULT BELOW Name: VIVI ELDER : [address]: Amandeep Redding MD Acct: [id number] Unit: [id number] AGE: 73 Location: ED Re06/25/18 SEX: F Status: REG ER SPEC: [id number] ZAHRA: 06/25/18-1240 [facility] DR: Fermin Redding MD REQ: [id number] RECD: 06/25/18 STATUS: STACEY GOLDMAN DR: Sebastian Kaur MD _ SOURCE: NASAL SPDESC: ORDERED: Flu A B Request Procedure Result Reported Site Rapid Influenza A B Request Final 06/25/181247 ML Specimen received for Influenza A/B Molecular testing * ML - Main Lab . END OF REPORT DEPARTMENT OF PATHOLOGY, [address] [place] [address] Danielito Angelo M.D. Director [facility] # [id number] 9 [facility] Severe Sepsis and Septic Shock Management Bundle [...] confirmatory testing. 12 SEE RESULT BELOW Name: TARSHAVIVI JEREZ : [address]: Amandeep Redding MD Acct: [id number] Unit: [id number] AGE: 73 Location: ED Re06/25/18 SEX: F Status: DEP ER SPEC: [id number] ZAHRA: 06/25/18-1208 [facility] [address]: Fermin Redding MD REQ: [id number] RECD: 06/25/18-1211 STATUS: COMP [facility] DR: Sebastian Kaur MD _ SOURCE: URINE SPDESC: ORDERED: Urine Culture Procedure Result Reported Site Urine Culture Final 06/26/18- 1251 ML No growth of clinically significant organisms * ML - Main Lab . END OF REPORT DEPARTMENT OF PATHOLOGY, [address] [place] [address] Danielito Angelo M.D. Director [facility] # [id number] 13 SEE RESULT BELOW Name: VIVI ELDER : [address]: Amandeep Redding MD Acct: [id number] Unit: [id number] AGE: 73 Location: ED Re06/25/18 SEX: F Status: REG ER SPEC: [id number] ZAHRA: 06/25/18 [facility] [address]: Fermni Redding MD REQ: [id number] RECD: 06/25/18 STATUS: COMP SUSI DR: Sebastian Kaur MD _ SOURCE: STOOL SPDESC: ORDERED: Occult Bl, Diag Procedure Result Reported Site Stool Occult Blood (1) Final 06/25/18- 943 ML Stool Occult Blood Negative * ML - Main Lab . END OF REPORT DEPARTMENT OF PATHOLOGY, [address] [place] [address] Danielito Angelo M.D. Director [facility] # [id number] Procedures Date Code Description Status 12/15/2017 642339058 Diabetic Retinal Eye Exam Completed 07/03/2017 86853833 Mammogram Completed 12/21/2007 41374177 Colonoscopy Completed Medical Devices Description No Information Available Encounters Type Date Location Provider Dx Diagnosis Office Visit 11/21/2018 Main Office Sebastian Kaur, E10.319 Type 1 diabetes w 8:30a M.D. unsp diabetic rtnop w/o macular edema I10 Essential (primary) hypertension J45.40 Moderate persistent asthma, uncomplicated I25.10 Athscl heart disease of [place] coronary artery w/o ang pctrs K21.9 Gastro-esophageal reflux disease without esophagitis Z12.11 Encounter for screening for malignant neoplasm of colon F41.9 Anxiety disorder, unspecified E78.00 Pure hypercholesterolemia, unspecified Office Visit 10/13/2018 1:15p Main Office Sebastian Kaur, S01.81xD Laceration w/o M.D. foreign body of oth part of head, subs encntr Z48.02 Encounter for removal of sutures I10 Essential (primary) hypertension Office Visit 08/16/2018 2:30p Main Office Sebastian Kaur, E10.319 Type 1 diabetes w M.D. unsp diabetic rtnop w/o macular edema I10 Essential (primary) hypertension J45.40 Moderate persistent asthma, uncomplicated I25.10 Athscl heart disease of [place] coronary artery w/o ang pctrs E78.00 Pure [...] M.D. 11/21/2018 I25.10 Atherosclerotic heart disease of [place] Sebastian Kaur M.D. coronary artery with 11/21/2018 [...] M.D. 08/16/2018 I25.10 Atherosclerotic heart disease of [place] Sebastian Kaur M.D. coronary artery with 08/16/2018 [...] Tri Brown PA complications Plan of Treatment Future Appointment(s):02/26/2019 8:30 am - Sebastian Kaur M.D. at Main Tvxcmk5111/21/2018 - Sebastian Kaur M.D.E10.319 Type 1 diabetes mellitus with unspecified diabetic retinopatComments:managed by Dr PerryFoalicia up:Please request last note from Dr Perry's hreskrU26 Essential (primary) zhuxpetmajudB40.40 Moderate persistent asthma, uncomplicatedFollow up:RTO 3-4 months recheck chronic problems. Stop in for fasting bloodwork the week prior.I25.10 Atherosclerotic heart disease of [place] coronary artery withK21.9 Gastro-esophageal reflux disease without dnvshzyuxmbW14.11 Encounter for screening for malignant neoplasm of qaohnZ58.9 Anxiety disorder, hjvlfgwdhjeN53.00 Pure hypercholesterolemia, unspecified Functional Status Description No Information Available Mental Status Description No Information Available Referrals Description No Information Available
[2018-12-23 19:54] LABS: ABS Eosinophils 0.3 10^3/ul (0-0.6); ABS Lymphocytes 1.1 10^3/ul (1.0-4.8); ABS Monocytes 0.9 10^3/ul (0-0.8); ABS Neutrophils 7.9 10^3/ul (1.5-7.7); Eosinophil % 3.1 %; Hematocrit 40 % (35-47); Hemoglobin 13.1 g/dL (12.0-16.0); Lymphocyte % 10.8 %; Mean Corpuscular HGB Conc 33 g/dL (31-36); Mean Corpuscular Hemoglobin 29 pg (27-31); Mean Corpuscular Volume 87 fL (80-97); Mean Platelet Volume 7.8 fL (7.4-10.4); Platelet Count 267 10^3/uL (150-450); Red Blood Count 4.57 10^6 /uL (3.70-4.87); Red Cell Distribution Width 14 % (10-15); White Blood Count 10.2 10^3/uL (3.5-10.8)
[2018-12-23 20:11] LABS: Albumin 3.8 g/dL (3.2-5.2); Albumin/Globulin Ratio 1.4 (1-3); BUN/Creatinine Ratio 24.4 (8-20); EGFR African American 82.7 (>60); EGFR Non-African American 68.3 (>60); Globulin 2.8 g/dL (2-4); Potassium 3.5 mmol/L (3.5-5.0); Total Bilirubin 0.5 mg/dL (0.2-1.0); Total Protein 6.6 g/dL (6.4-8.9)
[2018-12-23 20:12] LABS: Troponin I 0.01 ng/mL (<0.04)
--- NOTE | 2018-12-23 20:19 | ED ---
Shortness of Breath - HPI Summary HPI Summary: This patient is a 73 year old F presenting to ED with a chief complaint of SOB over the last 5 days. The SOB is described as worsening with time, and is exacerbated by walking, although she has been able to do activities without too much difficulty. The patient reports recent hypertension and mild weakness. She denies dizziness, lightheadedness, cough, fever, chest pain, nausea, vomiting, and loss of appetite. She reports stopping metoprolol a week ago. Patient had a [place] in 1999. Dr. Jacome is her sports management intern. - History of Current Complaint Chief Complaint: EDShortnessOfBreath Time Seen by Provider: 12/23/18 19:30 Hx Obtained From: Patient Onset/Duration: Lasting Days - 5 days, Still Present Current Severity: Mild Dyspnea At: Exertion Aggravating Factors: Other - Walking Alleviating Factors: Nothing - Allergy/Home Medications Allergies/Adverse Reactions: Allergies Allergy/AdvReac Type Severity Reaction Status Date / Time Sulfa (Sulfonamide Allergy Unknown Verified 12/23/18 17:47 Antibiotics) Reaction Details PMH/Surg Hx/FS Hx/Imm Hx Endocrine/Hematology History: Reports: Hx Anticoagulant Therapy, Hx Diabetes - type 1 on pump Cardiovascular History: Reports: Hx Angina, Hx Coronary Artery Disease, Hx Hypercholesterolemia, Hx Hypertension, Hx Myocardial Infarction - 3 stents Denies: Hx Congestive Heart Failure, Hx Valvular Heart Disease Respiratory History: Reports: Hx Asthma, Hx Chronic Obstructive Pulmonary Disease (COPD) GI History: Reports: Hx Gastroesophageal Reflux Disease, Hx Hiatal Hernia Comment Only: Other GI Disorders - GERD History: Denies: Hx Renal Disease Sensory History: Reports: Hx Contacts or Glasses, Hx Hearing Aid, Hx Hearing Problem - hard of hearing, Other Sensory Impairments - left eye blindness Opthamlomology History: Reports: Hx Contacts or Glasses, Other Sensory Impairments - left eye blindness - Surgical History Surgical History: Yes Surgery Procedure, Year, and Place: CARDIAC CATH WITH STENTS X3 IN 2001. C- SECTION. TONSILLECTOMY. LEFT BREAST BIOPSY/BENIGN. Hx Anesthesia Reactions: No Infectious Disease History: No Infectious Disease History: Denies: Traveled Outside the [place] in Last 30 Days - Family History Known Family History: Positive: Cardiac Disease - Father of [place], Diabetes, Other - Breast cancer (mother) - Social History Alcohol Use: None Hx Substance Use: No Substance Use Type: Reports: None Hx Tobacco Use: No Smoking Status (MU): Never Smoked Tobacco Review of Systems Negative: Fever Negative: Chest Pain Positive: Shortness Of Breath. Negative: Cough Positive: Other - Negative: decreased appetite. Negative: Vomiting, Nausea Neurological: Other - dizziness, lightheadedness Positive: Weakness All Other Systems Reviewed And Are Negative: Yes Physical Exam - Summary Physical Exam Summary: Appearance: Well-appearing, Well-nourished, lying in bed comfortably Skin: Warm, dry, no obvious rash Eyes: sclera anicteric, no conjunctival pallor ENT: mucous membranes moist, pharynx appears normal Neck: Supple, nontender Respiratory: Clear to auscultation, no signs of respiratory distress Cardiovascular: Normal S1, S2. No murmurs. Normal distal pulses in tibial and radial bilaterally. Bradycardia. Abdomen: Soft, nontender, normal active bowel sounds present Musculoskeletal: Normal, Strength/ROM Intact Neurological: A&Ox3, awake and alert, mentation is normal, speech is fluent and appropriate Psychiatric: affect is normal, does not appear anxious or depressed Triage Information Reviewed: Yes Vital Signs On Initial Exam: Initial Vitals Temp Pulse Resp BP Pulse Ox 99.1 F 51 18 206/61 97 12/23/18 17:44 12/23/18 17:44 12/23/18 17:44 12/23/18 17:44 12/23/18 17:44 Vital Signs Reviewed: Yes Diagnostics - Vital Signs Vital Signs Temp Pulse Resp BP Pulse Ox 12/23/18 19:48 46 14 187/58 100 12/23/18 19:21 47 15 98 12/23/18 19:18 50 14 161/61 97 12/23/18 17:44 99.1 F 51 18 206/61 97 - Laboratory Lab Results: Lab Results 12/23/18 12/23/18 12/23/18 Range/Units 19:47 19:47 19:47 WBC 10.2 (3.5-10.8) 10^3/uL RBC 4.57 (3.70-4.87) 10^6 /uL Hgb 13.1 (12.0-16.0) g/dL Hct 40 (35-47) % MCV 87 (80-97) fL MCH 29 (27-31) pg MCHC 33 (31-36) g/dL RDW 14 (10-15) % Plt Count 267 (150-450) 10^3/uL MPV 7.8 (7.4-10.4) fL Neut % (Auto) 77.1 % Lymph % (Auto) 10.8 % [place] % (Auto) 8.6 % Eos % (Auto) 3.1 % Baso % (Auto) 0.4 % Absolute Neuts (auto) 7.9 H (1.5-7.7) 10^3/ul Absolute Lymphs (auto) 1.1 (1.0-4.8) 10^3/ul Absolute Monos (auto) 0.9 H (0-0.8) 10^3/ul Absolute Eos (auto) 0.3 (0-0.6) 10^3/ul Absolute Basos (auto) 0.0 (0-0.2) 10^3/ul Absolute Nucleated RBC 0.0 10^3/ul Nucleated RBC % 0.0 Sodium 142 (135-145) mmol/L Potassium 3.5 (3.5-5.0) mmol/L Chloride 111 (101-111) mmol/L Carbon Dioxide 25 (22-32) mmol/L Anion Gap 6 (2-11) mmol/L BUN 20 (6-24) mg/dL Creatinine 0.82 (0.51-0.95) mg/dL Est GFR ( Amer) 82.7 (>60) Est GFR (Non-Af Amer) 68.3 (>60) BUN/Creatinine Ratio 24.4 H (8-20) Glucose 97 (70-100) mg/dL Lactic Acid 1.1 (0.5-2.0) mmol/L Calcium 9.0 (8.6-10.3) mg/dL Total Bilirubin 0.50 (0.2-1.0) mg/dL AST 12 L (13-39) U/L ALT 14 (7-52) U/L Alkaline Phosphatase 45 (34-104) U/L Troponin I 0.01 (<0.04) ng/mL Total Protein 6.6 (6.4-8.9) g/dL Albumin 3.8 (3.2-5.2) g/dL Globulin 2.8 (2-4) g/dL Albumin/Globulin Ratio 1.4 (1-3) Result Diagrams: 12/24/18 06:49 12/24/18 06:49 Lab Statement: Any lab studies that have been ordered have been reviewed, and results considered in the medical decision making process. - Radiology CXR Radiology Interpretation Completed By: ED Physician Summary of Radiographic Findings: No acute process. ED physician has interpreted this report. Pending official read. - EKG 19:30 Cardiac Rate: Bradycardia Summary of EKG Findings: EKG at 19:30 shows regular rhythm, sinus bradycardia at 46 bpm, second degree AVB type II, no STEMI. Re-Evaluation - Re-Evaluation First Eval Re-Evaluation Time: 20:35 Comment: We discussed plan for admission following results. Course/Dx - Course Course Of Treatment: This patient is a 73 year old F presenting to ED with a chief complaint of SOB 5 days ago which is exacerbated with exertion without any accompanying fever, dizziness, lightheadedness, cough, fever, chest pain, nausea, vomiting, or loss of appetite. She stopped Metoprolol a week ago. Upon physical exam, the patient was bradycardic. EKG at 19:30 shows regular rhythm, sinus bradycardia at 46 bpm, second degree AVB type II, no STEMI. Laboratory results show a BUN/Creatinine ratio of 24.4 H, an AST of 12 L and a B- Natriuretic peptide level of 290 H. Chest XR shows no acute process, per my interpretation. I talked to Dr. Morales concerning the patient's case at 20:26 and he recommends admission. I spoke to Dr. Barroso, hospitalist, at 20:32. He accepts the patient for admission. I diagnosed the patient as having a 2nd degree AV block, type II. - Diagnoses Provider Diagnoses: Second degree AV block, Mobitz type II - Physician Notifications Discussed Care of Patient With: Jerzy Morales - Cardiology Time Discussed With Above Provider: 20:26 Instructed by Provider To: Other - Talked to Dr. Morales concerning the patient' s case at 20:26 and he recommends admission. I talked to Dr. Barroso, hospitalist , at 20:32. He accepts the patient for admission. Discharge ED - Sign-Out/Discharge Documenting (check all that apply): Patient Departure - Accepted for admission Patient Received Moderate/Deep Sedation with Procedure: No - Discharge Plan Condition: Stable Disposition: ADMITTED TO [facility] - Billing Disposition and Condition Condition: STABLE Disposition: Admitted to [facility] - Attestation Statements Document Initiated by Lizz: Yes Documenting Scribe: Fahad Hill Provider For Whom Lizz is Documenting (Include Credential): Arley Valdez MD. Scribe Attestation: Fahad Loredo, scribed for Arley Valdez MD. on 12/24/18 at 1911. Scribe Documentation Reviewed: Yes Provider Attestation: The documentation as recorded by the scribe, Fahad Hill accurately reflects the service I personally performed and the decisions made by me, Arley Valdez MD. Status of Scribe Document: Viewed
[2018-12-23] MEDS ORDERED: Alteplase* 100 MG VIAL IV ONE ×2 (20:26)
[2018-12-23] MEDS ORDERED: hydrALAZINE IV* 20 MG/ML VIAL IV SLOW PU PRN (21:39)
[2018-12-23] MEDS ORDERED: Insulin LISPRO* FOR INSULIN PUMP SUBCUT SCH (23:00)
[2018-12-23] MEDS: amLODIPine TAB* 5 MG PO SCH (23:15)
[2018-12-23] MEDS: Mometasone/Formoter 200/5 MDI INH SCH (23:55)
--- NOTE | 2018-12-23 23:59 | HP ---
CC: Dr. Sebastian Kaur; Dr. Rohith Perry; Dr. Jacome, Cardiology. ADMISSION HISTORY AND PHYSICAL: DATE OF ADMISSION: PRIMARY CARE PROVIDER: Dr. Kaur. PRIMARY RODDING MACHINE TENDER: Dr. Jacome. PRIMARY SCHOOL PROGRAM DIRECTOR: Dr. Perry. CHIEF COMPLAINT: Shortness of breath. HISTORY OF PRESENT ILLNESS: This is a 73-year-old female with past medical history of type 1 diabete s, on an insulin pump, hypertension, coronary artery disease, status post 3 stents with a known occlu neha of RCA with good collaterals, diabetic neuropathy, diabetic retinopathy, COPD, asthma, on chroni c steroids, was sent by her supervisor plastics due to bradycardia. The patient stated that she has been nino ving shortness of breath for the last 5 days. On , she went and got an EKG done and then was called by her supervisor plastics to come to the ER for an evaluation of her low heart rate. The patient s tated that her shortness of breath is worse with any kind of exertion including walking, but is not a ccompanied by any chest pain, any cough, any fever or chills, any nausea or vomiting. She did have 1 episode of loose bowel movement today, but she feels fine. No abdominal pain, no dizziness or light headedness, or any vision loss or numbness or tingling. PAST MEDICAL HISTORY: As mentioned, type 1 diabetes, on an insulin pump, diabetic neuropathy, diabet ic retinopathy, history of hypertension, coronary artery disease, status post 3 stents with an [place] in 1999, and a known RC occlusion of 95% with good collaterals, history of hypertension, COPD/asthma, on chronic steroids for many years, history of gastroesophageal reflux disease, history of dyslipidemia . PAST SURGICAL HISTORY: Includes , left breast biopsy, and multiple cardiac catheterization. MEDICATIONS: Home medications: The patient is currently on: 1. Prednisone 4 mg oral daily. 2. Theophylline 300 mg oral daily. 3. Rosuvastatin 5 mg oral daily. 4. Omeprazole 40 mg oral daily. 5. Montelukast 10 mg oral daily. 6. Toprol XL 25 mg p.o. b.i.d. 7. NovoLog via insulin pump per sliding scale. 8. Furosemide 20 mg daily p.r.n. for edema. 9. Advair Diskus 500/50 one puff by inhalation twice a day. 10. Plavix 75 mg oral daily. 11. Aspirin 81 mg oral daily. 12. Ventolin HFA 2 puffs by inhalation 4 times a day p.r.n. for shortness of breath and wheezing. ALLERGIES: The patient is documented to have allergies to SULFA ANTIBIOTICS and FISH. FAMILY HISTORY: Noncontributory at her age of 73, but previous reports indicate history of cancer in her mother and heart disease in her father. SOCIAL HISTORY: The patient denies any smoking, alcohol, or drug use. She is retired, lives alone a nd is full code unless she is going to be a vegetative. Her son Real Alvarado is her surrogate neftali quinnr. I have notified him saying that the patient has been admitted to the hospital. REVIEW OF SYSTEMS: A 14-point review of systems does not reveal any information other than what is m entioned in the HPI. PHYSICAL EXAMINATION GENERAL: The patient is awake, alert, and oriented x3. Does not appear to be in any acute respirato ry distress. VITAL SIGNS: In the ER, BP was noted to be 182/139, heart rate 47, respiration rate 21, saturating 9 9% on room air, temperature was noted to be 99.1. HEAD AND NECK: Atraumatic and normocephalic. Bilateral pupils reactive. Oral mucosa was moist. NECK: Supple. No jugular venous distention. LUNGS: Clear to auscultation bilaterally. No wheezing, rhonchi, or rales. HEART: S1 and S2, regular with bradycardia. ABDOMEN: Soft, nontender, and nondistended. EXTREMITIES: No cyanosis, clubbing, or edema. DIAGNOSTIC DATA/LAB DATA: CBC was unremarkable. Comprehensive metabolic panel was unremarkable. B -hanny was minimally elevated at 290, troponin was 0.01. LFTs were within normal limits. PA and later al chest x-ray did not show any significant changes. Official read by Radiology is still pending. EKG showed second-degree AV block with heart rate of 46 when compared to her previous EKG which showe d sinus rhythm at 81 beats per minute without any ST elevation. IMPRESSION: This is a 73-year-old female here with shortness of breath likely secondary to symptomat ic bradycardia. ASSESSMENT: 1. Symptomatic bradycardia with second-degree atrioventricular block, Dr. Morales has been consulted and the patient will be monitored on telemetry for possible pacemaker placement. Cardiology is consu lted who will direct further care. 2. History of coronary artery disease. We will hold aspirin and Plavix in light of pacemaker placem ent. 3. History of diabetes. We will continue her on her insulin pump. We will start the patient on a.c . and h.s. fingersticks and the patient is capable of adjusting her pump based on her sugars. 4. History of hypertension. The patient has some elevated blood pressure even right now. Her dose of metoprolol at home was reduced recently. We will stop the metoprolol completely in light of her b radycardia and start hydralazine p.r.n. along with amlodipine p.o. to control her blood pressure. 5. History of dyslipidemia. Restart home medication. 6. History of gastroesophageal reflux disease, restart home medication. 7. History of severe asthma, restart home medications including the prednisone. 8. DVT prophylaxis with sequential compression device. 9. Code status. The patient is a full code and the son is surrogate decision maker. [id number]/[facility] #: [id number]
[2018-12-24] MEDS: Montelukast Sodium TAB* 10 MG PO SCH ×2 (01:00→22:55)
[2018-12-24 07:21] LABS: ABS Basophils 0.1 10^3/ul (0-0.2); ABS Eosinophils 0.7 10^3/ul (0-0.6); ABS Lymphocytes 1.1 10^3/ul (1.0-4.8); ABS Monocytes 0.8 10^3/ul (0-0.8); ABS Neutrophils 6.7 10^3/ul (1.5-7.7); Eosinophil % 7.1 %; Hematocrit 38 % (35-47); Hemoglobin 12.4 g/dL (12.0-16.0); Lymphocyte % 12.2 %; Mean Corpuscular HGB Conc 33 g/dL (31-36); Mean Corpuscular Hemoglobin 29 pg (27-31); Mean Corpuscular Volume 87 fL (80-97); Platelet Count 249 10^3/uL (150-450); Red Blood Count 4.33 10^6 /uL (3.70-4.87); Red Cell Distribution Width 14 % (10-15); White Blood Count 9.4 10^3/uL (3.5-10.8)
[2018-12-24 07:39] LABS: BUN/Creatinine Ratio 19.7 (8-20); Calcium 8.5 mg/dL (8.6-10.3); EGFR African American 90.3 (>60); EGFR Non-African American 74.6 (>60); Potassium 3.6 mmol/L (3.5-5.0)
[2018-12-24] MEDS: Mometasone/Formoter 200/5 MDI INH SCH ×3 (07:54→22:54)
[2018-12-24] MEDS ORDERED: Insulin ASPART (NF) 1 UNIT SUBCUT SCH (09:00)
[2018-12-24] MEDS: amLODIPine TAB* 5 MG PO SCH (09:25)
[2018-12-24] MEDS: predniSONE TAB* 1 MG PO SCH (09:25)
[2018-12-24] MEDS: Pantoprazole TAB * 40 MG TAB PO SCH (09:26)
[2018-12-24] MEDS: Theophylline TAB* 300 MG PO SCH (09:26)
[2018-12-24] MEDS: Aspirin 81 mg CHEW TAB* 81 MG TAB.CHEW PO SCH (14:20)
--- NOTE | 2018-12-24 15:18 | PN ---
Subjective Date of Service: 12/24/18 Interval History: Ms. Elder reports feeling well today. She offers no complaints. She denies having any symptoms yesterday and states she only presented to the ED because she was told to by her chief ii dispatcher. Her family notes that she has appeared dyspneic and generally weak over the last couple months, though the patient denies this. She also denies and CP, N/V, dizziness, or syncope. No concerns from nursing. Family History: Unchanged from Admission Social History: Unchanged from Admission Past Medical History: Unchanged from Admission Objective Active Medications: Amlodipine Besylate (Norvasc Tab*) 10 mg PO DAILY AMBER Aspirin (Aspirin 81 Mg Chew Tab*) 81 mg PO DAILY AMBER Atorvastatin Calcium (Lipitor*) 10 mg PO Q48HR AMBER; Protocol Hydralazine HCl (Apresoline Iv*) 5 mg IV SLOW PU Q6H PRN Systolic Bp Greater Than:160 Insulin Human Lispro (Humalog*) 0 units SUBCUT .SEE PROTOCOL AMBER; Protocol Mometasone Furoate/Formoterol Fumar (Dulera 200/5 Mdi*) 2 puff INH BID AMBER Montelukast Sodium (Singulair Tab*) 10 mg PO BEDTIME AMBER Pantoprazole Sodium (Protonix Tab*) 40 mg PO DAILY AMBER Prednisone (Deltasone Tab*) 4 mg PO DAILY AMBER Theophylline (Isma Dur*) 300 mg PO DAILY AMBER Vital Signs - 8 hr 12/24/18 12/24/18 12/24/18 07:15 07:54 08:00 Temperature 98.4 F Pulse Rate 49 52 Respiratory 16 18 16 Rate Blood Pressure 157/40 (mmHg) O2 Sat by Pulse 97 94 Oximetry 12/24/18 11:35 Temperature 97.9 F Pulse Rate 47 Respiratory 18 Rate Blood Pressure 159/40 (mmHg) O2 Sat by Pulse 98 Oximetry Oxygen Devices in Use Now: None Appearance: Elderly female laying in bed in NAD Eyes: No Scleral Icterus Ears/Nose/Mouth/Throat: Mucous Membranes Moist Neck: NL Appearance and Movements; NL JVP, Trachea Midline Respiratory: Symmetrical Chest Expansion and Respiratory Effort, Clear to Auscultation Cardiovascular: NL Sounds; No Murmurs; No JVD, RRR Abdominal: NL Sounds; No Tenderness; No Distention Extremities: No Edema Neurological: Alert and Oriented x 3 Lines/Tubes/Other Access: Clean, Dry and Intact Peripheral IV Nutrition: Taking PO's Result Diagrams: 12/24/18 06:49 12/24/18 06:49 Assess/Plan/Problems-Billing Assessment: Ms. Elder is a 73 yo F with PMH of DM1, HTN, CAD with 3 stents, COPD, GERD, and asthma; who presented to the ED by her chief ii dispatcher d/t concerns r/t an outpatient EKG and was found to have bradycardia. - Patient Problems (1) Bradycardia Code(s): R00.1 - BRADYCARDIA, UNSPECIFIED Comment: - Asymptomatic, noted on outpatient EKG - Appreciate Cardiology consult - Hold metoprolol - Plan for pacer placement tomorrow (2) HTN (hypertension) Code(s): I10 - ESSENTIAL (PRIMARY) HYPERTENSION Comment: - Hypertensive with SBP into the 200s on admission, now improved with SBP in 150s - Holding metoprolol in the setting of bradycardia which she can likely resume on d/c, but is not ideal given advanced COPD - Continue amlodipine, hydralazine PRN (3) CAD (coronary artery disease) Code(s): I25.10 - ATHSCL HEART DISEASE OF [place] CORONARY ARTERY W/O ANG PCTRS Comment: - No acute concerns - [place] in 1999 with 3 stents placed; known 95% RC occlusion with good collaterals - Hold Plavix and metoprolol - Continue atorvastatin, aspirin (4) Type 1 diabetes mellitus Comment: - With neuropathy and retinopathy - Reportedly secondary to measles infection as a child - Continue insulin pump on home settings (5) COPD (chronic obstructive pulmonary disease) Code(s): J44.9 - CHRONIC OBSTRUCTIVE PULMONARY DISEASE, UNSPECIFIED Comment: - Family reports dyspnea, though this is not particularly evident on exam and is likely just r/t advanced COPD, but no acute respiratory concerns - Continue Singulair, Dulera, theophylline, prednisone (6) Dyslipidemia Code(s): E78.5 - HYPERLIPIDEMIA, UNSPECIFIED Comment: - Continue atorvastatin (7) GERD (gastroesophageal reflux disease) Code(s): K21.9 - GASTRO-ESOPHAGEAL REFLUX DISEASE WITHOUT ESOPHAGITIS Comment : - Continue pantoprazole (8) DVT prophylaxis Comment: - SCDs only in the setting of pacer placement tomorrow (9) Full code status Code(s): Z78.9 - OTHER SPECIFIED HEALTH STATUS Comment: Status and Disposition: Inpatient. Anticipate d/c home when medically stable. Attending: Maribell Nugent
--- NOTE | 2018-12-24 16:11 | CONSULT ---
Subjective Date of Service: 12/24/18 Interval History: Date of admission 12/23/2018 Date of consult 12/24/2018 Service: Hospitalist PCP: Dr. Kaur Piano Regulator Inspector: Dr. Jacome CC: dyspnea Reason for consult: Heart block. HPI: Sherry Elder is a 73 year old woman with a past medical history as below. She has been intermittent lightheadedness, probable fall vs. less likely syncope in October with head laceration and worsening dyspnea especially the last 2 -3 weeks. I received a call from her regular learning facilitator Dr. Jacome on Tuesday12/23/2018 as patient was found with mobitz 2 heart block and patient was recommended to come to ER for admission and pacemaker placement. There was an EKG from 06/25/2018 that showed same finding as this so it appears she has been intermittently going in and out of this heart block. Recently her beta- tamra dose was decreased to 12.5 mg toprol daily and her BP was elevated after this. She is currently in bed and asymptomatic. She has no chest discomfort but does have intermittent palpitations. Allergies: Sulfa- hives Pmhx: Longstanding DM 1 on insulin pump CAD s/p IWMI, multiple PCI HTN dyslipidemia Reactive airway disease on chronic steroids diabetic retinopathy, neuropathy bilateral feet. Seizure Disorder Surgical Hx: Section Tonsillectomy Biopsy - (02/2007) left breast. benign FH: Father: due to HI - (age 73 Years). Mother: due to Cancer, Breast - (age 83 Years); Cancer, Bladder. SH: , no tobacco, excessive alcohol or drugs Medications Active Medications: Amlodipine Besylate (Norvasc Tab*) 10 mg PO DAILY [facility] Last Admin: 12/24/18 09:25 Dose: 10 mg Aspirin (Aspirin 81 Mg Chew Tab*) 81 mg PO DAILY [facility] Last Admin: 12/24/18 14:20 Dose: 81 mg Atorvastatin Calcium (Lipitor*) 10 mg PO Q48HR [facility]; Protocol Hydralazine HCl (Apresoline Iv*) 5 mg IV SLOW PU Q6H PRN PRN Reason: Systolic Bp Greater Than:160 Insulin Human Lispro (Humalog*) 0 units SUBCUT .SEE PROTOCOL [facility]; Protocol Mometasone Furoate/Formoterol Fumar (Dulera 200/5 Mdi*) 2 puff INH BID [facility] Last Admin: 12/24/18 07:54 Dose: 2 puff Montelukast Sodium (Singulair Tab*) 10 mg PO BEDTIME [facility] Last Admin: 12/24/18 01:00 Dose: 10 mg Pantoprazole Sodium (Protonix Tab*) 40 mg PO DAILY [facility] Last Admin: 12/24/18 09:26 Dose: 40 mg Prednisone (Deltasone Tab*) 4 mg PO DAILY [facility] Last Admin: 12/24/18 09:25 Dose: 4 mg Theophylline (Isma Dur*) 300 mg PO DAILY [facility] Last Admin: 12/24/18 09:26 Dose: 300 mg Home Medications: Albuterol HFA INHALER* [Ventolin HFA Inhaler*] 2 puff INH QID PRN 10/06/12 [ History Confirmed 12/23/18] Clopidogrel TAB* [Plavix TAB*] 75 mg PO DAILY 10/06/12 [History Confirmed ] Furosemide TAB* [Lasix TAB*] 20 mg PO DAILY PRN 10/06/12 [History Confirmed ] Montelukast Sodium TAB* [Singulair 10 MG TAB*] 10 mg PO DAILY 10/06/12 [History Confirmed 12/23/18] Aspirin EC TAB* [Ecotrin EC Low Dose 81 MG*] 81 mg PO DAILY 01/23/15 [History Confirmed 12/23/18] Fluticasone-Salmeterol 500-50* [Advair Diskus 500-50*] 1 puff INH BID 01/23/15 [ History Confirmed 12/23/18] Metoprolol Succinate XL TAB* [Toprol XL TAB*] 12.5 mg PO daily Omeprazole [Omeprazole 40 MG] 40 mg PO DAILY 09/20/16 [History Confirmed ] Theophylline [Theophylline ER] 300 mg PO DAILY 09/20/16 [History Confirmed 12/23] Rosuvastatin Calcium [Crestor] 5 mg PO DAILY 06/09/17 [History Confirmed ] predniSONE TAB* [Deltasone 1 MG TAB*] 4 mg PO DAILY 06/09/17 [History Confirmed 12/23/18] Humalog Insulin by insulin pump Review of Systems - Measurements Intake and Output: Intake and Output Last 24 Hours 12/22/18 12/23/18 12/24/1823/19 06:59 06:59 06:59 06:59 Intake Total 540 480 Output Total 0 Balance 540 480 Weight 169 lb 12.8 oz Intake: Oral 540 480 Output: Urine 0 Other: Estimated Void Large # Voids 1 - Review of Systems Constitutional Symptoms: Negative: Weight Gain, Weight Loss Dermatology: Negative: Rash, Skin Lesions HEENT: Negative: Change in Hearing, Vertigo Eyes: Negative: Change in Vision, Double Vision Thyroid: Negative: Weight Loss, Weight Gain Pulmonary: Positive: Shortness of Breath, Exercise Intolerance Negative: Wheezing, Respiratory Distress, Asthma, Home Oxygen Cardiology: Positive: Shortness of Breath, Palpitations, Faintness Negative: Chest Pain, Swelling of Ankles, Peripheral Vascular Dis, Edema, Syncope, Claudication, Paroxysmal Nocturnal Dyspnea, Orthopnea Gastroenterology: Negative: Abdominal Pain, Nausea, Vomiting, Anorexia, Blood in Stools, Haematemesis, Melena Genital - Urinary: Negative: Dysuria, Hematuria Musculoskeletal: Negative: Joint Pain, Joint Stiffness Endocrinology: Negative: Diabetic Foot Ulcers, Polydipsia, Polyuria Hematologic/Lymphatic: Positive: Use of Antiplatelet Drugs Negative: Use of Anticoagulant Neurology: Positive: Dizziness Negative: Hx of Stroke\TIA, Hx Seizures Psychiatry: Negative: Unusual Anxiety, Suicidal Ideation Allergic/Immunologic: Negative: Hx HIV, Immunocompromise Review of Systems Statement: All other review of systems negative, unless stated above. Objective Vital Signs: Temp Pulse Resp BP Pulse Ox 98.3 F 49 16 155/40 97 12/24/18 15:30 12/24/18 15:30 12/24/18 15:30 12/24/18 15:30 12/24/18 15:30 Oxygen Devices in Use Now: None Appearance: nad, pleasant Ears/Nose/Mouth/Throat: Clear Oropharnyx, Mucous Membranes Moist Neck: NL Appearance and Movements; NL JVP Respiratory: Symmetrical Chest Expansion and Respiratory Effort, Clear to Auscultation Cardiovascular: No Edema, - - bradycardia, regular, no significant murmur Abdominal: NL Sounds; No Tenderness; No Distention Extremities: No Edema Skin: No Rash or Ulcers Neurological: Alert and Oriented x 3 Laboratory Results: 12/24/18 06:49 12/24/18 06:49 Total Bilirubin 0.50 mg/dL (0.2-1.0) 12/23/18 19:47 AST 12 U/L (13-39) L 12/23/18 19:47 ALT 14 U/L (7-52) 12/23/18 19:47 Alkaline Phosphatase 45 U/L (34-104) 12/23/18 19:47 B-Natriuretic Peptide 290 pg/mL (<=100) H 12/23/18 19:47 Total Protein 6.6 g/dL (6.4-8.9) 12/23/18 19:47 Albumin 3.8 g/dL (3.2-5.2) 12/23/18 19:47 Globulin 2.8 g/dL (2-4) 12/23/18 19:47 Albumin/Globulin Ratio 1.4 (1-3) 12/23/18 19:47 12/23/18 19:47 Troponin I 0.01 Diagnostic Imaging: Previous HI - (1999) inferior : cardiac cath: distal lesion, treated medically Coronary Artery Disease (CAD) - Three vessel CAD: 06/22/2001: PTCA stent placement to the middle third of the cx PTCA first marginal branch of the cx. 12/22/2001: PTCA with stent placement to the proximal third of the cx 04/20/02 Cath patent LXC Stent, 100% RCA, LAD 50%. inferolateral akinesis w/ EF 50%. 01/03/2004: PTCA with stent placement to the 75% lesion in the middle third of the LAD w/evidence of patent stents to the cx. LAD mid 50%. bleeding at cath site, transfused 2upc. Cypher Stent. Coronary Artery Disease (CAD) - (12/14/2006) patent stents. occluded RCA with collaterals. ef 60% with inferoapical akinesis. Stress Test - (06/10/2017) constellation of findings is most consistent with an inferior wall infarct with janeen-infarct ischemia at the posterior aspect of the septum. Region of janeen- infarct ischemia is increased over the 2014 exam. Normal range, estimated left ventricular ejection fraction and diastolic volume. Echocardiogram - (06/27/2017) LV cavity is normal in size. Mild concentric LV hypertrophy. Normal global wall motion. EF of 60-65%. Grade l (impaired) diastolic dysfunction. LA is mildly dilated. RA is slightly dilated. Sclerosis of the aortic valve. Trace mitral regurgitation. Moderate calcification of the mitral valve annulus. Moderately restricted mitral valve leaflets. Mild to moderate MS. Similar to December 2014. sigmoid septum. 12/23/18 CXR IMPRESSION: NO EVIDENCE FOR ACTIVE CARDIOPULMONARY DISEASE. EKG Data: 06/01/2017 EKG: NSR 86 bpm, old IWMI 06/25/2018 ekg NSR ~ 100 bpm, 2:1 heart block with short TX interval and evidence of prior inferior wall HI most likely a mobitz 2 block. 10/04/2018: NSR 81 bpm, Old IWMI EKG 12/23/2018: sinus tachycardia ~ 100 bpm poor r wave progression,, 2:1 heart block with periods of conduction, short TX interval, no TX prolongation most consistent with a mobitz 2 block. telemetry as of this AM was mostly 2:1 heart block Assessment/Plan Patient with symptomatic second degree, mobitz 2 AV block without a reversible cause (toprol just decreased recently to 12.5 mg po daily from 25 mg po bid) and a beta-tamra is needed to treat her known ischemic heart disease. - Plan for pacemaker 12/25/[address] Castanon who was notified, NPO after midnight made (ordered) - Give one dose SQ heparin DVT prophylaxis now (ordered) - Can restart her prior toprol 25 mg po bid after pacemaker placed which should help her blood pressure. Thank you for allowing me to participate in the cardiovascular care of this patient. Please do not hesitate to contact me with questions or concerns.
[2018-12-24] MEDS ORDERED: Heparin VIAL(*) 5000 UNITS/ML VIAL (FIVE THOUSAND) SUBCUT ONE (18:00)
[2018-12-24] MEDS ORDERED: Atorvastatin* 10 MG TAB PO SCH (21:00)
[2018-12-24] MEDS: Atorvastatin* 10 MG TAB PO SCH (22:56)
[2018-12-25 02:11] LABS: Albumin 3.6 g/dL (3.2-5.2); Albumin/Globulin Ratio 1.3 (1-3); BUN/Creatinine Ratio 20.9 (8-20); Calcium 8.7 mg/dL (8.6-10.3); EGFR African American 78.3 (>60); EGFR Non-African American 64.7 (>60); Globulin 2.7 g/dL (2-4); Magnesium 2.2 mg/dL (1.9-2.7); Phosphorus 2.5 mg/dL (2.5-5.0); Potassium 3.7 mmol/L (3.5-5.0); Total Bilirubin 0.6 mg/dL (0.2-1.0); Total Protein 6.3 g/dL (6.4-8.9)
[2018-12-25] MEDS: hydrALAZINE IV* 20 MG/ML VIAL IV SLOW PU PRN ×2 (04:15→23:11)
[2018-12-25] MEDS ORDERED: Ondansetron INJ* 2 MG/ML VIAL IV ONE (05:05)
[2018-12-25 05:25] LABS: ABS Basophils 0.1 10^3/ul (0-0.2); ABS Eosinophils 0.6 10^3/ul (0-0.6); ABS Lymphocytes 1.3 10^3/ul (1.0-4.8); ABS Monocytes 1.1 10^3/ul (0-0.8); Eosinophil % 4.4 %; Hematocrit 39 % (35-47); Hemoglobin 12.6 g/dL (12.0-16.0); Lymphocyte % 9.9 %; Mean Corpuscular HGB Conc 33 g/dL (31-36); Mean Corpuscular Hemoglobin 28 pg (27-31); Mean Corpuscular Volume 86 fL (80-97); Mean Platelet Volume 7.8 fL (7.4-10.4); Platelet Count 247 10^3/uL (150-450); Red Blood Count 4.48 10^6 /uL (3.70-4.87); Red Cell Distribution Width 14 % (10-15); White Blood Count 13.1 10^3/uL (3.5-10.8)
[2018-12-25 05:29] LABS: INR 1.05 (0.82-1.09)
[2018-12-25 05:40] LABS: BUN/Creatinine Ratio 20.2 (8-20); Calcium 8.6 mg/dL (8.6-10.3); EGFR African American 70.6 (>60); EGFR Non-African American 58.4 (>60); Potassium 3.8 mmol/L (3.5-5.0)
[2018-12-25] MEDS: Mometasone/Formoter 200/5 MDI INH SCH ×2 (07:18→19:40)
[2018-12-25] MEDS ORDERED: ceFAZolin 2 GM PREMIX in ORs 2 GM/50 ML BAG IVPB ONE (08:29)
[2018-12-25] MEDS ORDERED: ceFAZolin 1 GM/10 ML flush(*) SYRINGE for pocket flush (cardiology) FLUSH ONE (08:29)
[2018-12-25] MEDS ORDERED: Diazepam TAB(*) 5 MG PO ONE (08:29)
[2018-12-25] MEDS ORDERED: NS 0.9% 1000 ML** 1,000 ML IV SCH (08:30)
[2018-12-25] MEDS ORDERED: Influenza VAC *QUAD* 2019-20* 0.5 ML SYRINGE IM ONE (09:00)
[2018-12-25] MEDS: Clopidogrel TAB* 75 MG PO SCH (10:39)
[2018-12-25] MEDS: Theophylline TAB* 300 MG PO SCH (10:39)
[2018-12-25] MEDS: amLODIPine TAB* 5 MG PO SCH (10:39)
[2018-12-25] MEDS: Pantoprazole TAB * 40 MG TAB PO SCH (10:40)
[2018-12-25] MEDS: predniSONE TAB* 1 MG PO SCH (10:40)
[2018-12-25] MEDS: Aspirin 81 mg CHEW TAB* 81 MG TAB.CHEW PO SCH (10:40)
[2018-12-25] MEDS ORDERED: fentaNYL* 50 MCG/ML 2 ML VIAL (100 MCG VIAL) ONE (11:22)
[2018-12-25] MEDS ORDERED: Lidocaine 1% INJ* 10 MG/ML 30 ML SDV ONE (11:23)
[2018-12-25] MEDS ORDERED: Midazolam* 1 MG/ML 5 ML VIAL (5 MG) ONE (11:23)
--- NOTE | 2018-12-25 15:16 | PN ---
Subjective Date of Service: 12/25/18 Interval History: Ms. Elder is feeling well this morning. She reports not sleeping well overnight because she was woken up multiple times. Otherwise, she has no complaints. She denies CP, SOB, N/V, dizziness. No concerns from nursing. Family History: Unchanged from Admission Social History: Unchanged from Admission Past Medical History: Unchanged from Admission Objective Active Medications: Amlodipine Besylate (Norvasc Tab*) 10 mg PO DAILY [facility] Aspirin (Aspirin 81 Mg Chew Tab*) 81 mg PO DAILY [facility] Atorvastatin Calcium (Lipitor*) 10 mg PO Q48HR [facility]; Protocol Clopidogrel Bisulfate (Plavix Tab*) 75 mg PO DAILY [facility] Hydralazine HCl (Apresoline Iv*) 5 mg IV SLOW PU Q4H PRN Systolic Bp Greater Than:160 Sodium Chloride (Ns 0.9% 1000 Ml) 1,000 mls @ 75 mls/hr IV PER RATE [facility] Cefazolin Sodium 1 gm/ Sodium (Chloride) 50 mls @ 200 mls/hr IVPB Q8H [facility] Insulin Human Lispro (Humalog*) 0 units SUBCUT .SEE PROTOCOL [facility]; Protocol Mometasone Furoate/Formoterol Fumar (Dulera 200/5 Mdi*) 2 puff INH BID [facility] Montelukast Sodium (Singulair Tab*) 10 mg PO BEDTIME [facility] Pantoprazole Sodium (Protonix Tab*) 40 mg PO DAILY [facility] Prednisone (Deltasone Tab*) 4 mg PO DAILY [facility] Theophylline (Isma Dur*) 300 mg PO DAILY [facility] Vital Signs - 8 hr 12/25/18 12/25/18 12/25/18 07:40 08:00 10:48 Temperature 98.1 F Pulse Rate 53 Respiratory 16 16 18 Rate Blood Pressure 152/38 (mmHg) O2 Sat by Pulse 98 Oximetry 12/25/18 12/25/18 12/25/18 12:26 12:40 12:56 Temperature 98 F Pulse Rate 92 99 Respiratory 16 16 Rate Blood Pressure 129/57 142/49 (mmHg) O2 Sat by Pulse 96 96 97 Oximetry 12/25/18 12/25/18 12/25/18 13:16 13:29 13:30 Temperature Pulse Rate 93 95 Respiratory 18 18 16 Rate Blood Pressure 145/48 114/87 (mmHg) O2 Sat by Pulse 95 93 Oximetry 12/25/18 12/25/18 13:58 15:01 Temperature Pulse Rate 96 93 Respiratory 18 16 Rate Blood Pressure 141/44 148/46 (mmHg) O2 Sat by Pulse 94 94 Oximetry Oxygen Devices in Use Now: None Appearance: Elderly female laying in bed in NAD Ears/Nose/Mouth/Throat: Mucous Membranes Moist Neck: NL Appearance and Movements; NL JVP, Trachea Midline Respiratory: Symmetrical Chest Expansion and Respiratory Effort, Clear to Auscultation Cardiovascular: NL Sounds; No Murmurs; No JVD, RRR Abdominal: NL Sounds; No Tenderness; No Distention Extremities: No Edema Neurological: Alert and Oriented x 3 Lines/Tubes/Other Access: Clean, Dry and Intact Peripheral IV Result Diagrams: 12/25/18 05:15 12/25/18 05:15 Assess/Plan/Problems-Billing Assessment: Ms. 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 - Patient Problems (1) Bradycardia Code(s): R00.1 - BRADYCARDIA, UNSPECIFIED Comment: - Asymptomatic, noted on outpatient EKG - EKG read by Contract Preparer as 2:1 heart block, Mobitz 2 - Appreciate Cardiology consult - Hold metoprolol; will restart this after pacer placement per Cardiology - Plan for pacer placement today (2) HTN (hypertension) Code(s): I10 - ESSENTIAL (PRIMARY) HYPERTENSION Comment: - Normotensive, SBP 110-140s - Holding metoprolol in the setting of bradycardia - Continue amlodipine, hydralazine PRN (3) CAD (coronary artery disease) Code(s): I25.10 - ATHSCL HEART DISEASE OF [place] CORONARY ARTERY W/O ANG PCTRS Comment: - No acute concerns - AR in 1999 with 3 stents placed; known 95% RC occlusion with good collaterals - Hold Plavix and metoprolol - Continue atorvastatin, aspirin (4) Type 1 diabetes mellitus Comment: - With neuropathy and retinopathy - Reportedly secondary to measles infection as a child - Continue insulin pump on home settings (5) COPD (chronic obstructive pulmonary disease) Code(s): J44.9 - CHRONIC OBSTRUCTIVE PULMONARY DISEASE, UNSPECIFIED Comment: - Family reports dyspnea, though this is not particularly evident on exam and is likely just r/t advanced COPD, but no acute respiratory concerns - Continue Singulair, Dulera, theophylline, prednisone (6) Dyslipidemia Code(s): E78.5 - HYPERLIPIDEMIA, UNSPECIFIED Comment: - Continue atorvastatin (7) GERD (gastroesophageal reflux disease) Code(s): K21.9 - GASTRO-ESOPHAGEAL REFLUX DISEASE WITHOUT ESOPHAGITIS Comment : - Continue pantoprazole (8) DVT prophylaxis Comment: - SCDs only in the setting of pacer placement today (9) Full code status Code(s): Z78.9 - OTHER SPECIFIED HEALTH STATUS Comment: Status and Disposition: Inpatient. Pacer placement today. Anticipate d/c home when medically stable, hopefully tomorrow. Attending: Albin Tan
[2018-12-25] MEDS: ceFAZolin VIAL(*) 1 GM in NS 0.9% 50 ML* 50 ML IVPB SCH (18:23)
[2018-12-25] MEDS: Montelukast Sodium TAB* 10 MG PO SCH (21:58)
[2018-12-26] MEDS: ceFAZolin VIAL(*) 1 GM in NS 0.9% 50 ML* 50 ML IVPB SCH ×2 (02:11→09:46)
[2018-12-26] MEDS: Mometasone/Formoter 200/5 MDI INH SCH (08:06)
[2018-12-26] MEDS ORDERED: Metoprolol Succinate XL TAB* 25 MG PO SCH (09:00)
[2018-12-26] MEDS: Pantoprazole TAB * 40 MG TAB PO SCH (09:32)
[2018-12-26] MEDS: Clopidogrel TAB* 75 MG PO SCH (09:32)
[2018-12-26] MEDS: predniSONE TAB* 1 MG PO SCH (09:32)
[2018-12-26] MEDS: Aspirin 81 mg CHEW TAB* 81 MG TAB.CHEW PO SCH (09:32)
[2018-12-26] MEDS: amLODIPine TAB* 5 MG PO SCH (09:32)
[2018-12-26] MEDS: Atorvastatin* 10 MG TAB PO SCH (09:32)
[2018-12-26] MEDS: Theophylline TAB* 300 MG PO SCH (09:33)
--- NOTE | 2018-12-26 09:56 | OP ---
CC: Dr. Orlando Jacome * DATE OF OPERATION: 12/25/18 - ROOM #447 DATE OF : 45 SURGEON: Peter Castanon MD. ANESTHESIA: Local anesthesia with conscious sedation. PRE-OP DIAGNOSIS: Second-degree heart block type 2. POST-OP DIAGNOSIS: Second-degree heart block type 2. OPERATIVE PROCEDURE: Dual-chamber pacemaker implantation. ESTIMATED BLOOD LOSS: Nil. COMPLICATIONS: None. INDICATIONS: The patient is a 73-year-old female who has been followed by Dr. Jacome. She has had intermittent episodes of second-degree heart block. Recently, she has been getting more fatigued and was evaluated by Dr. Jacome and was instructed to go to the hospital for evaluation. She was found to be in second- degree heart block with a heart rate of 50 and feeling poorly. Dual- chamber pacemaker was recommended. DESCRIPTION OF PROCEDURE: The patient was brought to the procedure room in a fasting state. Informed consent had been obtained prior to the procedure. All labs were reviewed. The patient was placed supine on the procedure table. Her left deltopectoral area was cleaned and draped in the usual fashion. 1% lidocaine was used for local anesthesia. Under ultrasound guidance, the axillary vein was entered via Seldinger technique and a guidewire was placed. A second guidewire was placed in the same technique. A 3 cm incision was made in the pectoral area. Blunt dissection was carried out in the pectoral fascia. A pocket was fashioned for the pacemaker. Over the first guidewire, a 7- Thai sheath introducer was placed through which a right ventricular lead was advanced to the right ventricular septum. The right ventricular lead is a Medtronic model 5076, serial number [id number]. It had an R-wave sensitivity of 7.3, impedance 667 ohms, threshold 0.8 volts at 0.5 msec. The ventricular lead was sutured to the pectoral fascia. Over the second guidewire, a 7-Thai sheath introducer was placed through which a right atrial lead was advanced to high right atrium. The right atrial lead is a Medtronic model 5076, serial number [id number]. It had a P-wave sensitivity of 3, impedance 618 ohms, threshold 1.6 volts at 0.5 msec. The atrial lead was sutured to the pectoral fascia. The pocket was flushed. A generator was attached to the atrial ventricular lead. The generator is a [employer] model W1DR01, serial number [id number]. The device was placed in the pocket. The surgical incision was closed in 3 layers. The patient was returned to the holding area in stable condition. [id number]/[facility] #: [id number] MTDD
--- NOTE | 2018-12-26 12:06 | DS ---
CC: Dr. Sebastian Kaur; Dr. Orlando Jacome; Dr. Peter Castanon * DISCHARGE SUMMARY: DATE OF ADMISSION: 12/23/18 DATE OF DISCHARGE: 12/26/18 PRIMARY CARE PROVIDER: Dr. Sebastian Kaur. OUTPATIENT OFFICE EMPLOYEE: Dr. Orlando Jacome. ATTENDING PHYSICIAN: Dr. Trina Lester.* (DICTATED BY DORCAS GARCIA NP) PRIMARY DIAGNOSIS: 1. Second-degree heart block, status post pacemaker. SECONDARY DIAGNOSES: 1. Hypertension. 2. Coronary artery disease. 3. Diabetes mellitus type 1. 4. Chronic obstructive pulmonary disease. 5. Dyslipidemia. 6. Gastroesophageal reflux disease. STUDIES WHILE IN THE HOSPITAL: 1. Chest x-ray on 12/23/18 reads as no evidence for active cardiopulmonary disease. 2. EKG on 12/23/18 shows presumed second-degree heart block, Mobitz II with a rate of 46. 3. Chest x-ray on 12/25/18 reads as hyperinflation with mild subpleural fibrotic changes. No active cardiopulmonary disease. 3. Chest x-ray on 12/25/18 reads as status post left pacemaker placement. No appreciable pneumothorax. 4. EKG on 12/25/18 shows a 100% atrial sinus ventricular paced rhythm with a rate of 93. 5. EKG on 12/25/18 shows a 100% dual paced rhythm with a rate of 84. 6. EKG on 12/26/18 shows a 100% ventricular paced rhythm with a rate of 102. 7. EKG on 12/26/18 shows a 100% dual paced rhythm with a rate of 92. 8. Chest x-ray on 12/26/18 reveals no active cardiopulmonary disease. CONSULTATIONS WHILE IN THE HOSPITAL: 1. Dr. Morales with Cardiology on 12/24/18. PROCEDURES WHILE IN THE HOSPITAL: 1. Permanent pacemaker placement with Dr. Castanon on 12/25/18. HISTORY OF PRESENT ILLNESS AND HOSPITAL COURSE: Mr. 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 Please see the history and physical by Dr. Barroso for a complete summary of the events leading up to this hospitalization. In short, the patient did report some shortness of breath in the last few days, though recently on 12/21/18 had an EKG done at her crusher wet ground mica office. She was then called 2 days later and instructed by her crusher wet ground mica that she needed to come in to the emergency room due to EKG findings. EKG taken in the emergency room is noted above. There was concern for a second-degree heart block and so the patient was admitted by the hospitalist service. Cardiology was consulted and the patient was seen by Dr. Morales on 12/24/18. At that point, he indicated that the patient would be having a pacemaker placed the following day and that her metoprolol that was stopped on admission could be restarted after pacemaker placement. On telemetry, the patient continued to be bradycardic with mostly a 2:1 heart block. She had remained asymptomatic. On 12/25/18, the patient was taken for pacemaker placement with Dr. Castanon, and at that time, a dual-chamber Medtronic pacemaker was placed. The patient tolerated the procedure well and recovery was uneventful. She was monitored an additional night in the hospital and had multiple repeat EKGs as noted above which all showed 100% paced rhythm. I did speak with Dr. Castanon this morning who indicated that the patient was stable for discharge from his perspective with appropriate restrictions, prophylactic antibiotics, and followup. On exam, the patient reports feeling well today. She offers no complaints. On exam, she has no focal neurological deficits. She is alert and oriented x4. Her heart has a regular rate and rhythm without murmurs, rubs, or gallops. Lungs have a mild expiratory wheeze, though no rhonchi or rales. She is saturating well on room air. Abdomen is soft and nontender. There is no edema. Physical exam is otherwise benign. Ms. Elder is stable for discharge today. Vital signs are as follows: Temp 99.2, heart rate 105, respiratory rate 19, oxygen saturation 96% on room air, blood pressure 156/64. DISCHARGE MEDICATIONS: New medications: 1. Amlodipine 10 mg p.o. daily. 2. Cephalexin 250 mg p.o. q.8 hours x2 days. Continued medications: 1. Advair 500/50 one puff b.i.d. 2. NovoLog subcu via insulin pump. 3. Singulair 10 mg p.o. daily. 4. Omeprazole 40 mg p.o. daily. 5. Prednisone 4 mg p.o. daily. 6. Rosuvastatin 5 mg p.o. daily. 7. Theophylline 300 mg p.o. daily. 8. Albuterol MDI 2 puffs q.i.d. p.r.n. wheezing. 9. Aspirin 81 mg p.o. daily. 10. Plavix 75 mg p.o. daily. 11. Furosemide 20 mg p.o. daily p.r.n. edema. 12. Metoprolol succinate 25 mg p.o. b.i.d. DISCHARGE PLAN: Ms. Elder will be discharged home. Activity will be as tolerated, though she has been given instructions on restrictions for her post pacemaker status. Diet will be heart healthy. Medications are noted above. The patient was started on amlodipine here in the hospital as she was noted to be quite hypertensive, and she has responded to this medication well. She will additionally need to complete 2 more days of Keflex for a total of 3 days of antibiotics following pacemaker placement. She can continue her other usual medications as noted above including her metoprolol. She will need to follow up with Dr. Castanon, and I have scheduled her an appointment for 01/03/19 at 10: 10 a.m. She additionally should follow up with her primary care provider in the next 4 to 7 days. She has been advised to return to the emergency room or the nearest hospital for any worsening of symptoms, shortness of breath, lightheadedness, dizziness, chest discomfort, high fevers, chills, night sweats , loss of consciousness, or any other worrisome signs or symptoms. DISCHARGE CONDITION: Stable. DISCHARGE DISPOSITION: Home. This is a summarized report of a complex medical history and hospital stay. For further details, please see the entire medical record. TIME SPENT: Approximately 50 minutes was spent on this discharge. DORCAS GARCIA, CHIEF WRITER [id number]/[facility] #: [id number] [facility]
[2018-12-26 12:27] VITALS: BP 134/49
[2018-12-26] MEDS ORDERED: Cephalexin CAP* 250 MG PO SCH (18:30)
== END 2018-12-26 12:34 | disposition home or self-care (01) | DRG 244 ==
LOC: ED 17:41 → MEDTELE 21:34
PROVIDERS: ADMIT Internal Medicine; ATTEND Internal Medicine
PROC: 02HK3JZ Insertion of Pacemaker Lead into Right Ventricle, Percutaneous Approach (ICD-10-PCS; 2018-12-25)
PROC: 02H63JZ Insertion of Pacemaker Lead into Right Atrium, Percutaneous Approach (ICD-10-PCS; 2018-12-25)
PROC: 0JH606Z Insertion of Pacemaker, Dual Chamber into Chest Subcutaneous Tissue and Fascia, Open Approach (ICD-10-PCS; principal; 2018-12-25 11:00)
DX: I44.1 Atrioventricular block, second degree (principal); E10.42 Type 1 diabetes mellitus with diabetic polyneuropathy; E10.319 Type 1 diabetes mellitus with unspecified diabetic retinopathy without macular edema; Z96.41 Presence of insulin pump (external) (internal); I25.10 Atherosclerotic heart disease of native coronary artery without angina pectoris; I10 Essential (primary) hypertension; E78.5 Hyperlipidemia, unspecified; G40.909 Epilepsy, unspecified, not intractable, without status epilepticus; K21.9 Gastro-esophageal reflux disease without esophagitis; R00.1 Bradycardia, unspecified; J44.9 Chronic obstructive pulmonary disease, unspecified; E78.00 Pure hypercholesterolemia, unspecified; H91.90 Unspecified hearing loss, unspecified ear; H54.62 Unqualified visual loss, left eye, normal vision right eye; K44.9 Diaphragmatic hernia without obstruction or gangrene; Z88.2 Allergy status to sulfonamides; I25.2 Old myocardial infarction; Z95.5 Presence of coronary angioplasty implant and graft; Z82.49 Family history of ischemic heart disease and other diseases of the circulatory system; Z80.3 Family history of malignant neoplasm of breast; Z80.52 Family history of malignant neoplasm of bladder; Z97.4 Presence of external hearing-aid; Z83.3 Family history of diabetes mellitus; Z91.013 Allergy to seafood; Z79.4 Long term (current) use of insulin; Z79.02 Long term (current) use of antithrombotics/antiplatelets; Z79.82 Long term (current) use of aspirin
CPT/HCPCS: 33208; 36415; 36600; 71045; 71046; 80048; 80053; 82803; 83605; 83735; 83880; 84100; 84484; 85025; 85610; 86618; 90686; 93005; 94640; 99156; 99157; 99284; A9270-GY; C1785; C1892; C1898; J0360; J0690; J1644; J2250; J2405; J3010

== ENCOUNTER 2020-09-02 19:09 | Inpatient (IN) ==
[2020-09-02] MEDS ORDERED: Dextrose 50% Syringe 50 ml 25 GM/50 ML SYRINGE ONE (19:15)
[2020-09-02] MEDS ORDERED: NS 0.9% 1000 ml BAG 1,000 ML IV ONE (19:17)
[2020-09-02] MEDS ORDERED: Dextrose 50% Syringe 50 ml 25 GM/50 ML SYRINGE IV PUSH ONE (19:20)
[2020-09-02 19:30] LABS: Hematocrit 35 % (35-47); Hemoglobin 10.9 g/dL (12.0-16.0); Mean Corpuscular HGB Conc 31 g/dL (31-36); Mean Corpuscular Hemoglobin 23 pg (27-31); Mean Corpuscular Volume 74 fL (80-97); Mean Platelet Volume 7.2 fL (7.4-10.4); Platelet Count 367 10^3/uL (150-450); Red Blood Count 4.79 10^6 /uL (3.70-4.87); Red Cell Distribution Width 20 % (10-15); White Blood Count 16.8 10^3/uL (3.5-10.8)
[2020-09-02] MEDS ORDERED: NS 0.9% 1000 ml BAG 1,000 ML IV.FLUID IV ONE (19:42)
[2020-09-02 20:05] LABS: Troponin I 0.04 ng/mL (<0.03)
[2020-09-02 20:10] LABS: ALT 9 U/L (7-52); AST 15 U/L (13-39); Albumin 3.8 g/dL (3.2-5.2); Albumin/Globulin Ratio 1.2 (1-3); Alkaline Phosphatase 51 U/L (35-149); Anion Gap 10 mmol/L (2-11); Blood Urea Nitrogen 16 mg/dL (6-24); CO2 Carbon Dioxide 22 mmol/L (22-32); Chloride 104 mmol/L (101-111); EGFR Non-African American 59.5 (>60); Globulin 3.1 g/dL (2-4); Glucose 59 mg/dL (70-100); Potassium 3.7 mmol/L (3.5-5.0); Sodium 136 mmol/L (135-145); Total Protein 6.9 g/dL (6.4-8.9)
[2020-09-02 20:15] LABS: Alcohol, S 11 mg/dL (<10)
[2020-09-02 20:18] LABS: Activated Partial Thrombo Time 37.3 seconds (26.0-38.0); INR 1.73 (0.82-1.09)
[2020-09-02 20:21] LABS: TSH Ultra Thyroid Stim Horm 2.79 mcIU/mL (0.34-5.60)
[2020-09-02 20:33] LABS: Urine Appearance Cloudy; Urine Bilirubin Negative (Negative); Urine Blood 3+ (Negative); Urine Color Yellow; Urine Glucose 2+(150 mg/dL) (Negative); Urine Ketones Trace (Negative); Urine Nitrite Negative (Negative); Urine Protein 2+(100 mg/dL) (Negative); Urine Specific Gravity 1.014 (1.002-1.030); Urine Urobilinogen Positive (Negative)
[2020-09-02 20:38] LABS: Urine Bacteria Absent (Absent); Urine Red Blood Cell 3+(>10/hpf) (Absent); Urine White Blood Cell 3+(>20/hpf) (Absent)
[2020-09-02 21:18] LABS: ABS Basophils 0.1 10^3/ul (0-0.2); ABS Eosinophils 0.1 10^3/ul (0-0.6); ABS Lymphocytes 0.8 10^3/ul (1.0-4.8); ABS Monocytes 2.2 10^3/ul (0-0.8); ABS Neutrophils 13.6 10^3/ul (1.5-7.7); Eosinophil % 0.3 %; Lymphocyte % 4.9 %
[2020-09-02] MEDS ORDERED: cefTRIAXone 1 gm/50 mL NS BAG 1 GM/50 ML BAG IV ONE (21:42)
[2020-09-02 21:48] LABS: C Reactive Protein 161.43 mg/L (<8.01)
[2020-09-02 23:16] LABS: Theophylline < 2.7 mcg/mL (10-20.0)
[2020-09-02] MEDS ORDERED: Al Hydrox/Mg Hydrox/Simet LIQ 30 ML UDC PO PRN (23:17)
[2020-09-02] MEDS ORDERED: Dextrose 50% Syringe 50 ml 25 GM/50 ML SYRINGE IV PUSH PRN (23:28)
[2020-09-02] MEDS ORDERED: Albuterol HFA INHALER 8 gm MDI INH PRN (23:38)
[2020-09-02] MEDS ORDERED: Insulin GLARGINE 100 un/ml 10 ml VIAL SUBCUT ONE (23:53)
[2020-09-03 01:58] LABS: Troponin I 0.03 ng/mL (<0.03)
[2020-09-03] MEDS: Ondansetron 4 mg VIAL 2 MG/ML 2 ml VIAL IV PRN ×2 (05:53→22:24)
[2020-09-03] MEDS: NS 0.9% 1000 ml BAG 1,000 ML IV SCH ×2 (07:00→11:01)
[2020-09-03 07:29] LABS: ABS Basophils 0.1 10^3/ul (0-0.2); ABS Eosinophils 0.1 10^3/ul (0-0.6); ABS Lymphocytes 0.8 10^3/ul (1.0-4.8); ABS Monocytes 1.6 10^3/ul (0-0.8); ABS Neutrophils 12.4 10^3/ul (1.5-7.7); Eosinophil % 0.5 %; Hematocrit 35 % (35-47); Hemoglobin 10.5 g/dL (12.0-16.0); Lymphocyte % 5.2 %; Mean Corpuscular HGB Conc 30 g/dL (31-36); Mean Corpuscular Hemoglobin 23 pg (27-31); Mean Corpuscular Volume 76 fL (80-97); Mean Platelet Volume 7.5 fL (7.4-10.4); Platelet Count 290 10^3/uL (150-450); Red Blood Count 4.55 10^6 /uL (3.70-4.87); Red Cell Distribution Width 20 % (10-15); White Blood Count 14.9 10^3/uL (3.5-10.8)
[2020-09-03 07:33] LABS: Blood Urea Nitrogen 13 mg/dL (6-24); Calcium 8.2 mg/dL (8.6-10.3); Chloride 109 mmol/L (101-111); EGFR African American 100.4 (>60); EGFR Non-African American 82.9 (>60); Glucose 228 mg/dL (70-100); Potassium 4.2 mmol/L (3.5-5.0); Sodium 135 mmol/L (135-145)
[2020-09-03 07:39] LABS: Anion Gap 12 mmol/L (2-11); CO2 Carbon Dioxide 14 mmol/L (22-32)
[2020-09-03] MEDS ORDERED: Insulin GLARGINE 100 un/ml 10 ml VIAL SUBCUT SCH (09:00)
[2020-09-03] MEDS ORDERED: Aspirin EC 81 mg TAB.EC (enteric coated) PO SCH (09:00)
[2020-09-03] MEDS: Mometasone/Formoter 200/5 MDI INH SCH ×2 (10:02→19:46)
[2020-09-03 16:39] LABS: Salicylate < 2.50 mg/dL (<30)
[2020-09-03] MEDS ORDERED: Insulin GLARGINE 100 un/ml 10 ml VIAL SUBCUT ONE (18:54)
[2020-09-03 18:58] LABS: Calcium 8.3 mg/dL (8.6-10.3); EGFR African American 95.5 (>60); Potassium 4.4 mmol/L (3.5-5.0)
[2020-09-03] MEDS: cefTRIAXone 1 gm/50 mL NS BAG 1 GM/50 ML BAG IVPB SCH (21:33)
[2020-09-03] MEDS ORDERED: NS 0.9% 500 ml BAG 500 ML IV ONE (22:14)
[2020-09-04] MEDS ORDERED: NS 0.9% 1,000 ML IV SCH (01:45)
[2020-09-04 04:33] LABS: Hematocrit 32 % (35-47); Hemoglobin 9.9 g/dL (12.0-16.0); Mean Corpuscular HGB Conc 31 g/dL (31-36); Mean Corpuscular Hemoglobin 23 pg (27-31); Mean Corpuscular Volume 76 fL (80-97); Mean Platelet Volume 7.6 fL (7.4-10.4); Platelet Count 286 10^3/uL (150-450); Red Blood Count 4.23 10^6 /uL (3.70-4.87); Red Cell Distribution Width 20 % (10-15); White Blood Count 14.9 10^3/uL (3.5-10.8)
[2020-09-04 04:39] LABS: Calcium 8.2 mg/dL (8.6-10.3); EGFR African American 107.5 (>60); EGFR Non-African American 88.9 (>60); Potassium 3.8 mmol/L (3.5-5.0)
[2020-09-04 04:45] LABS: Troponin I 3.14 ng/mL (<0.03)
[2020-09-04] MEDS ORDERED: Nitroglycerin 0.4 mg/hr PATCH (10 mg) ONE (05:18)
[2020-09-04] MEDS ORDERED: Aspirin EC 81 mg TAB.EC (enteric coated) PO SCH (06:00)
[2020-09-04 07:36] LABS: Troponin I 4.79 ng/mL (<0.03)
[2020-09-04 08:18] LABS: ABS Lymphocytes 0.7 10^3/ul (1.0-4.8); ABS Monocytes 1.8 10^3/ul (0-0.8); ABS Neutrophils 12.3 10^3/ul (1.5-7.7); Eosinophil % 0.1 %
[2020-09-04] MEDS ORDERED: Heparin DRIP 25,000 UNITS BAG 25,000 UNITS/500 ML BAG IV SCH (08:30)
[2020-09-04] MEDS: Magnesium Hydroxide LIQ 30 ML UDC PO SCH ×2 (08:40→20:35)
[2020-09-04 08:52] LABS: ABS Basophils 0.1 10^3/ul (0-0.2); ABS Lymphocytes 0.5 10^3/ul (1.0-4.8); ABS Monocytes 1.8 10^3/ul (0-0.8); ABS Neutrophils 15.2 10^3/ul (1.5-7.7); Eosinophil % 0.2 %; Hematocrit 34 % (35-47); Mean Corpuscular HGB Conc 30 g/dL (31-36); Mean Corpuscular Hemoglobin 23 pg (27-31); Mean Corpuscular Volume 76 fL (80-97); Mean Platelet Volume 7.4 fL (7.4-10.4); Platelet Count 325 10^3/uL (150-450); Red Blood Count 4.42 10^6 /uL (3.70-4.87); Red Cell Distribution Width 20 % (10-15); White Blood Count 17.6 10^3/uL (3.5-10.8)
[2020-09-04] MEDS ORDERED: Polyethylene Glycol 3350 17 GM PACKET PO SCH (09:00)
[2020-09-04] MEDS ORDERED: Heparin 5000 UNITS/ML 1 mL VIAL IV PRN (09:00)
[2020-09-04] MEDS ORDERED: Insulin GLARGINE 100 un/ml 10 ml VIAL SUBCUT SCH (09:00)
[2020-09-04 09:08] LABS: Blood Urea Nitrogen 14 mg/dL (6-24); EGFR African American 102.1 (>60); EGFR Non-African American 84.4 (>60)
[2020-09-04 09:19] LABS: Creatine Kinase 294 U/L (10-223)
[2020-09-04 09:20] LABS: CKMB ng/mL 53.3 ng/mL (0.6-6.3)
[2020-09-04 09:20] LABS: Creatine Kinase 249 U/L (10-223)
[2020-09-04 09:21] LABS: CKMB ng/mL 40.9 ng/mL (0.6-6.3)
[2020-09-04 09:23] LABS: Total Iron Binding Capacity 300 mcg/dL (250-450); Transferrin 214 mg/dL (203-362)
[2020-09-04] MEDS: Mometasone/Formoter 200/5 MDI INH SCH ×3 (09:26→20:01)
[2020-09-04 09:39] LABS: Ferritin 61.9 ng/mL (11-307)
[2020-09-04 10:21] LABS: Troponin I 4.06 ng/mL (<0.03)
[2020-09-04 12:16] LABS: % Iron Saturation 7 % (15-55); Iron < 20 ug/dL (50-212); Unsaturated Iron Binding < 285 ug/dL
[2020-09-04] MEDS ORDERED: Perflutren Lipid Microsphere 3 ML VIAL ONE (13:36)
[2020-09-04 14:04] LABS: Troponin I 4.66 ng/mL (<0.03)
[2020-09-04] MEDS ORDERED: Insulin GLARGINE 100 un/ml 10 ml VIAL SUBCUT ONE ×2 (17:00→21:00)
[2020-09-04 17:02] LABS: Troponin I 4.05 ng/mL (<0.03)
[2020-09-04] MEDS: cefTRIAXone 1 gm/50 mL NS BAG 1 GM/50 ML BAG IVPB SCH (20:56)
[2020-09-04] MEDS ORDERED: Senna TAB 8.6 mg TAB PO SCH (21:00)
[2020-09-05] MEDS ORDERED: EPINEPHrine SYR 0.1MG/ML 10 ml SYRINGE ONE ×2 (04:01→08:18)
[2020-09-05 04:37] LABS: Activated Partial Thrombo Time 48.9 seconds (26.0-38.0); INR 1.58 (0.82-1.09)
[2020-09-05 04:42] LABS: Chloride 108 mmol/L (101-111); Potassium 3.8 mmol/L (3.5-5.0); Sodium 133 mmol/L (135-145)
[2020-09-05 04:45] LABS: Anion Gap 16 mmol/L (2-11); CO2 Carbon Dioxide 9 mmol/L (22-32)
[2020-09-05 04:48] LABS: ABS Basophils 0.1 10^3/ul (0-0.2); ABS Monocytes 0.6 10^3/ul (0-0.8); ABS Neutrophils 3.8 10^3/ul (1.5-7.7); Eosinophil % 0.4 %; Hematocrit 48 % (35-47); Hemoglobin 13.6 g/dL (12.0-16.0); Lymphocyte % 39.6 %; Mean Corpuscular HGB Conc 28 g/dL (31-36); Mean Corpuscular Hemoglobin 23 pg (27-31); Mean Corpuscular Volume 82 fL (80-97); Nucleated Red Blood Cells % 0.3; Platelet Count 205 10^3/uL (150-450); Red Blood Count 5.87 10^6 /uL (3.70-4.87); Red Cell Distribution Width 21 % (10-15); White Blood Count 7.6 10^3/uL (3.5-10.8)
[2020-09-05 04:49] LABS: ALT 51 U/L (7-52); AST 131 U/L (13-39); Albumin/Globulin Ratio 1.1 (1-3); Alkaline Phosphatase 77 U/L (35-149); Blood Urea Nitrogen 14 mg/dL (6-24); EGFR African American 92.6 (>60); EGFR Non-African American 76.5 (>60); Globulin 2.7 g/dL (2-4); Glucose 324 mg/dL (70-100); Phosphorus 2.8 mg/dL (2.5-5.0); Total Protein 5.7 g/dL (6.4-8.9)
[2020-09-05 05:00] LABS: Troponin I 1.96 ng/mL (<0.03)
[2020-09-05] MEDS ORDERED: Pantoprazole 80 mg in NS BAG 80 MG/250 ML BAG IV SCH (05:00)
[2020-09-05] MEDS ORDERED: Midazolam 50 MG VIAL IV DRIP 50 ML IV SCH (05:00)
[2020-09-05] MEDS ORDERED: Midazolam 2 mg/2 ml VIAL 1 mg/ml 2 ml VIAL (2 mg) IV SLOW PU ONE (05:19)
[2020-09-05] MEDS ORDERED: Dextrose 50% Syringe 50 ml 25 GM/50 ML SYRINGE IV PUSH ONE (05:20)
[2020-09-05] MEDS ORDERED: NS 0.9% 1000 ml BAG 1,000 ML IV SCH (05:30)
[2020-09-05] MEDS ORDERED: Sodium Bicarb 8.4% Vial 50 ML 150 MEQ in D5W 1000 ml BAG 850 ML IV SCH (06:00)
[2020-09-05] MEDS ORDERED: methylPREDNISolone SOD 40 mg/ml 1 ml VIAL IV SCH (06:00)
[2020-09-05] MEDS ORDERED: NS 0.9% 1000 ml BAG 1,000 ML IV ONE (06:57)
[2020-09-05] MEDS: Mometasone/Formoter 200/5 MDI INH SCH (07:08)
[2020-09-05] MEDS ORDERED: Piperacillin/Tazobac ADVAN 3.375 GM in NS 0.9% 100 ml BAG 100 ML IV ONE (07:36)
[2020-09-05] MEDS ORDERED: Norepinephrine 16MCG/ML IVPRE 4,000 MCG/250 ML BAG IV SCH (08:00)
[2020-09-05] MEDS ORDERED: Zosyn per Pharmacy NOTE FOLLOW UP SCH (08:00)
[2020-09-05] MEDS ORDERED: KCL 20 MEQ/100 ML IVPREMIX 20 MEQ/100 ML BAG IV SCH (08:00)
[2020-09-05] MEDS ORDERED: Norepinephrine 16MCG/ML IVPRE 4,000 MCG/250 ML BAG IV ONE (08:04)
[2020-09-05 08:17] LABS: Blood Urea Nitrogen 17 mg/dL (6-24); Calcium 6.7 mg/dL (8.6-10.3); EGFR African American 70.2 (>60); EGFR Non-African American 58.1 (>60); Glucose 281 mg/dL (70-100); Potassium 3.7 mmol/L (3.5-5.0); Sodium 139 mmol/L (135-145)
[2020-09-05 08:20] LABS: Troponin I 2.46 ng/mL (<0.03)
[2020-09-05] MEDS ORDERED: Amiodarone IV 150 mg/3 ml VIAL ONE (08:20)
[2020-09-05 08:21] LABS: Anion Gap 12 mmol/L (2-11); CO2 Carbon Dioxide 12 mmol/L (22-32); Chloride 115 mmol/L (101-111)
[2020-09-05 08:24] LABS: Urine Appearance Cloudy; Urine Color Red; Urine Specific Gravity 1.023 (1.002-1.030)
[2020-09-05 08:25] LABS: Urine Bacteria Absent (Absent); Urine Red Blood Cell 3+(>10/hpf) (Absent); Urine White Blood Cell 3+(>20/hpf) (Absent)
[2020-09-05 08:58] VITALS: BP 81/37
[2020-09-05] MEDS ORDERED: Insulin GLARGINE 100 un/ml 10 ml VIAL SUBCUT SCH (09:00)
[2020-09-05] MEDS ORDERED: ZOSYN 3.375 GM Q8H per EXTENDED INFUSION IV SCH (12:30)
== END 2020-09-05 08:50 | disposition expired | DRG 871 ==
LOC: ED 19:09 → MED 23:17 → MEDTELE 09-04 09:27 → ICU 09-05 05:19
PROVIDERS: ADMIT Internal Medicine; ATTEND Internal Medicine